=== PATIENT | male | born 1930 | race Caucasian/White ===

== ENCOUNTER → 2016-04-12 | Outpatient (CLI) | payer OTHER ==
[~2016-04-12] MED LIST: ACET-1175 PO; ACLI1AER3 INH; ALBUAER2 INH; ASPI81TA28 PO; DIGO0.122 PO; DOCU-94 PO; FLM4 PO; FRS/40 PO; LPT40 PO; MAGNSUS5 PO; POLY335019 PO; PRLSR20 PO; RIVA1TAB4 PO; SENN-61 PO; SODIENE PR
[2016-04-12 09:37] LABS: HEMATOCRIT 36.5 % (42-52); MEAN CELL VOLUME 93.1 fL (80-100); MEAN CORPUSCULAR HEMOGLOBIN 30.6 pg (25-34); MEAN CORPUSCULAR HGB CONC 32.9 g/dl (32-36); PLATELET COUNT 196 K/uL (130-400); RED BLOOD COUNT 3.92 M/uL (4.7-6.1); WHITE BLOOD COUNT 6.06 K/uL (4.8-10.8)
[2016-04-12 09:49] LABS: BLOOD UREA NITROGEN 25 mg/dl (7-18); BUN/CREATININE RATIO 22.9 (10-20); CALCIUM 8.7 mg/dl (8.5-10.1); CARBON DIOXIDE 32 mmol/L (21-32); CHLORIDE 104 mmol/L (98-107); GLUCOSE 81 mg/dl (70-99); SODIUM 141 mmol/L (136-145)
[2016-04-12 10:03] LABS: ALB/GLOB RATIO 0.8 (0.9-2); ALKALINE PHOSPHATASE 58 U/L (45-117); ALT/SGPT 36 U/L (12-78); AST/SGOT 24 U/L (15-37)
== END | disposition home or self-care (01) ==
LOC: C.LABUPBEA 09:02
PROVIDERS: ATTEND Family Medicine
DX: I48.2 Chronic atrial fibrillation (principal); R79.89 Other specified abnormal findings of blood chemistry; Z51.81 Encounter for therapeutic drug level monitoring; Z79.899 Other long term (current) drug therapy

== ENCOUNTER → 2016-04-16 | Outpatient (CLI) | payer OTHER | END | disposition home or self-care (01) | LOC: C.LABUPBEA 10:19 | PROVIDERS: ATTEND Family Medicine | DX: E03.9 Hypothyroidism, unspecified (principal) ==

== ENCOUNTER → 2016-05-06 | Outpatient (CLI) | payer OTHER ==
[2016-05-06 09:08] LABS: THYROXINE (T4) 7.5 mcg/dl (4.5-10.9)
[2016-05-06 09:09] LABS: T3 TOTAL 0.91 ng/ml (0.60-1.81)
== END ==
LOC: C.LABUPBEA 08:36
PROVIDERS: ATTEND Family Medicine
DX: E03.9 Hypothyroidism, unspecified (principal)

== ENCOUNTER → 2016-06-03 | Outpatient (CLI) | payer OTHER | LOC: C.LABUPBEA 08:08 | PROVIDERS: ATTEND Family Medicine | DX: E03.9 Hypothyroidism, unspecified (principal) ==

== ENCOUNTER → 2016-08-24 | Outpatient (CLI) | payer OTHER ==
[2016-08-24 09:09] LABS: BASO % 0.8 %; BASO ABS # 0.05 K/uL (0-0.2); COMPLETE YES; EOS % 2.8 %; HEMATOCRIT 37.9 % (42-52); IG% 0.2 %; LYMPH % 21.1 %; LYMPH ABS # 1.34 K/uL (1.2-3.4); MEAN CELL VOLUME 97.4 fL (80-100); MEAN CORPUSCULAR HEMOGLOBIN 31.1 pg (25-34); MEAN CORPUSCULAR HGB CONC 31.9 g/dl (32-36); MEAN PLATELET VOLUME 10.8 fL (7.4-10.4); MONO % 8.7 %; NEUT % 66.4 %; PLATELET COUNT 168 K/uL (130-400); RED BLOOD COUNT 3.89 M/uL (4.7-6.1); WHITE BLOOD COUNT 6.34 K/uL (4.8-10.8)
[2016-08-24 09:36] LABS: CALCIUM 8.5 mg/dl (8.5-10.1)
[2016-08-24 09:40] LABS: ALT/SGPT 28 U/L (12-78); BLOOD UREA NITROGEN 26 mg/dl (7-18); BUN/CREATININE RATIO 20.3 (10-20); CARBON DIOXIDE 32 mmol/L (21-32); CHLORIDE 103 mmol/L (98-107); CHOLESTEROL 91 mg/dl (0-200); GLUCOSE 85 mg/dl (70-99); MAGNESIUM 2.4 mg/dl (1.8-2.4); POTASSIUM 3.5 mmol/L (3.5-5.1); SODIUM 141 mmol/L (136-145); TRIGLYCERIDES 39 mg/dl (0-150); VERY LOW DENSITY LIPOPROT CALC 8 mg/dl
[2016-08-24 09:51] LABS: ALB/GLOB RATIO 0.9 (0.9-2); ALKALINE PHOSPHATASE 53 U/L (45-117); AST/SGOT 21 U/L (15-37); CHOLESTEROL/HDL RATIO 1.8; HDL CHOLESTEROL 50 mg/dl; LDL CHOLESTEROL CALCULATED 33 mg/dl
--- NOTE | 2016-09-02 10:14 | CODING QUERY MEDICAL NECESSITY ---
SUPPORTING DIAGNOSIS NEEDED Dr. Montero, A supporting diagnosis is required for the test/procedure performed on this patient in order for us to be reimbursed by the patient's insurance. Please provide a supporting diagnosis for the following test/procedure listed below next to the test name along with your signature. *If there is no additional diagnosis for this patient that would support the following test/procedure please document that below next to the test/procedure. Test(s)/Procedure(s) that require a supporting diagnosis: * ([id number]) VITAMIN D ASSAY DIAGNOSIS: DATE OF SERVICE: 08/24/16 Provider Signature: Date: Thank you Alfonso Meeks [facility] Information Management Once completed, please kindly fax back to [phone] For questions please call [phone]
== END | disposition home or self-care (01) ==
LOC: C.LABUPBEA 08:40
PROVIDERS: ATTEND Family Medicine
DX: E87.6 Hypokalemia (principal); E03.9 Hypothyroidism, unspecified; I50.9 Heart failure, unspecified; E78.5 Hyperlipidemia, unspecified; E55.9 Vitamin D deficiency, unspecified

== ENCOUNTER → 2016-09-07 | Outpatient (CLI) | payer OTHER ==
--- NOTE | 2016-10-25 05:30 | CODING QUERY MEDICAL NECESSITY ---
CQSUPPORTING DIAGNOSIS NEEDED A supporting diagnosis is required for the test/procedure performed on this patient in order for us to be reimbursed by the patient's insurance. Please provide a supporting diagnosis for the following test/procedure listed below next to the test name along with your signature. *If there is no additional diagnosis for this patient that would support the following test/procedure please document that below next to the test/procedure. Test(s)/Procedure(s) that require a supporting diagnosis: DOS 09/07/16 DIGOXIN THERAPUTIC NEEDS SIGNATURE AND DIAGNOSIS Provider Signature: Date: Thank you [facility] Information Management Once completed, please kindly fax back to [phone] For questions please call [phone]
== END ==
LOC: C.LABUPBEA 08:46
PROVIDERS: ATTEND Family Medicine
DX: Z01.89 Encounter for other specified special examinations (principal)

== ENCOUNTER → 2016-10-20 | Outpatient (CLI) | payer OTHER ==
[2016-10-21 09:37] LABS: URINE APPEARANCE CLOUDY (CLEAR); URINE BILIRUBIN NEG (NEG); URINE COLOR ORANGE; URINE EPITHELIAL CELL AUTO >30 /lpf (0-5); URINE NITRITE NEG (NEG); URINE PH 7.5 (4.5-7.5); URINE SPECIFIC GRAVITY 1.013 (1.000-1.030); UROBILINOGEN NEG (NEG)
[2016-10-21 09:51] LABS: MANUAL MICROSCOPIC REQUIRED? NO; REVIEW REQ? YES; SULFASALICYLIC ACID POS (NEG)
== END ==
LOC: C.LABUPBEA 23:00
PROVIDERS: ATTEND Nurse Practitioner Family
DX: R31.9 Hematuria, unspecified (principal)

== ENCOUNTER → 2016-10-21 | Outpatient (CLI) | payer OTHER ==
[2016-10-21 09:21] LABS: BASO % 0.6 %; BASO ABS # 0.04 K/uL (0-0.2); COMPLETE YES; EOS % 2.6 %; HEMATOCRIT 37.4 % (42-52); IG% 0.2 %; LYMPH % 27.4 %; LYMPH ABS # 1.76 K/uL (1.2-3.4); MEAN CELL VOLUME 97.1 fL (80-100); MEAN CORPUSCULAR HEMOGLOBIN 31.2 pg (25-34); MEAN CORPUSCULAR HGB CONC 32.1 g/dl (32-36); MEAN PLATELET VOLUME 10.9 fL (7.4-10.4); MONO % 9.3 %; NEUT % 59.9 %; PLATELET COUNT 180 K/uL (130-400); RED BLOOD COUNT 3.85 M/uL (4.7-6.1); WHITE BLOOD COUNT 6.43 K/uL (4.8-10.8)
== END ==
LOC: C.LABUPBEA 08:57
PROVIDERS: ATTEND Nurse Practitioner Family
DX: R31.9 Hematuria, unspecified (principal)

== ENCOUNTER → 2016-10-24 | Outpatient (CLI) | payer OTHER | LOC: C.LABUPBEA 08:41 | PROVIDERS: ATTEND Nurse Practitioner Family | DX: R31.9 Hematuria, unspecified (principal) ==

== ENCOUNTER → 2016-12-08 | Outpatient (CLI) | payer OTHER | LOC: C.LABUPBEA 08:23 | PROVIDERS: ATTEND Nurse Practitioner Family | DX: I48.2 Chronic atrial fibrillation (principal) ==

== ENCOUNTER → 2017-03-01 | Outpatient (CLI) | payer OTHER | END | disposition home or self-care (01) | LOC: C.LABUPBEA 08:21 | PROVIDERS: ATTEND Nurse Practitioner Family | DX: E03.9 Hypothyroidism, unspecified (principal) ==

== ENCOUNTER → 2017-03-07 | Outpatient (CLI) | payer OTHER | END | disposition home or self-care (01) | LOC: C.LABUPBEA 08:45 | PROVIDERS: ATTEND Nurse Practitioner Family | DX: I48.2 Chronic atrial fibrillation (principal); E03.9 Hypothyroidism, unspecified; Z51.81 Encounter for therapeutic drug level monitoring; Z79.899 Other long term (current) drug therapy ==

== ENCOUNTER → 2017-05-30 | Outpatient (CLI) | payer OTHER | LOC: C.LABUPBEA 08:31 | PROVIDERS: ATTEND Nurse Practitioner Family | DX: E03.9 Hypothyroidism, unspecified (principal); I48.2 Chronic atrial fibrillation ==

== ENCOUNTER → 2017-07-12 | Outpatient (CLI) | payer OTHER | LOC: C.LABUPBEA 14:13 | PROVIDERS: ATTEND Nurse Practitioner Family | DX: R31.9 Hematuria, unspecified (principal) ==

== ENCOUNTER → 2017-07-14 | Outpatient (CLI) | payer OTHER ==
[2017-07-14 10:06] LABS: BASO % 0.5 %; BASO ABS # 0.04 K/uL (0-0.2); EOS % 1.4 %; EOS ABS # 0.11 K/uL (0-0.5); HEMATOCRIT 33.9 % (42-52); IG# 0.01 K/uL (0.00-0.02); LYMPH % 21.3 %; LYMPH ABS # 1.66 K/uL (1.2-3.4); MEAN CELL VOLUME 96.6 fL (80-100); MEAN CORPUSCULAR HEMOGLOBIN 31.3 pg (25-34); MEAN CORPUSCULAR HGB CONC 32.4 g/dl (32-36); MEAN PLATELET VOLUME 10.1 fL (7.4-10.4); MONO % 8.1 %; MONO ABS # 0.63 K/uL (0.11-0.59); NEUT % 68.6 %; NEUT ABS # 5.33 K/uL (1.4-6.5); PLATELET COUNT 182 K/uL (130-400); RED CELL DISTRIBUTION WIDTH CV 15.9 % (11.5-14.5); RED CELL DISTRIBUTION WIDTH SD 55.5 fL (36.4-46.3); WHITE BLOOD COUNT 7.78 K/uL (4.8-10.8)
[2017-07-14 10:18] LABS: BLOOD UREA NITROGEN 34 mg/dl (7-18); CALCIUM 8.4 mg/dl (8.5-10.1); CARBON DIOXIDE 29 mmol/L (21-32); CREATININE 1.56 mg/dl (0.60-1.40); GLUCOSE 82 mg/dl (70-99); POTASSIUM 3.5 mmol/L (3.5-5.1); SODIUM 140 mmol/L (136-145)
== END ==
LOC: C.LABUPBEA 08:18
PROVIDERS: ATTEND Nurse Practitioner Family
DX: R31.9 Hematuria, unspecified (principal)

== ENCOUNTER → 2017-07-24 | Outpatient (CLI) | payer OTHER ==
[2017-07-24 10:39] LABS: BLOOD UREA NITROGEN 31 mg/dl (7-18); CALCIUM 8.4 mg/dl (8.5-10.1); CARBON DIOXIDE 26 mmol/L (21-32); CREATININE 1.86 mg/dl (0.60-1.40); GLUCOSE 82 mg/dl (70-99); SODIUM 138 mmol/L (136-145)
== END ==
LOC: C.LABUPBEA 09:43
PROVIDERS: ATTEND Nurse Practitioner Family
DX: I50.9 Heart failure, unspecified (principal)

== ENCOUNTER → 2017-07-27 | Outpatient (CLI) | payer OTHER ==
[2017-07-27 09:10] LABS: BLOOD UREA NITROGEN 28 mg/dl (7-18); CALCIUM 8.5 mg/dl (8.5-10.1); CARBON DIOXIDE 28 mmol/L (21-32); CREATININE 1.52 mg/dl (0.60-1.40); GLUCOSE 80 mg/dl (70-99); POTASSIUM 4.3 mmol/L (3.5-5.1); SODIUM 141 mmol/L (136-145)
== END ==
LOC: C.LABUPUNI 08:36
PROVIDERS: ATTEND Nurse Practitioner Family
DX: I50.9 Heart failure, unspecified (principal); E87.6 Hypokalemia

== ENCOUNTER 2019-01-23 10:24 | Inpatient (IN) ==
[2019-01-23] MEDS ORDERED: SODIUM CHLORIDE 0.9% 500 ML IV ONE ×2 (10:53→11:28)
[2019-01-23] MEDS ORDERED: SODIUM CHLORIDE 0.9% 250 ML IV PRN ×4 (10:53→19:55)
[2019-01-23 11:24] LABS: Hematocrit (blood only) 19.5 % (42-52); Hemoglobin 5.7 g/dL (14.0-18.0); Mean Corpuscular Hemoglobin 30.5 pg (25-34); Mean Corpuscular Hgb Conc 29.2 g/dL (32-36); Mean Corpuscular Volume 104.3 fL (80-100); Mean Platelet Volume 10.5 fL (7.4-10.4); Platelet Count 208 K/uL (130-400); RDW Coefficient of Variation 21.8 % (11.5-14.5); RDW Standard Deviation 80.7 fL (36.4-46.3); Red Blood Count 1.87 M/uL (4.7-6.1); White Blood Count 9.06 K/uL (4.8-10.8)
[2019-01-23 11:25] LABS: INR 1.1 (0.9-1.1); Prothrombin Time 11.3 Seconds (9.0-12.0)
[2019-01-23 11:28] LABS: Aspartate Aminotransferase 34 U/L (15-37); BUN Creatinine Ratio 37.3 (10-20); Blood Urea Nitrogen 57 mg/dl (7-18); Calcium 8.8 mg/dl (8.5-10.1); Carbon Dioxide 25 mmol/L (21-32); Chloride 115 mmol/L (98-107); Creatinine Clr Calc Pharmacy 33.8 ml/min; Est GFR (African American) 47.4; Est GFR (Non-African American) 40.9; Glucose 91 mg/dl (70-99); Lipase 119 U/L (73-393); Magnesium 2.9 mg/dl (1.8-2.4); Potassium 4.7 mmol/L (3.5-5.1); Sodium 145 mmol/L (136-145)
[2019-01-23 11:33] LABS: Alanine Aminotransferase 37 U/L (12-78); Albumin Globulin Ratio 0.4 (0.9-2); Alkaline Phosphatase 111 U/L (45-117); Bilirubin,Total 0.3 mg/dl (0.2-1); Globulin 4.9 gm/dl (2.5-4.0); NT Pro B Type Natriuretic Pept 1218 pg/ml (0-1800); Total Protein 6.9 gm/dl (6.4-8.2); Troponin I < 0.015 ng/ml (0-0.045)
[2019-01-23 11:40] LABS: Anisocytosis Present; Basophils # (auto) 0.01 K/uL (0-0.2); Basophils % (auto) 0.1 %; Echinocytes 1+; Eosinophils # (auto) 0.08 K/uL (0-0.5); Eosinophils % (auto) 0.9 %; Immature Granulocytes # (auto) 0.03 K/uL (0.00-0.02); Immature Granulocytes % (auto) 0.3 %; Lymphocytes # (auto) 0.89 K/uL (1.2-3.4); Lymphocytes % (auto) 9.8 %; Monocytes # (auto) 0.72 K/uL (0.11-0.59); Monocytes % (auto) 7.9 %; Neutrophils # (auto) 7.33 K/uL (1.4-6.5)
[2019-01-23] MEDS ORDERED: OPTIRAY 320 125ml IV PRN (11:46)
[2019-01-23] MEDS ORDERED: PANTOprazole 40 MG in SYRINGE 0 ML IV ONE ×2 (12:00→13:15)
--- NOTE | 2019-01-23 12:29 | CT Scan Report ---
ABDOMEN AND PELVIS CT WITH IV CONTRAST CT DOSE: 281.04 mGy.cm HISTORY: GI bleed. TECHNIQUE: Multiaxial CT images of the abdomen and pelvis were performed following the use of intrave nous contrast. A dose lowering technique was utilized adhering to the principles of ALARA. COMPARISON STUDY: Abdomen and pelvis CT 04/02/2015. FINDINGS: Small bilateral pleural effusions. Consolidation within the bilateral lower lobes. Intersti tial thickening at the lung bases is noted. Dense pericardial calcifications. No pneumoperitoneum. No pneumatosis. There is a right total hip arthroplasty. The heart is enlarged. No hepatic or splenic m asses. The adrenal glands and pancreas are unremarkable. An IVC filter is noted. No retroperitoneal l ymphadenopathy. There is a cluster of stones within the lower pole of the left kidney. There are 2 ri ght renal calculi with the largest in the lower pole measuring 1 cm. Mild bilateral perinephric fat s tranding. There is moderate bilateral hydroureteronephrosis to the level of the ureterovesical juncti ons. No definite obstructing ureteral calculi identified. Of note, the distal ureters and bladder are partially obscured by metallic artifact. There is a Persaud catheter within the bladder lumen. The mary jane dder is markedly thickening and contains a few small bladder diverticula. There are few stones within the bladder. There is inflammatory change surrounding the bladder. There is diffuse urothelial thick ening within the bilateral renal collecting systems and bilateral ureters. There is inflammatory rivers ge within the right upper quadrant surrounding the duodenal bulb. Possible focal ulceration within th e anterior wall of the proximal duodenum best seen on image 153. This measures 1 cm. There is also mi ld thickening within the proximal duodenum. Therefore, these findings are concerning for peptic ulcer disease/impending perforation. No extraluminal gas identified this time. The inflammatory change als o surrounds the gallbladder. However, there is no definite gallbladder wall thickening. This may be r eactive to the suspected duodenal abnormality rather than an acute cholecystitis. 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 Moderate well-formed stool within the colon. M ild presacral and body wall edema. No evidence for bowel obstruction. Normal appendix. IMPRESSION: 1. Inflammatory change within the right upper quadrant surrounding the thickened proximal duodenum. P ossible 1 cm ulceration along the anterior wall of the proximal duodenum. Therefore, findings are con cerning for peptic ulcer disease with possible impending perforation. No evidence for extraluminal ga s at this time. Endoscopy is recommended for further evaluation. 2. The inflammatory change also a extends to the gallbladder. However, there is no gallbladder wall t hickening. Acute cholecystitis would be considered less likely. Clinical correlation recommended. 3. Moderate bilateral hydroureteronephrosis with diffuse urothelial thickening within the renal colle cting systems and ureters. The bilateral hydronephrosis favors chronic outlet obstruction. Associated urothelial thickening may represent a superimposed pyelitis/pyelonephritis. Recommend correlation wi urinalysis. 4. There is also marked bladder wall thickening and inflammatory change which is decompressed by Fole y catheter. Findings are consistent with a cystitis. 5. Small bilateral pleural effusions with consolidation of the bilateral lower lobes. This may repres ent atelectasis or pneumonia. 6. Cardiomegaly with pericardial calcifications, unchanged. 7. Diffuse interstitial thickening within the lung bases. This may represent mild pulmonary edema. A. Bilateral nephrolithiasis. 9. Additional findings as described above. Electronically signed by: Zan Rivera M.D. 01/23/2019 12:27 PM
[2019-01-23] MEDS: PANTOprazole 40 MG in DEXTROSE 5% 100 ML IV SCH ×2 (12:57→17:03)
[2019-01-23] MEDS ORDERED: ICU PROTOCOL FOR HYPERGLYCEMIA PRN (13:14)
[2019-01-23] MEDS ORDERED: SODIUM CHLORIDE 0.9% 1000ML 1,000 ML IV SCH (13:15)
[2019-01-23] MEDS ORDERED: FAMOTIDINE 20MG/5ML IV PUSH IV STA (13:38)
--- NOTE | 2019-01-23 13:39 | Billing Data ---
Coding Level of Care Code Critical Care 1st 30-74 mins
--- NOTE | 2019-01-23 13:39 | History & Physical Report ---
Date of Service January 23, 2019 Assessment & Plan (1) Hypovolemic shock: (2) GI bleed: Acute blood loss anemia secondary to above Admit to ICU 2 units of packed RBCs ordered Received 1 L normal saline Placed on 70 cc/h normal saline Received Pepcid 20 mg IV x1 Received Protonix 80 mg IV then placed on Protonix drip GI consulted to/and was informed ICU consulted Patient remains full code, power of patent prosecution attorney is his brother who was informed with the updates SCD boots for DVT prophylaxis (3) Atrial fibrillation: Was in digoxin at home, heart rate is inappropriately low in the 50s, will order digoxin level (4) Duodenal ulcer: (5) Encephalopathy acute: Likely multifactorial secondary to hypotension, worsening dementia, GI bleed, severe anemia History of Present Illness 88 years old man with past medical history of dyslipidemia, hypothyroidism, BPH, A. fib on Xarelto was sent to the hospital from [facility] as he had a large bloody bowel movement overnight. I spoke with his nurse Hilda who told me that he had fresh blood overnight, there was another report that said he had also melena/black stool likely from the nurse before her. As far as his nurse Hilda said she was only one large bloody bowel movement, patient had a CBC done this morning that showed a hemoglobin of 5.7, he was sent to the ED, his low hemoglobin was confirmed, he was hypotensive 86/47, CT scan abdomen showed inflammatory change in right upper quadrant and possible 1 cm ulceration along the anterior wall of the proximal duodenum that is concerning for peptic ulcer with impending perforation. As per residential patient is full code, currently he is too weak to have a conversation, his brother has not visited him in a long time and was not aware of his current condition. Nursing staff at residential reported that his baseline was slightly dementia but was able to walk with cleaner assistant, able to have a conversation. Primary Care Provider: [facility] Allergies Allergy/AdvReac Type Severity Reaction Status Date / Time No Known Allergies Allergy Unknown Verified 01/23/19 12:29 Home Medications Home Medications Medication Instructions Recorded Confirmed Type digoxin 125 mcg PO DAILY #0 tab 01/27/15 01/23/19 History acetaminophen 650 mg PO Q6H PRN #0 tab 05/17/15 01/23/19 History docusate sodium 100 mg PO BID 30 Days #30 cap 05/17/15 01/23/19 History magnesium hydroxide [Milk of 30 ml PO DAILY #0 ml 05/17/15 01/23/19 History Magnesia] sodium phosphates [Fleet Enema] 118 ml IN DAILY PRN #0 btl 05/17/15 01/23/19 History B complex-minerals [Stress B Plus 1 tab PO DAILY 01/23/19 01/23/19 History Zinc] atorvastatin 40 mg PO HS 01/23/19 01/23/19 History bisacodyl 10 mg IN DAILY PRN 01/23/19 01/23/19 History cholecalciferol (vitamin D3) 2,000 unit PO DAILY 01/23/19 01/23/19 History levothyroxine 50 mcg PO DAILY 01/23/19 01/23/19 History multivitamin 1 tab PO DAILY 01/23/19 01/23/19 History potassium chloride 20 meq PO DAILY 01/23/19 01/23/19 History rivaroxaban [Xarelto] 15 mg PO DAILY 01/23/19 01/23/19 History sennosides-docusate sodium 1 tab-cap PO DAILY 01/23/19 01/23/19 History [Senokot-S] tamsulosin 0.4 mg PO HS 01/23/19 01/23/19 History Past Med/Surg History Medical History (Updated 01/23/19 @ 13:34 by Torsten Freitas MD) Left acute arterial ischemic stroke, MCA (middle cerebral artery) Pneumonia of both lower lobes Sepsis Family History (Updated 01/23/19 @ 13:27 by Jona Augustin) Other Family history non-contributory Social History Smoking Status: Unknown if ever smoked Review of Systems Review of Systems: Review of systems unobtainable due to patient medical condition Physical Exam Physical Exam: Physical examination General frail elderly man appears to be in severe distress HEENT: Atraumatic , normocephalic /appears to be pale with dry mucous membrane /normal external ear inspection Neck: Supple /no swelling /central trach Heart: S1/S2 tachycardia/no gallop /no rub /no murmur Lungs: Clear to auscultation bilaterally/poor inspiratory effort, no wheezing/no use of accessory muscles of respiration Abdomen: Soft/nontender/no guarding/no rebound/no organomegaly/no pulsatile mass Musculoskeletal: No swelling/no edema/no tenderness/normal range of motion Neuro exam: Lethargic but able to follow commands Psychiatric evaluation: Unable to evaluate Skin: No rash on exposed skin area/no erythema Extremity: No edema E Results & Data Vital Signs (Past 12 Hours) Vital Signs Temp Pulse Pulse Resp BP BP Pulse Ox 01/23/19 13:15 50 L 16 86/47 L 01/23/19 12:55 62 18 95/43 L 96 01/23/19 12:40 35.0 C L 52 L 16 81/45 L 96 01/23/19 12:30 35.0 C L 65 68 16 82/47 L 82/47 L 97 01/23/19 12:20 34.8 C L 60 18 92/58 L 99 01/23/19 11:00 60 22 101/49 L 98 01/23/19 10:58 64 21 97 01/23/19 10:41 95 01/23/19 10:38 33.8 C L 60 18 94/54 L 95 01/23/19 10:31 60 20 96/69 L 98 Code Status & VTE Plan Code Status Full code Critical Care Time Total Critical Care Time: 40 PG Care Time/CCT Total # of Minutes Spent Total Time Spent with Patient: 35 minutes total time spent is greater than 50% in coordination of care (as documented) at patient's floor/unit and/or counseling patient/family discussion of care with nursing staff Total Critical Care Time: 40
[2019-01-23] MEDS ORDERED: PROTHROMBIN COMP CONC- KCENTRA 2,000 UNITS in SYRINGE 0 ML IV SCH (14:00)
--- NOTE | 2019-01-23 14:46 | Critical Care Consultation ---
Date of Consultation January 23, 2019 Assessment & Plan (1) Acute blood loss anemia: Reason Critically Ill: Patient is an 88 y/o male with hx of Afib on Xarelto who presented from SNF with acute blood loss anemia (outpatient lab of 5.2) with reports of melena this AM. Neuro: Oriented to person confused to place and time Cardiac/Vascular: Hx of atrial Fibrillation on Xarelto - unfortunately reported to receive Xarelto this AM per staff BPs in ED were 80s/40s; now 100s/60s following fluid resuscitation. Pulse in 60s and is on Digoxin; Digoxin level was ordered by hospitalist on admission and is pending Calcified pericardium viewed on CT Abd/Pelvis, along with Cardiomegaly Monitor Hemodynamics with pressure support with IVFs. Trop x1 was negative in ED BNP drawn in ED was WNL Hold Digoxin and hold atorvastatin Pulm: No requiring supplemental O2 On CT Abd/Pelvis; Small bilateral pleural effusions with consolidation of the bilateral lower lobes. This may represent atelectasis or pneumonia. Continuous Pulse Ox GI: Presumed upper GI bleed with Melena; on Xarelto; denies prior hx of GI bleed. CT Abd/Pelvis with IV contrast performed in ED; noted to have 1cm ulceration of duodenum - most likely source of GI bleed. - Inflammatory change within the right upper quadrant surrounding the thickened proximal duodenum. Possible 1 cm ulceration along the anterior wall of the proxi mal duodenum. Therefore, findings are concerning for peptic ulcer disease with possible impending perforation. No evidence for extraluminal gas at this time. Endoscopy is recommended for further evaluation. - The inflammatory change also a extends to the gallbladder. However, there is no gallbladder wall thickening. Acute cholecystitis would be considered less likely. Clinical correlation recommended. GI consulted and made aware; will consider General Surgery consult based on EGD findings. Diet: NPO PPI Pantoprazole drip started in ED, will continue; also received Pepcid 20mg IV push ordered by hospitalist. Lipase was 119 WNL Renal/Lytes: Sodium and potassium were WNL Creatinine was 1.52 which appears to be at baseline from prior reported values in EMR Calcium was 8.8 Mag elevated at 2.9 Did receive 1.5L Bolus in ED BUN elevated consistent with GI bleed IVF NSS @ 70mL : Chronic indwelling morocho cath Urine cultures drawn in ED CT Abd/Pelvis reports the following: - Moderate bilateral hydroureteronephrosis with diffuse urothelial thickening within the renal collecting systems and ureters. The bilateral hydronephrosis favors chronic outlet obstruction. Associated urothelial thickening may represent a superimposed pyelitis/pyelonephritis. Recommend correlation with urinalysis. - There is also marked bladder wall thickening and inflammatory change which is decompressed by Morocho catheter. Findings are consistent with a cystitis. Endo: Hx of Hypothyroid; med list reports Synthroid 50mcg daily; Had TSH drawn this AM at [facility] - which was elevated 7.280; Free T4 was WNL 1.07 No reported or documented hx of DM ICU hyperglycemia protocol ordered Heme: Acute blood loss anemia from GI Bleed - melena; most likely Upper GI from Hgb level this AM 5.2 at [facility]; then was 5.7 in ED- review of EMR shows prior values of 12/15/18 of 9.4; 12/26/18 of 8.1; could be slow GI bleed; prior values were 10.7-11 in 2018 Will trend H+H Platelets WNL 208; will order Fibrinogen level, no current signs of DIC; no other external sources of bleeding outside of melena PT was 11.3; INR 1.1 WNL from ED workup 2 units of pRBCs were ordered in ED; KCentra was ordered and given in ED FFP was ordered in ED, but will give pRBCs as priority then okay for FFP ID: Blood cultures drawn Urine cultures drawn Chronic Indwelling morocho catheter Lines: 14G peripheral IVs DVT ppx: SCDs; chemical contraindicated in GI bleed Resuscitation Status: Full Code; did discuss with patient; POA brother is estranged and has not talked about code status wishes. (2) GI bleed: (3) Hypovolemic shock: (4) Atrial fibrillation: (5) Duodenal ulcer: (6) Encephalopathy acute: Supervising Physician Co-Signing Physician Notes Patient seen and examined. EMR reviewed. Discussed with practice resident. Agree with assessment and plan as noted. Impression: 88-year-old male with likely upper GI bleed. Recommendations: 1. Upper GI bleed: Suspect peptic ulcer disease given CT findings. Continue Protonix. Plan on EGD today after resuscitation. Continue blood products and serial hemoglobin and hematocrits. May need general surgery consultation based on but will hold off for now. Continue n.p.o. pending EGD results. 2. Mild acute kidney injury: Suspect prerenal. Continue IV fluids and resuscitation with blood products. Reassess in the morning. CT scan did demonstrate mild bilateral hydronephrosis but the patient does have a chronic indwelling Morocho. 3. Coagulopathy: The patient was maintained on Xarelto for atrial fibrillation. He received Kcentra in the emergency room hold all anticoagulation for now. DVT prophylaxis will be applied with SCDs only. 4. Protein calorie malnutrition with cachexia: Suspect secondary to poor p.o. intake. Continue to follow for now. Dietary consultation may be considered once the patient can take oral intake. 5. History of atrial fibrillation: Appears rate controlled currently. To need to follow for now. Additional recommendations will be based once we have EGD data. Appreciate GI assistance History of Present Illness Reason for Consultation: Acute blood loss anemia; GI Bleed Requesting Physician: Dr. Freitas Attending Physician: Torsten Freitas MD History of Present Illness History limited by: Confusion. Mr. Katy Castanon is an 88 y/o male who presented from SNF for abnormal Hgb of 5.2 after nursing staff noticed melena this AM. He is on Xarelto for afib. Nursing staff still gave patient Xarelto this AM per ER report. He not a reliable historian. He does deny complaints. He denies abdominal pain, shortness of breath, chest pain, dizziness, weakness. He did have two units of pRBCs ordered and was getting one unit transfused when evaluated in ED. He did get IVF 1L Bolus with soft systolic pressures that were improved s/p fluid resuscitation. He denies prior GI Bleed when asked. He is not able to endorse wishes of code status. His brother was contacted who was his reported POA but was unable to signify if patient had wishes other than being full code status. Allergies Allergy/AdvReac Type Severity Reaction Status Date / Time No Known Allergies Allergy Unknown Verified 01/23/19 12:29 Home Medications Home Medications Medication Instructions Recorded Confirmed Type digoxin 125 mcg PO DAILY #0 tab 01/27/15 01/23/19 History acetaminophen 650 mg PO Q6H PRN #0 tab 05/17/15 01/23/19 History docusate sodium 100 mg PO BID 30 Days #30 cap 05/17/15 01/23/19 History magnesium hydroxide [Milk of 30 ml PO DAILY #0 ml 05/17/15 01/23/19 History Magnesia] sodium phosphates [Fleet Enema] [address] DAILY PRN #0 btl 05/17/15 01/23/19 History B complex-minerals [Stress B Plus 1 tab PO DAILY 01/23/19 01/23/19 History Zinc] atorvastatin 40 mg PO HS 01/23/19 01/23/19 History bisacod[address] DAILY PRN 01/23/19 01/23/19 History cholecalciferol (vitamin D3) 2,000 unit PO DAILY 01/23/19 01/23/19 History levothyroxine 50 mcg PO DAILY 01/23/19 01/23/19 History multivitamin 1 tab PO DAILY 01/23/19 01/23/19 History potassium chloride 20 meq PO DAILY 01/23/19 01/23/19 History rivaroxaban [Xarelto] 15 mg PO DAILY 01/23/19 01/23/19 History sennosides-docusate sodium 1 tab-cap PO DAILY 01/23/19 01/23/19 History [Senokot-S] tamsulosin 0.4 mg PO HS 01/23/19 01/23/19 History Patient History Medical History Left acute arterial ischemic stroke, MCA (middle cerebral artery) Pneumonia of both lower lobes Sepsis Family History Other Family history non-contributory Social History Smoking Status: Unknown if ever smoked Review of Systems Review of Systems: Unobtainable due to cognitive status Physical Exam Constitutional: + thin, + frail appearing, cooperative and comfortable Eyes: PERRL and EOM intact bilaterally ENMT: Nose: no external nose abnormality and no epistaxis Mouth: + dry oral mucous membranes Neck: normal visual inspection and trachea midline Respiratory: no respiratory distress and does not use accessory muscles Auscultation: lungs clear to auscultation bilaterally Cardiovascular: Rate/Rhythm: regular rate and + irregularly irregular Gastrointestinal (Abdomen): Inspection/Auscultation: abdomen normal to i nspection; caput medusae absent Percussion/Palpation: abdomen nontender, no guarding and abdomen not rigid Musculoskeletal: Head/Neck/Chest: normocephalic and head atraumatic Skin: no rashes, warm and dry Neurologic: moves all extremities and awake Psychiatric: Orientation: alert and oriented to person; + not oriented to place and + not oriented to time Affect: + irritable affect Results & Data Vital Signs (Past 12 Hours) Vital Signs Temp Pulse Pulse Resp BP BP Pulse Ox 01/23/19 13:45 34.5 C L 60 18 114/54 L 98 01/23/19 13:15 50 L 16 86/47 L 01/23/19 12:55 62 18 95/43 L 96 01/23/19 12:40 35.0 C L 52 L 16 81/45 L 96 01/23/19 12:30 35.0 C L 65 68 16 82/47 L 82/47 L 97 01/23/19 12:20 34.8 C L 60 18 92/58 L 99 01/23/19 11:00 60 22 101/49 L 98 01/23/19 10:58 64 21 97 01/23/19 10:41 95 01/23/19 10:38 33.8 C L 60 18 94/54 L 95 01/23/19 10:31 60 20 96/69 L 98 PG Care Time/CCT Total # of Minutes Spent Total Time Spent with Patient: Total time spent is greater than 50% in coordination of care (as documented) at patient's floor/unit and/or counseling patient: Resident Activity Tracking Resident Involvement: Resident Care Provided Care Provided: Adult Hospital Medicine
[2019-01-23] MEDS ORDERED: METOCLOPRAMIDE HCL 20 MG in SODIUM CHLORIDE 0.9% 50 ML IV ONE (15:00)
--- NOTE | 2019-01-23 15:02 | Gastrointestinal Consultation ---
Date of Consultation January 23, 2019 Assessment & Plan (1) Acute blood loss anemia: (2) GI bleed: (3) Hypovolemic shock: 1. NPO for now. 2. Reglan 10 mg IV x 1 now. 3. Continue PPI ggt at 8 mg/hr. 4. EGD with Dr. Schneider in the OR. 5. Recommend surgical consultation. 6. Additional recommendations results of testing. 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 History of Present Illness Reason for Consultation: GIB Requesting Physician: Dr. Gallardo Attending Physician: Torsten Freitas MD History of Present Illness Patient is a 88 year-old male with a history of atrial fibrillation and altered mental status residing at a [facility] admitted with profound anemia noted to have melena witnessed by staff at [facility]. On arrival, he was noted to have a H&H of 5.7/19.5. Patient is hypotensive. Receiving his second unit of packed red blood cells. He is NPO and remains on a PPI ggt. CT imaging was obtained and demonstrated "Inflammatory change within the right upper quadrant surrounding the thickened proximal duodenum. Possible 1 cm ulceration along the anterior wall of the proximal duodenum. Therefore, findings are concerning for peptic ulcer disease with possible impending perforation". He is unable to provide any reliable medical history. His brother is the POA and is not present at the time of evaluation. Allergies Allergy/AdvReac Type Severity Reaction Status Date / Time No Known Allergies Allergy Unknown Verified 01/23/19 12:29 Home Medications Home Medications Medication Instructions Recorded Confirmed Type digoxin 125 mcg PO DAILY #0 tab 01/27/15 01/23/19 History acetaminophen 650 mg PO Q6H PRN #0 tab 05/17/15 01/23/19 History docusate sodium 100 mg PO BID 30 Days #30 cap 05/17/15 01/23/19 History magnesium hydroxide [Milk of 30 ml PO DAILY #0 ml 05/17/15 01/23/19 History Magnesia] sodium phosphates [Fleet Enema] 118 ml DC DAILY PRN #0 btl 05/17/15 01/23/19 History B complex-minerals [Stress B Plus 1 tab PO DAILY 01/23/19 01/23/19 History Zinc] atorvastatin 40 mg PO HS 01/23/19 01/23/19 History bisacodyl 10 mg DC DAILY PRN 01/23/19 01/23/19 History cholecalciferol (vitamin D3) 2,000 unit PO DAILY 01/23/19 01/23/19 History levothyroxine 50 mcg PO DAILY 01/23/19 01/23/19 History multivitamin 1 tab PO DAILY 01/23/19 01/23/19 History potassium chloride 20 meq PO DAILY 01/23/19 01/23/19 History rivaroxaban [Xarelto] 15 mg PO DAILY 01/23/19 01/23/19 History sennosides-docusate sodium 1 tab-cap PO DAILY 01/23/19 01/23/19 History [Senokot-S] tamsulosin 0.4 mg PO HS 01/23/19 01/23/19 History Patient History Medical History Left acute arterial ischemic stroke, MCA (middle cerebral artery) Pneumonia of both lower lobes Sepsis Family History Other Family history non-contributory Social History Smoking Status: Unknown if ever smoked Immunizations: Unable to obtain from patient due to altered mental status Review of Systems Review of Systems: Unobtainable due to cognitive status Physical Exam Constitutional: + thin Eyes: EOM intact bilaterally Neck: normal visual inspection Respiratory: + labored breathing Auscultation: + rhonchi Cardiovascular: Rate/Rhythm: regular rate, regular rhythm and + tachycardic Gastrointestinal (Abdomen): Inspection/Auscultation: normal bowel sounds Percussion/Palpation: abdomen soft Musculoskeletal: Ankle: + effusion Skin: no rashes, warm and dry + pallor Psychiatric: Orientation: alert; + not oriented to place and + not oriented to time Results & Data Vital Signs (Past 12 Hours) Vital Signs Temp Pulse Pulse Resp BP BP Pulse Ox 01/23/19 13:45 34.5 C L 60 18 114/54 L 98 01/23/19 13:15 50 L 16 86/47 L 01/23/19 12:55 62 18 95/43 L 96 01/23/19 12:40 35.0 C L 52 L 16 81/45 L 96 01/23/19 12:30 35.0 C L 65 68 16 82/47 L 82/47 L 97 01/23/19 12:20 34.8 C L 60 18 92/58 L 99 01/23/19 11:00 60 22 101/49 L 98 01/23/19 10:58 64 21 97 01/23/19 10:41 95 01/23/19 10:38 33.8 C L 60 18 94/54 L 95 01/23/19 10:31 60 20 96/69 L 98 Laboratory Results Abnormal lab results 01/23/19 01/23/19 01/23/19 Range/Units 10:52 10:52 10:52 RBC 1.87 L (4.7-6.1) M/uL Hgb 5.7 L* (14.0-18.0) g/dL Hct 19.5 L* (42-52) % MCV 104.3 H (80-100) fL MCHC 29.2 L (32-36) g/dL RDW Std Deviation 80.7 H (36.4-46.3) fL RDW Coeff of Elaine 21.8 H (11.5-14.5) % MPV 10.5 H (7.4-10.4) fL Immature Gran # (Auto) 0.03 H (0.00-0.02) K/uL Neut # (Auto) 7.33 H (1.4-6.5) K/uL Lymph # (Auto) 0.89 L (1.2-3.4) K/uL [place] # (Auto) 0.72 H (0.11-0.59) K/uL Chloride 115 H (98-107) mmol/L BUN 57 H (7-18) mg/dl Creatinine 1.52 H (0.6-1.4) mg/dl BUN/Creatinine Ratio 37.3 H (10-20) Magnesium 2.9 H (1.8-2.4) mg/dl Albumin 2.0 L (3.4-5.0) gm/dl Globulin 4.9 H (2.5-4.0) gm/dl Albumin/Globulin Ratio 0.4 L (0.9-2) Crossmatch See Detail PG Care Time/CCT Total # of Minutes Spent Total Time Spent with Patient: Total time spent is greater than 50% in coordination of care (as documented) at patient's floor/unit and/or counseling patient: (1) GI bleed GI bleed type/associated pathology: unspecified gastrointestinal hemorrhage type Qualified Code(s): K92.2 - Gastrointestinal hemorrhage, unspecified
[2019-01-23] MEDS ORDERED: fentaNYL citrate 100 MCG/2 ML VIAL ONE (15:33)
[2019-01-23 15:40] LABS: Fibrinogen 456 mg/dl (184-400)
--- NOTE | 2019-01-23 16:47 | Anesthesiology Consultation ---
Date of Service January 23, 2019 Assessment & Plan (1) Encounter for pre-operative examination: (2) Upper GI bleed: (3) Anemia: (4) Altered mental status: (5) CKD (chronic kidney disease): (6) Encephalopathy acute: (7) Duodenal ulcer: (8) Atrial fibrillation: (9) GI bleed: Chart Review Chart Review: Acceptable Risk for Surgery (surgery is an emergency for upper GI bleed) Consults Requested none patient is being followed in the ICU ASA [id number] History Surgery Operation Date: 01/23/19 07:00 Proposed Procedures p Esophagogastroduodenoscopy for GI Bleed - Arden Whatley Case, DO Height/Weight Height: 6 ft Weight: 68.4 kg Allergies Allergy/AdvReac Type Severity Reaction Status Date / Time No Known Allergies Allergy Unknown Verified 01/23/19 12:29 Medications Home Medications Medication Instructions Recorded Confirmed Last Taken digoxin 125 mcg PO DAILY #0 tab 01/27/15 01/23/19 01/23/19 acetaminophen 650 mg PO Q6H PRN #0 tab 05/17/15 01/23/19 Unknown docusate sodium 100 mg PO BID 30 Days #30 cap 05/17/15 01/23/19 01/23/19 magnesium hydroxide [Milk of 30 ml PO DAILY #0 ml 05/17/15 01/23/19 01/20/19 Magnesia] sodium phosphates [Fleet Enema] 118 ml IA DAILY PRN #0 btl 05/17/15 01/23/19 Unknown B complex-minerals [Stress B Plus 1 tab PO DAILY 01/23/19 01/23/19 01/23/19 Zinc] atorvastatin 40 mg PO HS 01/23/19 01/23/19 01/22/19 bisacodyl 10 mg IA DAILY PRN 01/23/19 01/23/19 01/12/19 cholecalciferol (vitamin D3) 2,000 unit PO DAILY 01/23/19 01/23/19 01/23/19 levothyroxine 50 mcg PO DAILY 01/23/19 01/23/19 01/23/19 multivitamin 1 tab PO DAILY 01/23/19 01/23/19 01/23/19 potassium chloride 20 meq PO DAILY 01/23/19 01/23/19 01/23/19 rivaroxaban [Xarelto] 15 mg PO DAILY 01/23/19 01/23/19 01/23/19 sennosides-docusate sodium 1 tab-cap PO DAILY 01/23/19 01/23/19 01/23/19 [Senokot-S] tamsulosin 0.4 mg PO HS 01/23/19 01/23/19 01/22/19 Active Medications Generic Name Dose Route Start Last Admin Trade Name Freq PRN Reason Stop Dose Admin Sodium Chloride 250 mls @ 15 mls/hr 01/23/19 10:53 01/23/19 12:20 Nss IV 02/22/19 10:52 15 mls/hr .[id number] PRN Administration For Transfusion Pantoprazole Sodium 40 mg/ 100 mls @ 20 mls/hr 01/23/19 13:00 01/23/19 12:57 Dextrose IV 02/22/19 12:59 20 mls/hr Q5H DENIS Administration Sodium Chloride 1,000 mls @ 70 mls/hr 01/23/19 13:15 01/23/19 15:10 Nss 1000ml IV 02/22/19 13:14 70 mls/hr .[id number] DENIS Administration Prothrombin Complex Concent ( 80 mls @ 10 mls/min 01/23/19 14:00 01/23/19 13:57 Human) 2,000 units/ Syringe IV 01/23/19 18:00 10 mls/min TODAY@1400 DENIS Administration Protocol Ioversol 94 ml 01/23/19 11:46 01/23/19 11:47 Optiray 320 125ml IV 01/27/19 11:45 94 ml ONCE PRN Administration Interaction Checking NPO Last Intake of Fluids Comment: Unknown according to [facility] Date Last Intake of Solids: 01/23/19 Time Last Intake of Solids: 08:30 Past Medical History Medical History (Updated 01/23/19 @ 16:53 by Zan Hernandez MD) Altered mental status (Acute) Anemia (Acute) Cardiomegaly CKD (chronic kidney disease) (Acute) GI bleed (Acute) Left acute arterial ischemic stroke, MCA (middle cerebral artery) Pneumonia of both lower lobes Sepsis Past Family History Family History Other Family history non-contributory Social History Smoking Status: Unknown if ever smoked Physical Exam Vital Signs Last Vital Signs Temp 35.8 C L 01/23/19 16:44 Pulse 74 01/23/19 16:44 Resp 14 01/23/19 16:44 BP 110/68 01/23/19 16:44 Pulse Ox 96 01/23/19 16:44 Testing Laboratory Results 01/23/19 10:52 01/23/19 10:52 PT 11.3 Seconds (9.0-12.0) 01/23/19 10:52 INR 1.1 (0.9-1.1) 01/23/19 10:52 Blood Type A Positive 01/23/19 10:52 Antibody Screen NEGATIVE 01/23/19 10:52 Electrocardiogram Date: 01/23/19 Findings: + NSST changes (infererior, anterolateral), + AFIB @ (65) and + T wave inversion (anterior) Chest X-Ray ABDOMEN AND PELVIS CT WITH IV CONTRAST CT DOSE: 281.04 mGy.cm HISTORY: GI bleed. TECHNIQUE: Multiaxial CT images of the abdomen and pelvis were performed following the use of intravenous contrast. A dose lowering technique was utilized adhering to the principles of ALARA. COMPARISON STUDY: Abdomen and pelvis CT 04/02/2015. FINDINGS: Small bilateral pleural effusions. Consolidation within the bilateral lower lobes. Interstitial thickening at the lung bases is noted. Dense per icardial calcifications. No pneumoperitoneum. No pneumatosis. There is a right total hip arthroplasty. The heart is enlarged. No hepatic or splenic masses. The adrenal glands and pancreas are unremarkable. An IVC filter is noted. No retroperitoneal lymphadenopathy. There is a cluster of stones within the lower pole of the left kidney. There are 2 right renal calculi with the largest in the lower pole measuring 1 cm. Mild bilateral perinephric fat stranding. There is moderate bilateral hydroureteronephrosis to the level of the ureterovesical junctions. No definite obstructing ureteral calculi identified. Of note, the distal ureters and bladder are partially obscured by metallic artifact. There is a Persaud catheter within the bladder lumen. The bladder is markedly thickening and contains a few small bladder diverticula. There are few stones within the bladder. There is inflammatory change surrounding the bladder. There is diffuse urothelial thickening within the bilateral renal collecting systems and bilateral ureters. There is inflammatory change within the right upper quadrant surrounding the duodenal bulb. Possible focal ulceration within the anterior wall of the proximal duodenum best seen on image 153. This measures 1 cm. There is also mild thickening within the proximal duodenum. Therefore, these findings are concerning for peptic ulcer disease/impending perforation. No extraluminal gas identified this time. The inflammatory change also surrounds the gallbladder. However, there is no definite gallbladder wall thickening. This may be reactive to the suspected duodenal abnormality rather than an acute cholecystitis. 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 Moderate well-formed stool within the colon. Mild presacral and body wall edema. No evidence for bowel obstruction. Normal appendix. IMPRESSION: 1. Inflammatory change within the right upper quadrant surrounding the thickened proximal duodenum. Possible 1 cm ulceration along the anterior wall of the proximal duodenum. Therefore, findings are concerning for peptic ulcer disease with possible impending perforation. No evidence for extraluminal gas at this time. Endoscopy is recommended for further evaluation. 2. The inflammatory change also a extends to the gallbladder. However, there is no gallbladder wall thickening. Acute cholecystitis would be considered less likely. Clinical correlation recommended. 3. Moderate bilateral hydroureteronephrosis with diffuse urothelial thickening within the renal collecting systems and ureters. The bilateral hydronephrosis favors chronic outlet obstruction. Associated urothelial thickening may represent a superimposed pyelitis/pyelonephritis. Recommend correlation with urinalysis. 4. There is also marked bladder wall thickening and inflammatory change which is decompressed by Persaud catheter. Findings are consistent with a cystitis. 5. Small bilateral pleural effusions with consolidation of the bilateral lower lobes. This may represent atelectasis or pneumonia. 6. Cardiomegaly with pericardial calcifications, unchanged. 7. Diffuse interstitial thickening within the lung bases. This may represent mild pulmonary edema. A. Bilateral nephrolithiasis. 9. Additional findings as described above. Electronically signed by: Zan Rivera M.D. 01/23/2019 12:27 PM Dictated: 01/23/19 1213 Transcribed: 01/23/19 1213 (1) GI bleed GI bleed type/associated pathology: unspecified gastrointestinal hemorrhage type Qualified Code(s): K92.2 - Gastrointestinal hemorrhage, unspecified (2) Anemia Anemia type: unspecified type Qualified Code(s): D64.9 - Anemia, unspecified (3) CKD (chronic kidney disease) Chronic kidney disease stage: unspecified stage Qualified Code(s): N18.9 - Chronic kidney disease, unspecified (4) Altered mental status Altered mental status type: unspecified Qualified Code(s): R41.82 - Altered m ental status, unspecified
[2019-01-23] MEDS ORDERED: PROPOFOL IV EMULSION 10 MG/ML 20 ML VIAL IV ONE (16:51)
[2019-01-23] MEDS ORDERED: LIDOCAINE HCL 2% 2 ML VIAL/AMP(20MG/ML) INFIL ONE (16:51)
[2019-01-23] MEDS ORDERED: SUGAMMADEX SODIUM 200 MG/2 ML VIAL IV ONE (16:54)
--- NOTE | 2019-01-23 17:26 | GI REPORT ---
Patient Name: Katy Castanon Procedure Date: 01/23/2019 4:46 PM Date of : 1930 Admit Type: Inpatient Age: 88 Gender: Male Attending MD: Arden Schneider DO Procedure: Upper GI endoscopy Providers: Arden Schneider DO Referring MD: Torsten Freitas Indications: Melena, Abnormal CT of the GI tract Medicines: Monitored Anesthesia Care, General Anesthesia Complications: No immediate complications. Estimated Blood Loss: Estimated blood loss: none. Procedure: Pre-Anesthesia Assessment: - Prior to the procedure, a History and Physical was performed, and patient medications and allergies were reviewed. The patient's tolerance of previous anesthesia was also reviewed. The risks and benefits of the procedure and the sedation options and risks were discussed with the patient. All questions were answered, and informed consent was obtained. Prior Anticoagulants: The patient has taken Eliquis (apixaban), last dose was day of procedure. ASA Grade Assessment: E - Emergency. After reviewing the risks and benefits, the patient was deemed in satisfactory condition to undergo the procedure. After obtaining informed consent, the endoscope was passed under direct vision. Throughout the procedure, the patient's blood pressure, pulse, and oxygen saturations were monitored continuously. The Endoscope was introduced through the mouth, and advanced to the second part of duodenum. The upper GI endoscopy was accomplished without difficulty. The patient tolerated the procedure well. Findings: The esophagus was normal. The stomach was normal. Four non-bleeding cratered duodenal ulcers with no stigmata of bleeding were found in the duodenal bulb. The largest lesion was 12 mm in largest dimension. Impression: - Normal esophagus. - Normal stomach. - Multiple non-bleeding duodenal ulcers with no stigmata of bleeding. - No specimens collected. Recommendation: - Return patient to ICU for ongoing care. - Clear liquid diet. - Use Protonix (pantoprazole) 40 mg PO BID. Arden Schneider DO 01/23/2019 5:26:22 PM This report has been signed electronically. Note Initiated On: 01/23/2019 4:46 PM Number of Addenda: 0 I attest to the content of the Intraoperative Record and orders documented therein, exceptions below {[id number]}
[2019-01-23] MEDS ORDERED: ePHEDrine sulfate 50 MG/ML SYR ONE (17:51)
--- NOTE | 2019-01-23 17:55 | Anesthesiology Progress Note ---
Date of Service January 23, 2019 Anesthesia Post Procedure Vital Signs Vital Signs: Temp Pulse Pulse Resp BP BP Pulse Ox 01/23/19 17:09 35.7 C L 74 17 104 H 01/23/19 16:44 35.8 C L 74 14 110/68 96 01/23/19 16:29 36.5 C 72 15 91/58 L 96 01/23/19 16:13 36.5 C 77 19 80/56 L 96 01/23/19 15:41 36.5 C 63 18 95/58 L 96 01/23/19 15:30 36.5 C 61 15 95/58 L 96 01/23/19 15:26 36.6 C 57 L 17 103/64 96 01/23/19 15:15 67 17 103/64 97 01/23/19 15:04 72 21 111/49 L 98 01/23/19 15:00 64 17 78/61 L 98 01/23/19 14:45 73 20 109/64 95 01/23/19 14:34 35.3 C L 74 21 121/58 L 95 01/23/19 14:00 71 19 107/61 01/23/19 13:45 34.5 C L 60 18 114/54 L 98 01/23/19 13:15 50 L 16 86/47 L 01/23/19 12:55 62 18 95/43 L 96 01/23/19 12:40 35.0 C L 52 L 16 81/45 L 96 01/23/19 12:30 35.0 C L 65 68 16 82/47 L 82/47 L 97 01/23/19 12:20 34.8 C L 60 18 92/58 L 99 01/23/19 11:00 60 22 101/49 L 98 01/23/19 10:58 64 21 97 01/23/19 10:41 95 01/23/19 10:38 33.8 C L 60 18 94/54 L 95 01/23/19 10:31 60 20 96/69 L 98 Transfer of Care Handoff Completed per policy Notes Mental Status: alert / awake / arousable Patient Amnestic to Procedure: Yes Nausea / Vomiting: adequately controlled Pain: adequately controlled Airway Patency, RR, SpO2: stable & adequate BP & HR: stable & adequate Hydration State: stable & adequate Anesthetic Complications: no major complications apparent and Pt Satisfied with anesthetic care Notes: The patient was intubated without paralytic. The procedure was very brief as Dr. Schneider did not see any active GI bleed. Upon extubation the patient was noted to have a lot of phlegm on the ETT. The patient finished his second unit of PRBC in the OR and was given a unit of FFP. He is now back in the ICU and his vitals are stable. Sign out was given to Dr. Alfaro and Dr. Cordova.
[2019-01-23] MEDS ORDERED: SOD PHOSPHATE/SOD BIPHOSPHATE ENEMA 132 ML BTL PR PRN (17:56)
[2019-01-23] MEDS ORDERED: ACETAMINOPHEN 325 MG TAB PO PRN (17:56)
[2019-01-23] MEDS ORDERED: BISACODYL 10 MG SUPP PR PRN (17:56)
[2019-01-23] MEDS ORDERED: cefTRIAXone SODIUM 1,000 MG in DEXTROSE 5% 50 ML IV SCH (18:00)
[2019-01-23 18:34] LABS: Hematocrit (blood only) 24.6 % (42-52); Hemoglobin 7.5 g/dL (14.0-18.0)
[2019-01-23] MEDS: TAMSULOSIN HCL 0.4 MG CAP PO SCH (20:09)
[2019-01-23] MEDS: DOCUSATE SODIUM 100 MG CAP PO SCH (20:10)
[2019-01-23] MEDS: ATORVASTATIN 40 MG TAB PO SCH (20:10)
[2019-01-23] MEDS ORDERED: PANTOprazole 40 MG in SYRINGE 0 ML IV SCH (21:00)
--- NOTE | 2019-01-23 21:11 | Emergency Department Note ---
Entered by Jona Augustin acting as a scribe for History of Present Illness General Chief complaint: Abnormal Labs/Diagnostic Testing Time Seen by Provider: 01/23/19 10:28 Source: patient History of Present Illness Provider complaint: Abnormal labs Onset (ago): hour(s) (This morning) Location: abdomen Pain Consistency: + constant Associated symptoms: + denies other symptoms (Abdominal pain) and + other (Melena); no chest pain and no shortness of breath The patient is an 88 year old male who presents to the Emergency Room from [facility] due to having abnormal lab work that was done earlier this morning. Per staff at the facility, the patient had a large melanotic stool early this morning so they performed a rectal exam which was heme positive. After the exam they sent him for blood work which showed a hemoglobin of 5.2 so they sent him to the ED. The patient is not currently complaining of any symptoms at this time, including any abdominal pain, chest pain or shortness of breath. The patient is on Xarelto for a history of DVT. He also has baseline dementia per NH reports. Pt can answer simple questions here, is aware of place and person, confused to date/time. No family here. Pt with chronic indwelling morocho. Home Medications Home Medications Medication Instructions Recorded Confirmed Type digoxin 125 mcg PO DAILY #0 tab 01/27/15 01/23/19 History acetaminophen 650 mg PO Q6H PRN #0 tab 05/17/15 01/23/19 History docusate sodium 100 mg PO BID 30 Days #30 cap 05/17/15 01/23/19 History magnesium hydroxide [Milk of 30 ml PO DAILY #0 ml 05/17/15 01/23/19 History Magnesia] sodium phosphates [Fleet Enema] 118 ml LA DAILY PRN #0 btl 05/17/15 01/23/19 History B complex-minerals [Stress B Plus 1 tab PO DAILY 01/23/19 01/23/19 History Zinc] atorvastatin 40 mg PO HS 01/23/19 01/23/19 History bisacodyl 10 mg LA DAILY PRN 01/23/19 01/23/19 History cholecalciferol (vitamin D3) 2,000 unit PO DAILY 01/23/19 01/23/19 History levothyroxine 50 mcg PO DAILY 01/23/19 01/23/19 History multivitamin 1 tab PO DAILY 01/23/19 01/23/19 History potassium chloride 20 meq PO DAILY 01/23/19 01/23/19 History rivaroxaban [Xarelto] 15 mg PO DAILY 01/23/19 01/23/19 History sennosides-docusate sodium 1 tab-cap PO DAILY 01/23/19 01/23/19 History [Senokot-S] tamsulosin 0.4 mg PO HS 01/23/19 01/23/19 History Allergies Allergy/AdvReac Type Severity Reaction Status Date / Time No Known Allergies Allergy Unknown Verified 01/23/19 12:29 Past Med/Surg History Medical History (Updated 01/23/19 @ 21:17 by Krysta Gallardo DO) Altered mental status (Acute) Anemia (Acute) Cardiomegaly CKD (chronic kidney disease) (Acute) GI bleed (Acute) Left acute arterial ischemic stroke, MCA (middle cerebral artery) Pneumonia of both lower lobes Sepsis Family History Other Family history non-contributory Social History Preferred Language: Ivorian Communication Ability: Disoriente Vocal Teacher Required: No Beliefs That Will Affect Care: None Current Living Situation: Long-Term Feels Safe at Home: Declines to Answer Smoking Status: Unknown if ever smoked Hx Substance Use: No Review of Systems See HPI for pertinent positives & negatives. and A total of 10 systems reviewed and were otherwise negative Physical Exam Vital Signs Vital Signs - 24 hr 01/23/19 10:31 01/23/19 10:38 01/23/19 10:41 Temperature 33.8 C L Temperature Source Rectal Pulse Rate 60 60 Pulse Rate [Apical] Respiratory Rate 20 18 Blood Pressure 96/69 L 94/54 L Blood Pressure [Left Arm] Blood Pressure Mean 82 67 Blood Pressure Mean [Left Arm] Blood Pressure Position Pulse Oximetry 98 95 95 Oxygen Delivery Method Room Air Room Air Sepsis Recent Fever Within 48 Hours No Sepsis New/Unexplained Change in Mental Status No Sepsis Action Taken by Nursing No Action Required 01/23/19 10:58 01/23/19 11:00 01/23/19 12:20 Temperature 34.8 C L Temperature Source Oral Pulse Rate 64 60 60 Pulse Rate [Apical] Respiratory Rate 21 22 18 Blood Pressure 101/49 L 92/58 L Blood Pressure [Left Arm] Blood Pressure Mean 67 69 Blood Pressure Mean [Left Arm] Blood Pressure Position Sitting Pulse Oximetry 97 98 99 Oxygen Delivery Method Sepsis Recent Fever Within 48 Hours Sepsis New/Unexplained Change in Mental Status Sepsis Action Taken by Nursing 01/23/19 12:30 01/23/19 12:40 01/23/19 12:55 Temperature 35.0 C L 35.0 C L Temperature Source Rectal Oral Pulse Rate 65 52 L 62 Pulse Rate [Apical] 68 Respiratory Rate 16 16 18 Blood Pressure 82/47 L 81/45 L 95/43 L Blood Pressure [Left Arm] 82/47 L Blood Pressure Mean 58 57 60 Blood Pressure Mean [Left Arm] 58 Blood Pressure Position Pulse Oximetry 97 96 96 Oxygen Delivery Method Sepsis Recent Fever Within 48 Hours Sepsis New/Unexplained Change in Mental Status Sepsis Action Taken by Nursing 01/23/19 13:15 Temperature Temperature Source Pulse Rate 50 L Pulse Rate [Apical] Respiratory Rate 16 Blood Pressure 86/47 L Blood Pressure [Left Arm] Blood Pressure Mean 60 Blood Pressure Mean [Left Arm] Blood Pressure Position Pulse Oximetry Oxygen Delivery Method Sepsis Recent Fever Within 48 Hours Sepsis New/Unexplained Change in Mental Status Sepsis Action Taken by Nursing GENERAL: alert, ill appearing, well nourished, no distress, non-toxic, pleasantly confused. EYE EXAM: normal conjunctiva, PERRL and EOM's grossly intact OROPHARYNX: no exudate, no erythema, lips, buccal mucosa, and tongue normal and mucous membranes are moist NECK: supple, no nuchal rigidity, no adenopathy, non-tender LUNGS: Clear to auscultation. Normal chest wall mechanics. Decreased BS b/l. No w/r/r. HEART: no murmurs, S1 normal and S2 normal ABDOMEN: abdomen soft, non-tender, normo-active bowel sounds, no masses, no rebound or guarding. BACK: Back is symmetrical on inspection and there is no deformity, no midline tenderness, no CVA tenderness. SKIN: no rashes and no bruising UPPER EXTREMITIES: upper extremities are grossly normal. Nml pulses b/l. LOWER EXTREMITIES: No pitting edema. Nml pulses b/l. No petechiae. NEURO EXAM: Normal sensorium, cranial nerves II-XII grossly intact, normal speech, no gross weakness of arms, no gross weakness of legs. Course Course 1029: Past medical records reviewed. The patient was evaluated in room A12B by the resident Dr. Perez, and a complete history and physical examination were performed. I then performed my own assessment of the patient. 1108: I called the patient's brother who is his POA and left a message on his phone. 1117: I reassessed the patient and he is denying any pain. He also denied any history of peptic ulcer disease or GI bleeding. He also has never had a blood transfusion. 1210: The patient's POA has yet to return my call. The patient is in agreement with the blood transfusion. He was unable to sign the consent but gave verbal consent. 1301: I spoke to Dr. Rhiannon Freitas - [facility] Hospitalist about the patient's c ase. He is going to accept the patient for further evaluation. 1303: I spoke to the patient's brother who is also his POA to inform him on the situation and the plan of treatment. The POA is agreeable with the plan. He informed me that as far as he is aware the patient does not have dementia. The brother notes he is not aware of any patient history of GI bleeds or objections to blood transfusion. He also said that he does not have any advanced directive nor have they ever spoken about a end of life wishes. 1309: I spoke to Dr. Wyatt MCNEIL about the patient's case. He agreed to be on consult with the patient. 1312: I spoke to Dr. Eckert - Hematology about the patient's case. She stated t hat whether or not the patient is able to receive K centra depends on his last dose of Xarelto. 1320: I updated Dr. Rhiannon Freitas on the conversations I had with Dr. Schneider and Dr. Eckert. We are also contacting the residential to confirm she had his morning dose of Xarelto. 1337: I spoke to Dr. Rhiannon Freitas and he has confirmed that the patient did receive his morning dose of Xarelto. 1359: I spoke to Dr. Cordova, ICU resident working with Dr. Alfaro at bedside to update him on the patient's case and the work up done thus far. Screen Printing Machine Loader Unloader is coming to see the patient also. 1400: I called back Dr. Eckert to inform her that the patient did receive his Xarelto. She is going to order to the K centra. 1412: I reevaluated the patient and his appearance seems to have improved since the starting the blood transfusion. Consultations Consultation #1: I spoke to Dr. Rhiannon Freitas - [facility] Hospitalist about the patient's case. He is going to accept the patient for further evaluation. Time: 13:01 Consultation #2: I spoke to Dr. Wyatt MCNEIL about the patient's case. He agreed to be on consult with the patient. Time: 13:09 Consultation #3: I spoke to Dr. Eckert - Hematology about the patient's case. She stated that whether or not the patient is able to receive K centra depends on his last dose of Xarelto. Time: 13:12 Additional Consultation(s): 1609: I spoke to Dr. Cordova, ICU resident at bedside to update him on the patient's case and the work up done thus far. 1400: I called back Dr. Eckert to inform her that the patient did receive his Xarelto. She is going to order to the K centra. Administered Medications Atorvastatin Calcium (Lipitor) 40 mg PO HS DENIS Stop: 02/22/19 20:59 Last Admin: 01/23/19 20:10 Dose: 40 mg Documented by: [id number] Docusate Sodium (Colace) 100 mg PO BID DENIS Stop: 02/22/19 20:59 Last Admin: 01/23/19 20:10 Dose: Not Given Documented by: [id number] Sodium Chloride (Nss 1000ml) 1,000 mls @ 70 mls/hr IV .[id number] [facility] Stop: 02/22/19 13:14 Last Admin: 01/23/19 15:10 Dose: 70 mls/hr Documented by: [id number] Ceftriaxone Sodium 1,000 mg/ (Dextrose) 50 mls @ 100 mls/hr IV Q24H DENIS; Protocol Stop: 01/28/19 17:59 Last Infusion: 01/23/19 19:13 Dose: 0 mls/hr Documented by: [id number] Admin: 01/23/19 18:27 Dose: 100 mls/hr Documented by: [id number] Pantoprazole Sodium 40 mg/ (Syringe) 10 mls @ 5 mls/min IV BID@0900,2100 DENIS Stop: 02/22/19 20:59 Last Admin: 01/23/19 20:10 Dose: 5 mls/min Documented by: [id number] Ioversol (Optiray 320 125ml) 94 ml IV ONCE PRN PRN Reason: Interaction Checking Stop: 01/27/19 11:45 Last Admin: 01/23/19 11:47 Dose: 94 ml Documented by: [id number] Tamsulosin HCl (Flomax) 0.4 mg PO HS DENIS Stop: 02/22/19 20:59 Last Admin: 01/23/19 20:09 Dose: 0.4 mg Documented by: [id number] Discontinued Medications Famotidine (Pepcid 20mg Iv Push) 20 mg IV NOW STA Stop: 01/23/19 13:39 Last Admin: 01/23/19 13:57 Dose: 20 mg Documented by: [id number] Sodium Chloride (Nss) 250 mls @ 15 mls/hr IV .[id number] PRN PRN Reason: For Transfusion Stop: 02/22/19 10:52 Last Infusion: 01/23/19 17:58 Dose: 0 mls/hr Documented by: [id number] Admin: 01/23/19 12:20 Dose: 15 mls/hr Documented by: [id number] Sodium Chloride (Nss) 500 mls @ 999 mls/hr IV .Q31M ONE Stop: 01/23/19 11:23 Last Infusion: 01/23/19 13:04 Dose: 0 mls/hr Documented by: [id number] Admin: 01/23/19 11:12 Dose: 999 mls/hr Documented by: [id number] Sodium Chloride (Nss) 500 mls @ 999 mls/hr IV .Q31M ONE Stop: 01/23/19 11:58 Last Infusion: 01/23/19 13:04 Dose: 0 mls/hr Documented by: [id number] Admin: 01/23/19 12:19 Dose: 999 mls/hr Documented by: [id number] Pantoprazole Sodium 40 mg/ (Syringe) 10 mls @ 5 mls/min IV TODAY@1200 ONE Stop: 01/23/19 12:01 Last Admin: 01/23/19 11:58 Dose: 5 mls/min Documented by: [id number] Pantoprazole Sodium 40 mg/ (Dextrose) 100 mls @ 20 mls/hr IV Q5H DENIS Stop: 02/22/19 12:59 Last Infusion: 01/23/19 17:03 Dose: 20 mls/hr Documented by: [id number] Admin: 01/23/19 12:57 Dose: 20 mls/hr Documented by: [id number] Pantoprazole Sodium 40 mg/ (Syringe) 10 mls @ 5 mls/min IV TODAY@1315 ONE Stop: 01/23/19 13:16 Last Admin: 01/23/19 13:14 Dose: 5 mls/min Documented by: [id number] Prothrombin Complex Concent ( (Human) 2,000 units/ Syringe) 80 mls @ 10 mls/min IV TODAY@1400 DENIS; Protocol Stop: 01/23/19 18:00 Last Admin: 01/23/19 13:57 Dose: 10 mls/min Documented by: [id number] Metoclopramide HCl 20 mg/ (Sodium Chloride) 54 mls @ 150 mls/hr IV NOW ONE Stop: 01/23/19 15:21 Last Infusion: 01/23/19 15:34 Dose: 0 mls/hr Documented by: [id number] Admin: 01/23/19 15:10 Dose: 150 mls/hr Documented by: [id number] Critical Care Time Critical Care Time: Yes Total Critical Care Time: 120 I have personally spent greater than 120 minutes of critical care time in the direct management of this patient. This includes bedside care, interpretation of diagnostic studies, and testing, discussion with consultants, patient, and family members, and other required patient management activities. This 120 minutes is in excess of all separately billable procedures. Medical Decision Making Differential Diagnosis Differential Diagnosis includes but is not limited to dehydration, stroke, anemia, hypoglycemia, hyponatremia, hypernatremia, urinary tract infection, pneumonia, bronchitis, sepsis, gastroenteritis, additional abdominal pathology, metabolic abnormalities and infections. Medical Records Attestation: I reviewed the patient's medical records. Home Medications Current Medication List: was personally reviewed by me Laboratory Data Attestation: I reviewed the patient's lab results. Result diagrams: 01/23/19 18:15 01/23/19 10:52 Lab Results 01/23/19 01/23/19 01/23/19 Range/Units 10:52 10:52 10:52 WBC 9.06 (4.8-10.8) K/uL RBC 1.87 L (4.7-6.1) M/uL Hgb 5.7 L* (14.0-18.0) g/dL Hct 19.5 L* (42-52) % MCV 104.3 H (80-100) fL MCH 30.5 (25-34) pg MCHC 29.2 L (32-36) g/dL RDW Std Deviation 80.7 H (36.4-46.3) fL RDW Coeff of Elaine 21.8 H (11.5-14.5) % Plt Count 208 (130-400) K/uL MPV 10.5 H (7.4-10.4) fL Immature Gran % (Auto) 0.3 % Neut % (Auto) 81.0 % Lymph % (Auto) 9.8 % Hernando % (Auto) 7.9 % Eos % (Auto) 0.9 % Baso % (Auto) 0.1 % Immature Gran # (Auto) 0.03 H (0.00-0.02) K/uL Neut # (Auto) 7.33 H (1.4-6.5) K/uL Lymph # (Auto) 0.89 L (1.2-3.4) K/uL Hernando # (Auto) 0.72 H (0.11-0.59) K/uL Eos # (Auto) 0.08 (0-0.5) K/uL Baso # (Auto) 0.01 (0-0.2) K/uL Anisocytosis Present Echinocytes 1+ PT 11.3 (9.0-12.0) Seconds INR 1.1 (0.9-1.1) Sodium 145 (136-145) mmol/L Potassium 4.7 (3.5-5.1) mmol/L Chloride 115 H (98-107) mmol/L Carbon Dioxide 25 (21-32) mmol/L Anion Gap 6.0 (3-11) BUN 57 H (7-18) mg/dl Creatinine 1.52 H (0.6-1.4) mg/dl Est Cr Clr Drug Dosing 33.8 ml/min Est GFR ( Amer) 47.4 Est GFR (Non-Af Amer) 40.9 BUN/Creatinine Ratio 37.3 H (10-20) Glucose 91 (70-99) mg/dl Lactate (0.4-2.0) mmol/L Calcium 8.8 (8.5-10.1) mg/dl Magnesium 2.9 H (1.8-2.4) mg/dl Total Bilirubin 0.3 (0.2-1) mg/dl AST 34 (15-37) U/L ALT 37 (12-78) U/L Alkaline Phosphatase 111 (45-117) U/L Troponin I < 0.015 (0-0.045) ng/ml NT-Pro-B Natriuret Pep 1218 (0-1800) pg/ml Total Protein 6.9 (6.4-8.2) gm/dl Albumin 2.0 L (3.4-5.0) gm/dl Globulin 4.9 H (2.5-4.0) gm/dl Albumin/Globulin Ratio 0.4 L (0.9-2) Lipase 119 (73-393) U/L Blood Type Antibody Screen Crossmatch 01/23/19 01/23/19 Range/Units 10:52 11:35 WBC (4.8-10.8) K/uL RBC (4.7-6.1) M/uL Hgb (14.0-18.0) g/dL Hct (42-52) % MCV (80-100) fL MCH (25-34) pg MCHC (32-36) g/dL RDW Std Deviation (36.4-46.3) fL RDW Coeff of Elaine (11.5-14.5) % Plt Count (130-400) K/uL MPV (7.4-10.4) fL Immature Gran % (Auto) % Neut % (Auto) % Lymph % (Auto) % Hernando % (Auto) % Eos % (Auto) % Baso % (Auto) % Immature Gran # (Auto) (0.00-0.02) K/uL Neut # (Auto) (1.4-6.5) K/uL Lymph # (Auto) (1.2-3.4) K/uL Hernando # (Auto) (0.11-0.59) K/uL Eos # (Auto) (0-0.5) K/uL Baso # (Auto) (0-0.2) K/uL Anisocytosis Echinocytes PT (9.0-12.0) Seconds INR (0.9-1.1) Sodium (136-145) mmol/L Potassium (3.5-5.1) mmol/L Chloride (98-107) mmol/L Carbon Dioxide (21-32) mmol/L Anion Gap (3-11) BUN (7-18) mg/dl Creatinine (0.6-1.4) mg/dl Est Cr Clr Drug Dosing ml/min Est GFR ( Amer) Est GFR (Non-Af Amer) BUN/Creatinine Ratio (10-20) Glucose (70-99) mg/dl Lactate 1.8 (0.4-2.0) mmol/L Calcium (8.5-10.1) mg/dl Magnesium (1.8-2.4) mg/dl Total Bilirubin (0.2-1) mg/dl AST (15-37) U/L ALT (12-78) U/L Alkaline Phosphatase (45-117) U/L Troponin I (0-0.045) ng/ml NT-Pro-B Natriuret Pep (0-1800) pg/ml Total Protein (6.4-8.2) gm/dl Albumin (3.4-5.0) gm/dl Globulin (2.5-4.0) gm/dl Albumin/Globulin Ratio (0.9-2) Lipase (73-393) U/L Blood Type A Positive Antibody Screen NEGATIVE Crossmatch See Detail Imaging Data Radiologist's Impression: Radiology results as stated below per my review and the radiologist's interpretation: ABDOMEN AND PELVIS CT WITH IV CONTRAST CT DOSE: 281.04 mGy.cm HISTORY: GI bleed. TECHNIQUE: Multiaxial CT images of the abdomen and pelvis were performed following the use of intravenous contrast. A dose lowering technique was utilized adhering to the principles of ALARA. COMPARISON STUDY: Abdomen and pelvis CT 04/02/2015. FINDINGS: Small bilateral pleural effusions. Consolidation within the bilateral lower lobes. Interstitial thickening at the lung bases is noted. Dense pericardial calcifications. No pneumoperitoneum. No pneumatosis. There is a right total hip arthroplasty. The heart is enlarged. No hepatic or splenic masses. The adrenal glands and pancreas are unremarkable. An IVC filter is noted. No retroperitoneal lymphadenopathy. There is a cluster of stones within the lower pole of the left kidney. There are 2 right renal calculi with the largest in the lower pole measuring 1 cm. Mild bilateral perinephric fat stranding. There is moderate bilateral hydroureteronephrosis to the level of the ureterovesical junctions. No definite obstructing ureteral calculi identified. Of note, the distal ureters and bladder are partially obscured by metallic artif act. There is a Morocho catheter within the bladder lumen. The bladder is markedly thickening and contains a few small bladder diverticula. There are few stones within the bladder. There is inflammatory change surrounding the bladder. There is diffuse urothelial thickening within the bilateral renal collecting systems and bilateral ureters. There is inflammatory change within the right upper quadrant surrounding the duodenal bulb. Possible focal ulceration within the anterior wall of the proximal duodenum best seen on image 153. This measures 1 cm. There is also mild thickening within the proximal duodenum. Therefore, these findings are concerning for peptic ulcer disease/impending perforation. No extraluminal gas identified this time. The inflammatory change also surrounds the gallbladder. However, there is no definite gallbladder wall thickening. This may be reactive to the suspected duodenal abnormality rather than an acute cholecystitis. 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 Moderate well-formed stool within the colon. Mild presacral and body wall edema. No evidence for bowel obstruction. Normal appendix. IMPRESSION: 1. Inflammatory change within the right upper quadrant surrounding the thickened proximal duodenum. Possible 1 cm ulceration along the anterior wall of the proximal duodenum. Therefore, findings are concerning for peptic ulcer disease with possible impending perforation. No evidence for extraluminal gas at this time. Endoscopy is recommended for further evaluation. 2. The inflammatory change also a extends to the gallbladder. However, there is no gallbladder wall thickening. Acute cholecystitis would be considered less likely. Clinical correlation recommended. 3. Moderate bilateral hydroureteronephrosis with diffuse urothelial thickening within the renal collecting systems and ureters. The bilateral hydronephrosis f avors chronic outlet obstruction. Associated urothelial thickening may represent a superimposed pyelitis/pyelonephritis. Recommend correlation with urinalysis. 4. There is also marked bladder wall thickening and inflammatory change which is decompressed by Morocho catheter. Findings are consistent with a cystitis. 5. Small bilateral pleural effusions with consolidation of the bilateral lower lobes. This may represent atelectasis or pneumonia. 6. Cardiomegaly with pericardial calcifications, unchanged. 7. Diffuse interstitial thickening within the lung bases. This may represent mild pulmonary edema. A. Bilateral nephrolithiasis. 9. Additional findings as described above. Electronically signed by: Zan Rivera M.D. 01/23/2019 12:27 PM ECG Data Attestation: I personally reviewed and interpreted this ECG as follows: Indication: + other (Abnormal labs) Rate (beats per minute): 65 Rhythm: + atrial fibrillation ECG Intervals/blocks: + Normal QRS and + Normal QT ECG ST segments: + T-wave inversions (V3, V4, V5) Comparison ECG Date: from (05/19/15) Change: the following changes noted (TWIs are new) Blood Pressure Blood Pressure Findings: Low blood pressure Blood Pressure Disposition: further management by hospitalist YUMIKO Narrative Pt presenting after melontic stool at CT and outpt labs with profound anemia. No reported or previously documented hx of GI bleed or PUD. Pt with BP's mostly 90's/50's while in the ER. Was carefully given small fluid boluses and response monitored while awaiting blood products. On review of CT information and EMR, no prior echo to know pt's cardiac status. No tachycardia likely due to digoxin. I attempted to contact pt's brother, [email or web address], due to concern for pt's level of mentation. Pt did give verbal consent for blood. CT records state pt is full code. After discussion with brother, he was in agreement with transfusion and doesn't know of any prior advanced directive. Pt full code at this time. Pt initially hypothermic, blood and urine cultures sent as a precaution, however I feel sepsis is less likely. Lactate reassuring likely not ischemia or sepsis. CKD previously documented. Cr here 1.5. Elevated BUN likely from CKD and superimposed GI bleed. Blood started and while awaiting GI call back I discussed the case with hospitalist. After CT papers revealed pt had possibly been given his morning dose of Xarelto, I contacted Dr. Eckert and hospitalist called CT to confirm. Eventually due to this KCentra was added. Once additional blood products added BP began to slowly improve. Protonix drip was added to initial bolus. Pt continued to have no complaints. Pt transported to ICU. Family made of critical and unstable nature of patient during initial phone call. Impression & Plan Hypotension, GI bleed, Anemia, AMS (altered mental status), CKD (chronic kidney disease), Hypovolemic shock, Duodenal ulcer, Hydroureteronephrosis, Morocho catheter in place Discharge Plan Visit Data *Final* Discharge Date/Time: 01/23/19 13:41 Chief Complaint: Abnormal Labs/Diagnostic Testing ED Provider: Krysta Gallardo ED Midlevel Provider: Ana Perez Discharge Problem: Hypotension, GI bleed, Anemia, AMS (altered mental status), CKD (chronic kidney disease), Hypovolemic shock, Duodenal ulcer, Hydroureteronephrosis, Morocho catheter in place Patient Disposition: Admitted As Inpatient Discharge Instructions Interventions: ED Discharge Assessment Last Done: 01/23/19 13:41 Discharge Problem: Hypotension Qualifiers: Hypotension type: unspecified hypotension type Qualified Code(s): I95.9 - H ypotension, unspecified GI bleed Qualifiers: GI bleed type/associated pathology: unspecified gastrointestinal hemorrhage type Qualified Code(s): K92.2 - Gastrointestinal hemorrhage, unspecified Anemia Qualifiers: Anemia type: unspecified type Qualified Code(s): D64.9 - Anemia, unspecified AMS (altered mental status) Qualifiers: Altered mental status type: unspecified Qualified Code(s): R41.82 - Altered mental status, unspecified CKD (chronic kidney disease) Qualifiers: Chronic kidney disease stage: unspecified stage Qualified Code(s): N18.9 - Chronic kidney disease, unspecified The scribe's documentation has been prepared under my direction and personally reviewed by me in its entirety. I confirm that the note above accurately reflects all work, treatment, procedures, and medical decision making performed by me.
[2019-01-24 00:43] LABS: Hematocrit (blood only) 28.1 % (42-52); Hemoglobin 8.9 g/dL (14.0-18.0)
[2019-01-24 00:59] LABS: BUN Creatinine Ratio 35.3 (10-20); Calcium 7.9 mg/dl (8.5-10.1); Creatinine Clr Calc Pharmacy 37.2 ml/min; Est GFR (African American) 53.3; Potassium 4.3 mmol/L (3.5-5.1)
[2019-01-24] MEDS ORDERED: LACTATED RINGER'S 1,000 ML IV SCH (01:15)
[2019-01-24 04:23] LABS: Basophils # (auto) 0.02 K/uL (0-0.2); Basophils % (auto) 0.4 %; Eosinophils # (auto) 0.05 K/uL (0-0.5); Hematocrit (blood only) 26.6 % (42-52); Hemoglobin 8.4 g/dL (14.0-18.0); Immature Granulocytes # (auto) 0.01 K/uL (0.00-0.02); Immature Granulocytes % (auto) 0.2 %; Lymphocytes # (auto) 0.75 K/uL (1.2-3.4); Lymphocytes % (auto) 15.5 %; Mean Corpuscular Hgb Conc 31.6 g/dL (32-36); Mean Platelet Volume 10.2 fL (7.4-10.4); Monocytes % (auto) 8.3 %; Neutrophils # (auto) 3.61 K/uL (1.4-6.5); Neutrophils % (auto) 74.6 %; Nucleated RBC # (auto) 0.04 K/uL (0-0); Nucleated RBC % (auto) 0.7 %; Platelet Count 153 K/uL (130-400); RDW Coefficient of Variation 22.2 % (11.5-14.5); RDW Standard Deviation 72.7 fL (36.4-46.3); White Blood Count 4.84 K/uL (4.8-10.8)
[2019-01-24 04:34] LABS: INR 1.1 (0.9-1.1); Partial Thromboplastin Ratio 1.1; Partial Thromboplastin Time 30.5 Seconds (21.0-31.0); Prothrombin Time 11.4 Seconds (9.0-12.0)
[2019-01-24 04:44] LABS: BUN Creatinine Ratio 34.3 (10-20); Calcium 7.9 mg/dl (8.5-10.1); Creatinine Clr Calc Pharmacy 35.6 ml/min; Est GFR (African American) 50.6; Est GFR (Non-African American) 43.7; Magnesium 2.6 mg/dl (1.8-2.4); Potassium 4.4 mmol/L (3.5-5.1)
[2019-01-24 04:57] LABS: Acanthocytes 1+; Anisocytosis Present
[2019-01-24] MEDS: LEVOTHYROXINE SODIUM 50 MCG TABLET PO SCH (05:56)
--- NOTE | 2019-01-24 06:55 | Critical Care Progress Note ---
Date of Service January 24, 2019 Assessment & Plan (1) Acute blood loss anemia: Reason Critically Ill: Patient is an 88 y/o male with hx of Afib on Xarelto who presented from SNF with acute blood loss anemia (outpatient lab of 5.2) with reports of melena this AM. Neuro: Oriented to person confused to place and time Cardiac/Vascular: Hx of atrial Fibrillation on Xarelto - unfortunately reported to receive Xarelto in SNF prior to ED transfer per staff currently hemodynamically stable; no active bleeding; Pulse low 60s 110s/44-50s Pulse in 49-5 0s and is on Digoxin at home; Digoxin level was ordered by hospitalist on admission and was 1.9 WNL Calcified pericardium viewed on CT Abd/Pelvis, along with Cardiomegaly Monitor Hemodynamics with pressure support with IVFs. Trop x1 was negative in ED BNP drawn in ED was WNL Hold Digoxin and hold atorvastatin Pulm: Not requiring supplemental O2 On CT Abd/Pelvis; Small bilateral pleural effusions with consolidation of the bilateral lower lobes. This may represent atelectasis or pneumonia. was found to have productive sputum on extubation with concern for lower respiratory tract infection; was started on Rocephin for lung and also providing urinary coverage for presumed UTI. Providing Chest percussion therapy BID GI: Presumed chronic upper GI bleed with reported Melena; on Xarelto; denies prior hx of GI bleed. CT Abd/Pelvis with IV contrast performed in ED; noted to have 1cm ulceration of duodenum - most likely source of GI bleed. - Inflammatory change within the right upper quadrant surrounding the thickened proximal duodenum. Possible 1 cm ulceration along the anterior wall of the proximal duodenum. Therefore, findings are concerning for peptic ulcer disease with possible impending perforation. No evidence for extraluminal gas at this time. Endoscopy is recommended for further evaluation. - The inflammatory change also a extends to the gallbladder. However, there is no gallbladder wall thickening. Acute cholecystitis would be considered less likely. Clinical correlation recommended. GI consulted and made aware; will consider General Surgery consult based on EGD findings. Diet: Clear liquid diet PPI Pantoprazole drip started in ED, will continue; also received Pepcid 20mg IV push ordered by hospitalist on admission. Lipase was 119 WNL on 01/23. EGD showed: 4 non-bleeding cratered duodenal ulcers without stigmata for bleeding in the duodenal bulb; with largest 12mm. GI recommends Protonix 40mg PO BID; order placed to stop IV and start PO this AM. Renal/Lytes: Sodium elevated 149; potassium was WNL Creatinine was 1.44 which appears to be at baseline from prior reported values in EMR Calcium was 7.9, but with correction is 9.5 Mag elevated at 2.6 Did receive 1.5L NSS Bolus in ED; along with NSS maintenance fluids yesterday; most likely cause of hypercholeremia IVF LR @ 80mL switch by overnight etam BUN elevated consistent with GI bleed, stable from yesterday : Chronic indwelling morocho cath Urine cultures drawn in ED - pending Here in ICU urine drawn for culture grossly abornmal in appearance and suspect UTI Review of old EMR showed positive UTI culture from 12/26/18 for Proteus mirabili >100,000 CFU; which was resistent to Amp; unasyn; intermediate to Cefazolin; without any other Rx resistance. Started on Rocephin last night as was sensitive and also want to provide URI coverage. CT Abd/Pelvis w/IV contrast during ED workup reported the following: - Moderate bilateral hydroureteronephrosis with diffuse urothelial thickening within the renal collecting systems and ureters. The bilateral hydronephrosis favors chronic outlet obstruction. Associated urothelial thickening may repres ent a superimposed pyelitis/pyelonephritis. Recommend correlation with urinalysis. - There is also marked bladder wall thickening and inflammatory change which is decompressed by Morocho catheter. Findings are consistent with a cystitis. Endo: Hx of Hypothyroid; med list reports Synthroid 50mcg daily; Had TSH drawn this AM at [facility] - which was elevated 7.280; Free T4 was WNL 1.07 No reported or documented hx of DM ICU hyperglycemia protocol ordered Heme: Acute blood loss anemia from GI Bleed - melena; most likely Upper GI from Hgb level this AM 5.2 at [facility]; then was 5.7 in ED- review of EMR shows prior values of 12/15/18 of 9.4; 12/26/18 of 8.1; suspect slow chronic GI bleed; prior values were 10.7-11 in 2018 Platelets WNL 208; Fibrinogen level was elevated 456, no current signs of DIC; no other external sources of bleeding outside of reproted melena; no melena here in ICU PT was 11.3; INR 1.1 WNL from ED workup 2 units of pRBCs were ordered in ED and given; KCentra was ordered and given in ED FFP was ordered in ED and given x1. Gave another unit last night s/p EGD after Hgb resulted @ 7.5; was 8.9 s/p transfusion; this AM 8.4. ID: Blood cultures drawn - pending Urine cultures drawn - pending Chronic Indwelling morocho catheter Concerns noted by anesthesia team for URI from significant productive sputum on extuabation. Will cover both suspected UTI and URI with Rocephin 1gm q24h. Lines: 14G peripheral IVs DVT ppx: SCDs; chemical contraindicated in GI bleed Resuscitation Status: Full Code; did discuss with patient; POA brother is estranged and has not talked about code status wishes. (2) GI bleed: (3) Hypovolemic shock: (4) Atrial fibrillation: (5) Duodenal ulcer: (6) Encephalopathy acute: Supervising Physician Co-Signing Physician Notes Seen and examined. No acute events overnight ED with multiple duodenal ulcers noted. No active bleeding. Holding anticoagulation. Apparently there were copious oral secretions noted after extubation from his EGD Impression: 88-year-old male with likely upper GI bleed. Recommendations: 1. Upper GI bleed: Due to duodenal ulcer with anticoagulation for atrial fibrillation. Holding anticoagulation for now. Hemoglobin and hematocrit of been stable. Continue to trend. Protonix per GI. Follow-up endoscopy per GI. Unclear diet. Additional diet per GI. 2. Mild acute kidney injury: Suspect prerenal. Slightly better this morning. Continue to trend. 3. Coagulopathy: The patient was maintained on Xarelto for atrial fibrillation. He received Kcentra in the emergency room hold all anticoagulation for now. DV T prophylaxis will be applied with SCDs only. Will need to reevaluate long-term appropriateness for anticoagulation in this patient prior to discharge 4. Protein calorie malnutrition with cachexia: Suspect secondary to poor p.o. intake. Continue to follow for now. Dietary consultation may be considered once the patient can take oral intake. 5. History of atrial fibrillation: Appears rate controlled currently. To need to follow for now. 6. Questionable urinary tract infection: The patient has a pending urine culture. Currently on Rocephin. There was concern about potential pneumonia however the patient has a normal white blood cell count and is afebrile. We will check a chest x-ray Okay to transfer to the floor under the care of the hospitalist. Will sign off when he leaves the ICU. Subjective No acute events or signs of bleed reported overnight. As mentioned in addendum, was found to have productive sputum on extubation with concern for lower respiratory tract infection; also his urine was grossly abnormal with concern for UTI and review of EMR showing positive UTI culture from 12/26 for Proteus mirabili >100,000 CFU; which was resistent to Amp; unasyn; intermediate to Cefazolin; without any other Rx resistance and was started on Rocephin. EGD was sigificant for 4 non-bleeding cratered duodenal ulcers without stigmata for bleeding in the duodenal bulb; with largest 12mm. History limited by dementia; no complaints this morning of abdominal pain, shortness of breath, chest pain, nausea, vomiting, diarrhea. Physical Exam Constitutional: + thin, + frail appearing, cooperative and comfortable Eyes: PERRL and EOM intact bilaterally ENMT: Nose: no external nose abnormality and no epistaxis Neck: normal visual inspection and trachea midline Respiratory: no respiratory distress and does not use accessory muscles Auscultation: lungs clear to auscultation bilaterally Cardiovascular: Rate/Rhythm: regular rate and + irregularly irregular Gastrointestinal (Abdomen): Inspection/Auscultation: abdomen normal to inspection Percussion/Palpation: abdomen nontender, no guarding and abdomen not rigid Musculoskeletal: Head/Neck/Chest: normocephalic and head atraumatic Skin: no rashes, warm and dry Neurologic: moves all extremities and awake Psychiatric: Orientation: alert and oriented to person; + not oriented to place and + not oriented to time Results & Data Vital Signs (Past 12 Hours) Vital Signs Temp Pulse Pulse Resp BP BP Pulse Ox 01/24/19 06:00 58 L 17 122/59 L 97 01/24/19 05:00 60 15 99/55 L 96 01/24/19 04:00 36.5 C 55 L 14 95/50 L 97 01/24/19 03:00 55 L 13 100/61 97 01/24/19 02:00 52 L 14 118/51 L 96 01/24/19 01:00 60 14 93/56 L 98 01/24/19 00:00 36.4 C L 64 13 105/63 98 01/23/19 23:38 36.4 C L 65 17 98 01/23/19 23:19 73 12 124/64 01/23/19 23:00 52 L 12 114/87 98 01/23/19 22:19 50 L 12 118/66 98 01/23/19 22:00 56 L 14 98/61 L 99 01/23/19 21:21 59 L 14 122/67 98 01/23/19 21:19 63 13 99/55 L 98 01/23/19 20:49 52 L 13 114/67 99 01/23/19 20:34 36.4 C L 65 16 95/56 L 98 01/23/19 20:18 36.5 C 67 17 115/67 98 01/23/19 19:00 70 16 118/57 L 96 Laboratory Results Laboratory Results - last 24 hr 01/23/19 01/23/19 01/23/19 10:52 10:52 10:52 WBC 9.06 RBC 1.87 L Hgb 5.7 L* Hct 19.5 L* MCV 104.3 H MCH 30.5 MCHC 29.2 L RDW Std Deviation 80.7 H RDW Coeff of Elaine 21.8 H Plt Count 208 MPV 10.5 H Immature Gran % (Auto) 0.3 Neut % (Auto) 81.0 Lymph % (Auto) 9.8 [place] % (Auto) 7.9 Eos % (Auto) 0.9 Baso % (Auto) 0.1 Immature Gran # (Auto) 0.03 H Neut # (Auto) 7.33 H Lymph # (Auto) 0.89 L [place] # (Auto) 0.72 H Eos # (Auto) 0.08 Baso # (Auto) 0.01 Absolute Nucleated RBC Nucleated RBC % (auto) Anisocytosis Present Echinocytes 1+ Acanthocytes (Spur) PT 11.3 INR 1.1 APTT PTT Ratio Fibrinogen Sodium 145 Potassium 4.7 Chloride 115 H Carbon Dioxide 25 Anion Gap 6.0 BUN 57 H Creatinine 1.52 H Est Cr Clr Drug Dosing 33.8 Est GFR ( Amer) 47.4 Est GFR (Non-Af Amer) 40.9 BUN/Creatinine Ratio 37.3 H Glucose 91 POC Glucose Lactate Calcium 8.8 Ionized Calcium Magnesium 2.9 H Total Bilirubin 0.3 AST 34 ALT 37 Alkaline Phosphatase 111 Troponin I < 0.015 NT-Pro-B Natriuret Pep 1218 Total Protein 6.9 Albumin 2.0 L Globulin 4.9 H Albumin/Globulin Ratio 0.4 L Lipase 119 Nasal Screen MRSA (PCR) Digoxin Blood Type Antibody Screen Crossmatch 01/23/19 01/23/19 01/23/19 10:52 11:35 13:45 WBC RBC Hgb Hct MCV MCH MCHC RDW Std Deviation RDW Coeff of Elaine Plt Count MPV Immature Gran % (Auto) Neut % (Auto) Lymph % (Auto) [place] % (Auto) Eos % (Auto) Baso % (Auto) Immature Gran # (Auto) Neut # (Auto) Lymph # (Auto) [place] # (Auto) Eos # (Auto) Baso # (Auto) Absolute Nucleated RBC Nucleated RBC % (auto) Anisocytosis Echinocytes Acanthocytes (Spur) PT INR APTT PTT Ratio Fibrinogen Sodium Potassium Chloride Carbon Dioxide Anion Gap BUN Creatinine Est Cr Clr Drug Dosing Est GFR ( Amer) Est GFR (Non-Af Amer) BUN/Creatinine Ratio Glucose POC Glucose Lactate 1.8 Calcium Ionized Calcium Magnesium Total Bilirubin AST ALT Alkaline Phosphatase Troponin I NT-Pro-B Natriuret Pep Total Protein Albumin Globulin Albumin/Globulin Ratio Lipase Nasal Screen MRSA (PCR) Digoxin 1.9 Blood Type A Positive Antibody Screen NEGATIVE Crossmatch See Detail 01/23/19 01/23/19 01/23/19 14:30 14:53 18:15 WBC RBC Hgb 7.5 L Hct 24.6 L MCV MCH MCHC RDW Std Deviation RDW Coeff of Elaine Plt Count MPV Immature Gran % (Auto) Neut % (Auto) Lymph % (Auto) [place] % (Auto) Eos % (Auto) Baso % (Auto) Immature Gran # (Auto) Neut # (Auto) Lymph # (Auto) [place] # (Auto) Eos # (Auto) Baso # (Auto) Absolute Nucleated RBC Nucleated RBC % (auto) Anisocytosis Echinocytes Acanthocytes (Spur) PT INR APTT PTT Ratio Fibrinogen 456 H Sodium Potassium Chloride Carbon Dioxide Anion Gap BUN Creatinine Est Cr Clr Drug Dosing Est GFR ( Amer) Est GFR (Non-Af Amer) BUN/Creatinine Ratio Glucose POC Glucose Lactate Calcium Ionized Calcium Magnesium Total Bilirubin AST ALT Alkaline Phosphatase Troponin I NT-Pro-B Natriuret Pep Total Protein Albumin Globulin Albumin/Globulin Ratio Lipase Nasal Screen MRSA (PCR) Negative Digoxin Blood Type Antibody Screen Crossmatch 01/23/19 01/24/19 01/24/19 20:27 00:32 00:32 WBC RBC Hgb 8.9 L Hct 28.1 L MCV MCH MCHC RDW Std Deviation RDW Coeff of Elaine Plt Count MPV Immature Gran % (Auto) Neut % (Auto) Lymph % (Auto) [place] % (Auto) Eos % (Auto) Baso % (Auto) Immature Gran # (Auto) Neut # (Auto) Lymph # (Auto) [place] # (Auto) Eos # (Auto) Baso # (Auto) Absolute Nucleated RBC Nucleated RBC % (auto) Anisocytosis Echinocytes Acanthocytes (Spur) PT INR APTT PTT Ratio Fibrinogen Sodium 148 H Potassium 4.3 Chloride 118 H Carbon Dioxide 23 Anion Gap 7.0 BUN 49 H Creatinine 1.38 Est Cr Clr Drug Dosing 37.2 Est GFR ( Amer) 53.3 Est GFR (Non-Af Amer) 46.0 BUN/Creatinine Ratio 35.3 H Glucose 94 POC Glucose 123 H Lactate Calcium 7.9 L Ionized Calcium Magnesium Total Bilirubin AST ALT Alkaline Phosphatase Troponin I NT-Pro-B Natriuret Pep Total Protein Albumin Globulin Albumin/Globulin Ratio Lipase Nasal Screen MRSA (PCR) Digoxin Blood Type Antibody Screen Crossmatch 01/24/19 01/24/19 01/24/19 00:32 04:01 04:01 WBC 4.84 RBC 2.80 L Hgb 8.4 L Hct 26.6 L MCV 95.0 D MCH 30.0 MCHC 31.6 L RDW Std Deviation 72.7 H RDW Coeff of Elaine 22.2 H Plt Count 153 MPV 10.2 Immature Gran % (Auto) 0.2 Neut % (Auto) 74.6 Lymph % (Auto) 15.5 [place] % (Auto) 8.3 Eos % (Auto) 1.0 Baso % (Auto) 0.4 Immature Gran # (Auto) 0.01 Neut # (Auto) 3.61 Lymph # (Auto) 0.75 L [place] # (Auto) 0.40 Eos # (Auto) 0.05 Baso # (Auto) 0.02 Absolute Nucleated RBC 0.04 H Nucleated RBC % (auto) 0.7 Anisocytosis Present Echinocytes Acanthocytes (Spur) 1+ PT INR APTT PTT Ratio Fibrinogen Sodium 149 H Potassium 4.4 Chloride 119 H Carbon Dioxide 26 Anion Gap 4.0 BUN 49 H Creatinine 1.44 H Est Cr Clr Drug Dosing 35.6 Est GFR ( Amer) 50.6 Est GFR (Non-Af Amer) 43.7 BUN/Creatinine Ratio 34.3 H Glucose 80 POC Glucose Lactate Calcium 7.9 L Ionized Calcium 1.09 L Magnesium 2.6 H Total Bilirubin AST ALT Alkaline Phosphatase Troponin I NT-Pro-B Natriuret Pep Total Protein Albumin Globulin Albumin/Globulin Ratio Lipase Nasal Screen MRSA (PCR) Digoxin Blood Type Antibody Screen Crossmatch 01/24/19 04:01 WBC RBC Hgb Hct MCV MCH MCHC RDW Std Deviation RDW Coeff of Elaine Plt Count MPV Immature Gran % (Auto) Neut % (Auto) Lymph % (Auto) [place] % (Auto) Eos % (Auto) Baso % (Auto) Immature Gran # (Auto) Neut # (Auto) Lymph # (Auto) [place] # (Auto) Eos # (Auto) Baso # (Auto) Absolute Nucleated RBC Nucleated RBC % (auto) Anisocytosis Echinocytes Acanthocytes (Spur) PT 11.4 INR 1.1 APTT 30.5 PTT Ratio 1.1 Fibrinogen Sodium Potassium Chloride Carbon Dioxide Anion Gap BUN Creatinine Est Cr Clr Drug Dosing Est GFR ( Amer) Est GFR (Non-Af Amer) BUN/Creatinine Ratio Glucose POC Glucose Lactate Calcium Ionized Calcium Magnesium Total Bilirubin AST ALT Alkaline Phosphatase Troponin I NT-Pro-B Natriuret Pep Total Protein Albumin Globulin Albumin/Globulin Ratio Lipase Nasal Screen MRSA (PCR) Digoxin Blood Type Antibody Screen Crossmatch Diagnostic Findings 01/23/[address] Abd/Pelvis w/IV contrast 1. Inflammatory change within the right upper quadrant surrounding the thickened proximal duodenum. Possible 1 cm ulceration along the anterior wall of the proximal duodenum. Therefore, findings are concerning for peptic ulcer disease with possible impending perforation. No evidence for extraluminal gas at this time. Endoscopy is recommended for further evaluation. 2. The inflammatory change also a extends to the gallbladder. However, there is no gallbladder wall thickening. Acute cholecystitis would be considered less likely. Clinical correlation recommended. 3. Moderate bilateral hydroureteronephrosis with diffuse urothelial thickening within the renal collecting systems and ureters. The bilateral hydronephrosis favors chronic outlet obstruction. Associated urothelial thickening may represent a superimposed pyelitis/pyelonephritis. Recommend correlation with urinalysis. 4. There is also marked bladder wall thickening and inflammatory change which is decompressed by Morocho catheter. Findings are consistent with a cystitis. 5. Small bilateral pleural effusions with consolidation of the bilateral lower lobes. This may represent atelectasis or pneumonia. 6. Cardiomegaly with pericardial calcifications, unchanged. 7. Diffuse interstitial thickening within the lung bases. This may represent mild pulmonary edema. A. Bilateral nephrolithiasis. Medications Administered Atorvastatin Calcium (Lipitor) 40 mg PO HS [facility] Stop: 02/22/19 20:59 Last Admin: 01/23/19 20:10 Dose: 40 mg Documented by: [id number] Docusate Sodium (Colace) 100 mg PO BID DENIS Stop: 02/22/19 20:59 Last Admin: 01/23/19 20:10 Dose: Not Given Documented by: [id number] Ceftriaxone Sodium 1,000 mg/ (Dextrose) 50 mls @ 100 mls/hr IV Q24H [facility]; Protocol Stop: 01/28/19 17:59 Last Infusion: 01/23/19 19:13 Dose: 0 mls/hr Documented by: [id number] Admin: 01/23/19 18:27 Dose: 100 mls/hr Documented by: [id number] Pantoprazole Sodium 40 mg/ (Syringe) 10 mls @ 5 mls/min IV BID@0900,2100 [facility] Stop: 02/22/19 20:59 Last Admin: 01/23/19 20:10 Dose: 5 mls/min Documented by: [id number] Lactated Ringer's (Lr) 1,000 mls @ 80 mls/hr IV .[id number] [facility] Stop: 02/23/19 01:14 Last Admin: 01/24/19 01:18 Dose: 80 mls/hr Documented by: [id number] Ioversol (Optiray 320 125ml) 94 ml IV ONCE PRN PRN Reason: Interaction Checking Stop: 01/27/19 11:45 Last Admin: 01/23/19 11:47 Dose: 94 ml Documented by: [id number] Levothyroxine Sodium (Synthroid) 50 mcg PO DAILYBB [facility] Stop: 02/23/19 06:29 Last Admin: 01/24/19 05:56 Dose: 50 mcg Documented by: [id number] Tamsulosin HCl (Flomax) 0.4 mg PO HS [facility] Stop: 02/22/19 20:59 Last Admin: 01/23/19 20:09 Dose: 0.4 mg Documented by: [id number] PG Care Time/CCT Total # of Minutes Spent Total Time Spent with Patient: Total time spent is greater than 50% in coordination of care (as documented) at patient's floor/unit and/or counseling patient: Resident Activity Tracking Resident Involvement: Resident Care Provided Care Provided: Adult Hospital Medicine (ICU)
--- NOTE | 2019-01-24 07:47 | Hospitalist Progress Note ---
Date of Service January 24, 2019 Assessment & Plan (1) GI bleed: EGD done on 01/[address] Schneider found 4 non-bleeding duodenal ulcers. Hgb on admission was 5.2 on admission. - PPI PO BID recommended - Will switch to IV until seen by BUILDING RENTAL SUPERINTENDENT for possible aspiration - Hold anticoagulation - Hgb now 8.4 on 01/24 after 3 units of PRBCs on 01/23. (2) Hypovolemic shock: Now resolved with fluid and RBC resuscitation. - Monitor (3) Atrial fibrillation: Was on Xarelto for anticoagulation. - Holding anticoagulation in light of bleeding - Rate-controlled on digoxin - Level was 1.9 on 01/23 (4) Duodenal ulcer: See on EGD. - PPI PO BID x 1 month, then daily (5) Encephalopathy acute: Likely multifactorial secondary to hypotension, worsening dementia, GI bleed, severe anemia. Unclear baseline. - Will monitor as hemodynamics and hgb improve. (6) CKD (chronic kidney disease): Baseline Cr ~1.4, eGFR ~45. - Presently at baseline. - Monitor (7) Hypothyroidism: TSH was 7.3 this admission. No signs/symptoms of hypo-/hyperthyroidism. - Continue home Synthroid 50 mcg (8) DVT prophylaxis: SCDs - Given GI bleed Subjective No complaints at present for me. Is only AAOx1, but denies shortness of breath, chest pain, abdominal pain. Does not recall events that led to his admission. Reports no fevers/chills, chest pain, shortness of breath, abdominal pain, nausea, or vomiting. Physical Exam Constitutional: + frail appearing and cooperative; no acute distress Eyes: EOM intact bilaterally; no conjunctival abnormality ENMT: external ear and nose normal, oropharynx normal Neck: trachea midline, no thyromegaly normal visual inspection Respiratory: normal respiratory effort, lungs clear to auscultation no respiratory distress Cardiovascular: RRR, no murmur, no edema Gastrointestinal (Abdomen): Inspection/Auscultation: abdomen normal to inspection and normal bowel sounds; abdomen not distended Percussion/Palpation: abdomen soft; abdomen nontender, no guarding and abdomen not rigid Musculoskeletal: no cyanosis or clubbing, extremities motor strength 5/5 Skin: no rashes, warm and dry Neurologic: moves all extremities and awake Psychiatric: Orientation: alert, oriented to person and cooperative Results & Data Vital Signs (Past 12 Hours) Vital Signs Temp Pulse Pulse Resp BP BP Pulse Ox 01/24/19 07:00 56 L 17 112/42 L 97 01/24/19 06:00 58 L 17 122/59 L 97 01/24/19 05:00 60 15 99/55 L 96 01/24/19 04:00 36.5 C 55 L 14 95/50 L 97 01/24/19 03:00 55 L 13 100/61 97 01/24/19 02:00 52 L 14 118/51 L 96 01/24/19 01:00 60 14 93/56 L 98 01/24/19 00:00 36.4 C L 64 13 105/63 98 01/23/19 23:38 36.4 C L 65 17 98 01/23/19 23:19 73 12 124/64 01/23/19 23:00 52 L 12 114/87 98 01/23/19 22:19 50 L 12 118/66 98 01/23/19 22:00 56 L 14 98/61 L 99 01/23/19 21:21 59 L 14 122/67 98 01/23/19 21:19 63 13 99/55 L 98 01/23/19 20:49 52 L 13 114/67 99 01/23/19 20:34 36.4 C L 65 16 95/56 L 98 01/23/19 20:18 36.5 C 67 17 115/67 98 PG Care Time/CCT Total # of Minutes Spent Total Time Spent with Patient: Total time spent is greater than 50% in coordination of care (as documented) at patient's floor/unit and/or counseling patient: (1) CKD (chronic kidney disease) Chronic kidney disease stage: unspecified stage Qualified Code(s): N18.9 - Chronic kidney disease, unspecified
[2019-01-24] MEDS ORDERED: PNEUMOCOCCAL POLYSACCHARIDES 25 MCG/0.5 ML VIAL/SYR IM ONE (08:00)
[2019-01-24] MEDS ORDERED: INFLUENZA VACCINE HIGH DOSE 65+ 0.5 ML SYR IM ONE (08:00)
[2019-01-24] MEDS ORDERED: PNEUMOCOCCAL ADMINISTRATION CHARGE ONE (08:00)
[2019-01-24] MEDS ORDERED: INFLUENZA ADMINISTRATION CHARGE ONE (08:00)
--- NOTE | 2019-01-24 08:11 | Anesthesiology Progress Note ---
Date of Service January 24, 2019 Anesthesia Post Procedure Vital Signs Vital Signs: Temp Pulse Pulse Resp BP BP Pulse Ox 01/24/19 07:00 56 L 17 112/42 L 97 01/24/19 06:00 58 L 17 122/59 L 97 01/24/19 05:00 60 15 99/55 L 96 01/24/19 04:00 36.5 C 55 L 14 95/50 L 97 01/24/19 03:00 55 L 13 100/61 97 01/24/19 02:00 52 L 14 118/51 L 96 01/24/19 01:00 60 14 93/56 L 98 01/24/19 00:00 36.4 C L 64 13 105/63 98 01/23/19 23:38 36.4 C L 65 17 98 01/23/19 23:19 73 12 124/64 01/23/19 23:00 52 L 12 114/87 98 01/23/19 22:19 50 L 12 118/66 98 01/23/19 22:00 56 L 14 98/61 L 99 01/23/19 21:21 59 L 14 122/67 98 01/23/19 21:19 63 13 99/55 L 98 01/23/19 20:49 52 L 13 114/67 99 01/23/19 20:34 36.4 C L 65 16 95/56 L 98 01/23/19 20:18 36.5 C 67 17 115/67 98 01/23/19 19:00 70 16 118/57 L 96 01/23/19 18:45 88 19 145/120 H 95 01/23/19 18:31 82 20 119/56 L 96 01/23/19 18:15 68 16 110/66 96 01/23/19 18:05 35.8 C L 61 18 115/51 L 100 01/23/19 18:04 71 21 115/51 L 100 01/23/19 17:55 79 25 H 81/61 L 100 01/23/19 17:50 67 22 100/54 L 100 01/23/19 17:45 62 23 102/55 L 99 01/23/19 17:40 58 L 23 97/55 L 100 01/23/19 17:39 69 25 H 105/60 100 01/23/19 17:09 35.7 C L 74 17 104 H 01/23/19 17:00 74 19 104/63 96 01/23/19 16:46 76 15 110/68 96 01/23/19 16:44 35.8 C L 74 14 110/68 96 01/23/19 16:31 79 20 91/58 L 97 01/23/19 16:29 36.5 C 72 15 91/58 L 96 01/23/19 16:16 68 17 109/59 L 96 01/23/19 16:13 36.5 C 77 19 80/56 L 96 01/23/19 16:01 76 15 80/56 L 01/23/19 15:45 76 17 98/53 L 96 01/23/19 15:41 36.5 C 63 18 95/58 L 96 01/23/19 15:30 36.5 C 61 15 95/58 L 96 01/23/19 15:26 36.6 C 57 L 17 103/64 96 01/23/19 15:15 67 17 103/64 97 01/23/19 15:04 72 21 111/49 L 98 01/23/19 15:00 64 17 78/61 L 98 01/23/19 14:45 73 20 109/64 95 01/23/19 14:34 35.3 C L 74 21 121/58 L 95 01/23/19 14:00 71 19 107/61 01/23/19 13:45 34.5 C L 60 18 114/54 L 98 01/23/19 13:15 50 L 16 86/47 L 01/23/19 12:55 62 18 95/43 L 96 01/23/19 12:40 35.0 C L 52 L 16 81/45 L 96 01/23/19 12:30 35.0 C L 65 68 16 82/47 L 82/47 L 97 01/23/19 12:20 34.8 C L 60 18 92/58 L 99 01/23/19 11:00 60 22 101/49 L 98 01/23/19 10:58 64 21 97 01/23/19 10:41 95 01/23/19 10:38 33.8 C L 60 18 94/54 L 95 01/23/19 10:31 60 20 96/69 L 98 Notes Mental Status: alert / awake / arousable and participated in evaluation Patient Amnestic to Procedure: Yes Nausea / Vomiting: adequately controlled Pain: adequately controlled Airway Patency, RR, SpO2: stable & adequate BP & HR: stable & adequate Hydration State: stable & adequate Anesthetic Complications: no major complications apparent and Pt Satisfied with anesthetic care
[2019-01-24] MEDS ORDERED: MAGNESIUM HYDROXIDE SUSP 30 ML UDC PO SCH (09:00)
[2019-01-24] MEDS: PANTOprazole 40 MG TAB PO SCH ×2 (09:13→09:44)
[2019-01-24] MEDS: VITAMIN B COMPLEX TAB PO SCH ×2 (09:14→09:44)
[2019-01-24] MEDS: DOCUSATE SODIUM 100 MG CAP PO SCH ×3 (09:14→20:37)
[2019-01-24] MEDS: POTASSIUM CHLORIDE 20 MEQ TABCR PO SCH ×2 (09:14→09:44)
[2019-01-24] MEDS: DOCUSATE SODIUM/SENNA 50/8.6MG TAB PO SCH ×2 (09:14→09:44)
[2019-01-24] MEDS: MULTIVITAMIN TAB PO SCH ×2 (09:14→09:44)
[2019-01-24] MEDS: CHOLECALCIFEROL 1,000 UNITS TAB PO SCH ×2 (09:14→09:44)
--- NOTE | 2019-01-24 09:42 | XRay Report ---
XR chest 1V portable CLINICAL HISTORY: 88 years-old Male presenting with possible pna. TECHNIQUE: Portable upright AP view of the chest was obtained. COMPARISON: 05/17/[address] from 01/23/2019. FINDINGS: Atherosclerosis of the aortic arch. Cardiac silhouette enlarged. Pulmonary vascular prominence and pr ominence of the interstitium increased from prior. Increased bibasilar opacities. Underlying small bi lateral pleural effusions also suspected, new or increased from prior. No large pneumothorax. Osteope nate. Pericardial calcification noted. IMPRESSION: 1. Worsening volume overload and congestive change with suspected mild pulmonary edema and new or in creased bilateral pleural effusions. 2. Cardiomegaly. 3. Pericardial calcification could suggest a history of trauma, infection, or uremia. Electronically signed by: Joseluis Holly M.D. 01/24/2019 9:41 AM
[2019-01-24] MEDS: PANTOprazole 40 MG in SYRINGE 0 ML IV SCH ×2 (09:50→20:37)
--- NOTE | 2019-01-24 10:30 | Gastroenterology Progress Note ---
Date of Service January 24, 2019 Assessment & Plan (1) Acute blood loss anemia: (2) GI bleed: (3) Hypovolemic shock: 1. Clear liquid diet with advancement per [employer] recommendations. 2. Continue Protonix 40 mg BID. 3. Continue supportive care. Supervising Physician Co-Signing Physician Notes I personally evaluated the patient and agree with the findings as documented by ZANDER Lam Exam: abd: soft, nt, nd Subjective Patient is resting comfortably today. Per nursing, he is requesting liquids but is awaiting [employer] evaluation at this time. No overt GIB. Status post EGD with findings of duodenal ulcer without stigmata of bleeding. Continues BID PPI. H&H 8.4 and 26.6 today. Patient to be transferred out of the ICU today. Review of Systems Review of Systems: Unobtainable due to cognitive status Physical Exam Constitutional: WD/WN, vitals as above Respiratory: Auscultation: + diminished lung sounds Cardiovascular: Rate/Rhythm: regular rate and regular rhythm Gastrointestinal (Abdomen): Inspection/Auscultation: normal bowel sounds Percussion/Palpation: abdomen soft Psychiatric: Orientation: alert Results & Data Vital Signs (Past 12 Hours) Vital Signs Temp Pulse Pulse Resp BP BP Pulse Ox 01/24/19 08:00 36.7 C 60 50 L 15 117/44 L 93 01/24/19 07:44 65 01/24/19 07:00 56 L 17 112/42 L 97 01/24/19 06:00 58 L 17 122/59 L 97 01/24/19 05:00 60 15 99/55 L 96 01/24/19 04:00 36.5 C 55 L 14 95/50 L 97 01/24/19 03:00 55 L 13 100/61 97 01/24/19 02:00 52 L 14 118/51 L 96 01/24/19 01:00 60 14 93/56 L 98 01/24/19 00:00 36.4 C L 64 13 105/63 98 01/23/19 23:38 36.4 C L 65 17 98 01/23/19 23:19 73 12 124/64 01/23/19 23:00 52 L 12 114/87 98 Laboratory Results Abnormal lab results 01/23/19 01/23/19 01/23/19 Range/Units 10:52 10:52 10:52 RBC 1.87 L (4.7-6.1) M/uL Hgb 5.7 L* (14.0-18.0) g/dL Hct 19.5 L* (42-52) % MCV 104.3 H (80-100) fL MCHC 29.2 L (32-36) g/dL RDW Std Deviation 80.7 H (36.4-46.3) fL RDW Coeff of Elaine 21.8 H (11.5-14.5) % MPV 10.5 H (7.4-10.4) fL Immature Gran # (Auto) 0.03 H (0.00-0.02) K/uL Neut # (Auto) 7.33 H (1.4-6.5) K/uL Lymph # (Auto) 0.89 L (1.2-3.4) K/uL [place] # (Auto) 0.72 H (0.11-0.59) K/uL Absolute Nucleated RBC (0-0) K/uL Fibrinogen (184-400) mg/dl Sodium (136-145) mmol/L Chloride 115 H (98-107) mmol/L BUN 57 H (7-18) mg/dl Creatinine 1.52 H (0.6-1.4) mg/dl BUN/Creatinine Ratio 37.3 H (10-20) POC Glucose (70-99) Calcium (8.5-10.1) mg/dl Ionized Calcium (1.12-1.32) mmol/L Magnesium 2.9 H (1.8-2.4) mg/dl Albumin 2.0 L (3.4-5.0) gm/dl Globulin 4.9 H (2.5-4.0) gm/dl Albumin/Globulin Ratio 0.4 L (0.9-2) Crossmatch See Detail 01/23/19 01/23/19 01/23/19 Range/Units 14:53 18:15 20:27 RBC (4.7-6.1) M/uL Hgb 7.5 L (14.0-18.0) g/dL Hct 24.6 L (42-52) % MCV (80-100) fL MCHC (32-36) g/dL RDW Std Deviation (36.4-46.3) fL RDW Coeff of Elaine (11.5-14.5) % MPV (7.4-10.4) fL Immature Gran # (Auto) (0.00-0.02) K/uL Neut # (Auto) (1.4-6.5) K/uL Lymph # (Auto) (1.2-3.4) K/uL [place] # (Auto) (0.11-0.59) K/uL Absolute Nucleated RBC (0-0) K/uL Fibrinogen 456 H (184-400) mg/dl Sodium (136-145) mmol/L Chloride (98-107) mmol/L BUN (7-18) mg/dl Creatinine (0.6-1.4) mg/dl BUN/Creatinine Ratio (10-20) POC Glucose 123 H (70-99) Calcium (8.5-10.1) mg/dl Ionized Calcium (1.12-1.32) mmol/L Magnesium (1.8-2.4) mg/dl Albumin (3.4-5.0) gm/dl Globulin (2.5-4.0) gm/dl Albumin/Globulin Ratio (0.9-2) Crossmatch 01/24/19 01/24/19 01/24/19 Range/Units 00:32 00:32 00:32 RBC (4.7-6.1) M/uL Hgb 8.9 L (14.0-18.0) g/dL Hct 28.1 L (42-52) % MCV (80-100) fL MCHC (32-36) g/dL RDW Std Deviation (36.4-46.3) fL RDW Coeff of Elaine (11.5-14.5) % MPV (7.4-10.4) fL Immature Gran # (Auto) (0.00-0.02) K/uL Neut # (Auto) (1.4-6.5) K/uL Lymph # (Auto) (1.2-3.4) K/uL [place] # (Auto) (0.11-0.59) K/uL Absolute Nucleated RBC (0-0) K/uL Fibrinogen (184-400) mg/dl Sodium 148 H (136-145) mmol/L Chloride 118 H (98-107) mmol/L BUN 49 H (7-18) mg/dl Creatinine (0.6-1.4) mg/dl BUN/Creatinine Ratio 35.3 H (10-20) POC Glucose (70-99) Calcium 7.9 L (8.5-10.1) mg/dl Ionized Calcium 1.09 L (1.12-1.32) mmol/L Magnesium (1.8-2.4) mg/dl Albumin (3.4-5.0) gm/dl Globulin (2.5-4.0) gm/dl Albumin/Globulin Ratio (0.9-2) Crossmatch 01/24/19 01/24/19 Range/Units 04:01 04:01 RBC 2.80 L (4.7-6.1) M/uL Hgb 8.4 L (14.0-18.0) g/dL Hct 26.6 L (42-52) % MCV (80-100) fL MCHC 31.6 L (32-36) g/dL RDW Std Deviation 72.7 H (36.4-46.3) fL RDW Coeff of Elaine 22.2 H (11.5-14.5) % MPV (7.4-10.4) fL Immature Gran # (Auto) (0.00-0.02) K/uL Neut # (Auto) (1.4-6.5) K/uL Lymph # (Auto) 0.75 L (1.2-3.4) K/uL [place] # (Auto) (0.11-0.59) K/uL Absolute Nucleated RBC 0.04 H (0-0) K/uL Fibrinogen (184-400) mg/dl Sodium 149 H (136-145) mmol/L Chloride 119 H (98-107) mmol/L BUN 49 H (7-18) mg/dl Creatinine 1.44 H (0.6-1.4) mg/dl BUN/Creatinine Ratio 34.3 H (10-20) POC Glucose (70-99) Calcium 7.9 L (8.5-10.1) mg/dl Ionized Calcium (1.12-1.32) mmol/L Magnesium 2.6 H (1.8-2.4) mg/dl Albumin (3.4-5.0) gm/dl Globulin (2.5-4.0) gm/dl Albumin/Globulin Ratio (0.9-2) Crossmatch PG Care Time/CCT Total # of Minutes Spent Total Time Spent with Patient: Total time spent is greater than 50% in coordination of care (as documented) at patient's floor/unit and/or counseling patient: (1) GI bleed GI bleed type/associated pathology: unspecified gastrointestinal hemorrhage type Qualified Code(s): K92.2 - Gastrointestinal hemorrhage, unspecified
[2019-01-24] MEDS ORDERED: PANTOprazole 40 MG in SYRINGE 0 ML IV ONE (13:00)
[2019-01-24] MEDS ORDERED: DIGOXIN 0.125 MG TAB PO SCH (16:00)
[2019-01-24] MEDS: TAMSULOSIN HCL 0.4 MG CAP PO SCH (20:37)
[2019-01-24] MEDS: ATORVASTATIN 40 MG TAB PO SCH (20:38)
[2019-01-25] MEDS: LEVOTHYROXINE SODIUM 50 MCG TABLET PO SCH (06:05)
[2019-01-25 07:16] LABS: Basophils # (auto) 0.04 K/uL (0-0.2); Basophils % (auto) 0.8 %; Eosinophils # (auto) 0.12 K/uL (0-0.5); Eosinophils % (auto) 2.3 %; Hematocrit (blood only) 26.7 % (42-52); Hemoglobin 8.4 g/dL (14.0-18.0); Immature Granulocytes # (auto) 0.01 K/uL (0.00-0.02); Immature Granulocytes % (auto) 0.2 %; Lymphocytes # (auto) 0.86 K/uL (1.2-3.4); Lymphocytes % (auto) 16.4 %; Mean Corpuscular Hemoglobin 30.2 pg (25-34); Mean Corpuscular Hgb Conc 31.5 g/dL (32-36); Monocytes # (auto) 0.42 K/uL (0.11-0.59); Neutrophils # (auto) 3.79 K/uL (1.4-6.5); Neutrophils % (auto) 72.3 %; Platelet Count 159 K/uL (130-400); RDW Coefficient of Variation 22.8 % (11.5-14.5); RDW Standard Deviation 75.1 fL (36.4-46.3); Red Blood Count 2.78 M/uL (4.7-6.1); White Blood Count 5.24 K/uL (4.8-10.8)
[2019-01-25 07:39] LABS: Anisocytosis Present; Echinocytes 1+
[2019-01-25 07:58] LABS: BUN Creatinine Ratio 38.6 (10-20); Calcium 8.2 mg/dl (8.5-10.1); Creatinine Clr Calc Pharmacy 38.8 ml/min; Est GFR (African American) 56.7; Magnesium 2.6 mg/dl (1.8-2.4); Potassium 3.9 mmol/L (3.5-5.1)
[2019-01-25] MEDS: MULTIVITAMIN TAB PO SCH (09:40)
[2019-01-25] MEDS: POTASSIUM CHLORIDE 20 MEQ TABCR PO SCH (09:40)
[2019-01-25] MEDS: PANTOprazole 40 MG in SYRINGE 0 ML IV SCH (09:40)
[2019-01-25] MEDS: DOCUSATE SODIUM 100 MG CAP PO SCH (09:40)
[2019-01-25] MEDS: CHOLECALCIFEROL 1,000 UNITS TAB PO SCH (09:41)
[2019-01-25] MEDS: DOCUSATE SODIUM/SENNA 50/8.6MG TAB PO SCH (09:41)
[2019-01-25] MEDS: VITAMIN B COMPLEX TAB PO SCH (09:41)
--- NOTE | 2019-01-25 14:27 | Gastroenterology Progress Note ---
Date of Service January 25, 2019 Assessment & Plan (1) Duodenal ulcer: Continue Protonix 40 mg by mouth twice daily 1/2 hour prior to breakfast and dinner. Check H. pylori stool Ag. Continue supportive care. Subjective Nursing reports no overt GI bleeding. Patient denies abdominal pain. States he is eating "ok." History limited secondary to dementia. Review of Systems Review of Systems: Unobtainable due to cognitive status Physical Exam Constitutional: WD/WN, vitals as above Respiratory: normal respiratory effort, lungs clear to auscultation Cardiovascular: RRR, no murmur, no edema Gastrointestinal (Abdomen): normal bowel sounds, soft, nontender, no hepatosplenomegaly Results & Data Vital Signs (Past 12 Hours) Vital Signs Pulse Pulse Resp BP Pulse Ox 01/25/19 10:58 66 18 109/68 96 01/25/19 08:00 79 01/25/19 07:16 69 20 125/72 94 01/25/19 03:20 63 20 104/65 93 01/25/19 03:16 63 20 104/65 93 PG Care Time/CCT Total # of Minutes Spent Total Time Spent with Patient: Total time spent is greater than 50% in coordination of care (as documented) at patient's floor/unit and/or counseling patient:
--- NOTE | 2019-01-25 15:04 | Discharge Summary ---
Date of Service January 25, 2019 Principal Diagnosis Duodenal ulcers Discharge Exam Constitutional WD/WN, vitals as above + frail appearing and cooperative; no acute distress Eyes EOM intact bilaterally; no conjunctival abnormality ENMT external ear and nose normal, oropharynx normal Neck trachea midline, no thyromegaly normal visual inspection Respiratory normal respiratory effort, lungs clear to auscultation no respiratory distress Cardiovascular RRR, no murmur, no edema Gastrointestinal (Abdomen) Inspection/Auscultation: abdomen normal to inspection and normal bowel sounds; abdomen not distended Percussion/Palpation: abdomen soft; abdomen nontender, no guarding and abdomen not rigid Musculoskeletal no cyanosis or clubbing, extremities motor strength 5/5 Skin no rashes, warm and dry Neurologic moves all extremities and awake Psychiatric Orientation: alert, oriented to person and cooperative Discharge Data Allergies Allergy/AdvReac Type Severity Reaction Status Date / Time No Known Allergies Allergy Unknown Verified 01/23/19 12:29 Consultations 01/23/19 13:10 Consult Gastroenterology Stat 01/23/19 13:14 Consult Case Management - Discharge Planning Routine 01/23/19 13:16 Consult Instructional Technology Teacher Routine Procedures Performed Operation Date: 01/23/19 07:00 Actual Procedures p Esophagogastroduodenoscopy for GI Bleed - Arden Schneider, DO Ordered Studies 01/23/19 11:28 CT abd pelvis IV con only Stat Hospital Course (1) GI bleed: EGD done on 01/[address] Schneider found 4 non-bleeding duodenal ulcers. Hgb on admission was 5.2 on admission. - Hgb now 8.4 on 01/24 & 01/25 after 3 units of PRBCs on 01/23. - PPI PO BID recommended x 1 month - Hold anticoagulation for 1 week. If possible switch to Eliquis 2.5mg BID for lower GI bleed risk in CKD and elderly. - GI would like H. pylori stool testing done when able. He did not have it collected in the hospital. (2) Hypovolemic shock: Now resolved with fluid and RBC resuscitation. - Monitor (3) Atrial fibrillation: Was on Xarelto for anticoagulation. - Holding anticoagulation in light of bleeding - Rate-controlled on digoxin - Level was 1.9 on 01/23 - Wait 1 week and restart anticoagulation. As above, recommend Eliquis 2.5mg PO BID for age and CKD. (He is barely on the cutoff as his Cr trends around 1.5.) (4) Duodenal ulcer: See on EGD. - PPI PO BID x 1 month, then daily (5) Encephalopathy acute: Likely multifactorial secondary to hypotension, worsening dementia, GI bleed, severe anemia. Unclear baseline. - Will monitor as hemodynamics and hgb improve. (6) CKD (chronic kidney disease): Baseline Cr ~1.4-1.5, eGFR ~45. - Presently at baseline. - Monitor (7) Hypothyroidism: TSH was 7.3 this admission. No signs/symptoms of hypo-/hyperthyroidism. - Continue home Synthroid 50 mcg (8) DVT prophylaxis: SCDs - Given GI bleed Total Time Total Time Spent Total Time Spent (In Minutes): 35 Total Time Includes: Examination of the Patient and Communication With Other Providers Discharge Plan Discharge Items Patient Disposition: Transfer [facility] Reason For Visit: HYPOVOLEMIC SHOCK Discharge Diagnosis: GI bleed causing low blood pressure Activity: Resume your previous activity Non-emergency contact: Primary Care Provider and Code Number Stamper Call non-emergency contact if: your symptoms worsen Follow-up/Referrals: Arden Schneider, [Physician] - (Please see Dr. Schneider in 4 weeks.) [facility] [Primary Care Provider] - Diet: Regular Addtl Attending Provider Instructions: You were admitted for a GI bleed. Dr. Schneider did a scope on you and did not see any active bleeding. We would like you to stop your Xarelto for 1 week, then please switch to Eliquis if possible as this has a lower risk of GI bleeding. Please collect an H. pylori stool sample if able. He did not have a BM in the day prior to discharge, so we could not collect it inpatient. Please take the pantoprazole 2 times per day for at least [address] Schneider tells you to switch to daily. Please come back to the hospital with any further bloody stools or dark, tarry stools. Pending Studies at Discharge: No Stand-Alone Forms: My [facility] UpDown Skilled Items Patient informed of condition?: Yes DNR: No Discharge Level of Care: Skilled Communicable Disease: No Discharge Prognosis: Stable Lines: None Urinary Catheter: No Medications and DC Order Prescriptions: New pantoprazole 40 mg tablet,delayed release (DR/EC) 40 mg PO BID Qty: 1 RF: 0 Continued digoxin 125 mcg (0.125 mg) Tablet 125 mcg PO DAILY Qty: 0 RF: 0 docusate sodium 100 mg Capsule 100 mg PO BID 30 Days Qty: 30 RF: 0 acetaminophen 325 mg Tablet 650 mg PO Q6H PRN (Reason: PAIN/FEVER) Qty: 0 RF: 0 magnesium hydroxide [Milk of Magnesia] 400 mg/5 mL Suspension 30 ml PO DAILY Qty: 0 RF: 0 Fleet Enema 19-7 gram/118 mL Enema 118 ml ME DAILY PRN (Reason: Constipation) Qty: 0 RF: 0 multivitamin Tablet 1 tab PO DAILY RF: 0 atorvastatin 40 mg tablet 40 mg PO HS RF: 0 sennosides-docusate sodium [Senokot-S] 8.6-50 mg Tablet 1 tab-cap PO DAILY RF: 0 potassium chloride 20 mEq tablet,ER particles/crystals 20 meq PO DAILY RF: 0 tamsulosin 0.4 mg capsule 0.4 mg PO HS RF: 0 levothyroxine 50 mcg tablet 50 mcg PO DAILY RF: 0 bisacodyl 10 mg Suppository 10 mg ME DAILY PRN (Reason: Constipation) RF: 0 Stress B Plus Zinc Tablet 1 tab PO DAILY RF: 0 cholecalciferol (vitamin D3) 2,000 unit Tablet 2,000 unit PO DAILY RF: 0 Discontinued Xarelto 15 mg tablet 15 mg PO DAILY RF: 0 Discharge Orders: Discharge Order (Routine); Ordered 01/25/19 Ordered By: Christian Herrera Admission Data Admit Date/Time: 01/23/19 13:16 Attending Provider: Christian Herrera Admit Provider: Torsten Scott Primary Care Provider: [facility] ; Arden [facility] ; Bryan Alfaro Other Interventions: Discharge Summary Assessment (RN) Last Done: 01/25/19 14:28
== END 2019-01-25 16:23 | DRG 377 ==
LOC: ED 10:24 → SUATTDRO 13:16 → 1E 13:16 → 2W 01-24 09:31

== ENCOUNTER 2019-02-03 22:11 | Inpatient (IN) ==
[2019-02-03] MEDS ORDERED: ALBUT/IPRATROP 3MG/0.5MG NEB 3 ML VIAL NEB STA (22:29)
[2019-02-03 22:58] LABS: INR 1.1 (0.9-1.1); Partial Thromboplastin Ratio 1.1; Partial Thromboplastin Time 30.8 Seconds (21.0-31.0); Prothrombin Time 10.9 Seconds (9.0-12.0)
--- NOTE | 2019-02-03 23:01 | XRay Report ---
XR chest 1V portable CLINICAL HISTORY: Sepsis dyspnea COMPARISON STUDY: 01/27/2019 FINDINGS: Findings of pulmonary edema. This is increased in prominence from the prior study. Mild inc rease in bilateral pleural effusions. IMPRESSION: Findings of progressive pulmonary edema/congestive heart failure. Mildly progressive griselda ateral pleural effusions. The above report was generated using voice recognition software. It may contain grammatical, syntax or spelling errors. Electronically signed by: Jadon Morales M.D. 02/03/2019 11:00 PM
[2019-02-03 23:03] LABS: Alanine Aminotransferase 23 U/L (12-78); Albumin Level 1.9 gm/dl (3.4-5.0); Aspartate Aminotransferase 25 U/L (15-37); BUN Creatinine Ratio 15.6 (10-20); Blood Urea Nitrogen 17 mg/dl (7-18); Calcium 8.4 mg/dl (8.5-10.1); Carbon Dioxide 25 mmol/L (21-32); Chloride 123 mmol/L (98-107); Est GFR (African American) 68.8; Est GFR (Non-African American) 59.4; Glucose 120 mg/dl (70-99); Sodium 152 mmol/L (136-145)
[2019-02-03 23:05] LABS: Hematocrit (blood only) 27.8 % (42-52); Hemoglobin 8.3 g/dL (14.0-18.0); Mean Corpuscular Hgb Conc 29.9 g/dL (32-36); Mean Corpuscular Volume 100.4 fL (80-100); Platelet Count 145 K/uL (130-400); RDW Coefficient of Variation 22.3 % (11.5-14.5); RDW Standard Deviation 80.4 fL (36.4-46.3); Red Blood Count 2.77 M/uL (4.7-6.1); White Blood Count 5.46 K/uL (4.8-10.8)
[2019-02-03 23:07] LABS: Acanthocytes 1+; Albumin Globulin Ratio 0.4 (0.9-2); Alkaline Phosphatase 115 U/L (45-117); Anisocytosis Present; Basophils # (auto) 0.01 K/uL (0-0.2); Basophils % (auto) 0.2 %; Bilirubin,Total 0.5 mg/dl (0.2-1); Eosinophils # (auto) 0.06 K/uL (0-0.5); Eosinophils % (auto) 1.1 %; Globulin 4.4 gm/dl (2.5-4.0); Immature Granulocytes # (auto) 0.03 K/uL (0.00-0.02); Immature Granulocytes % (auto) 0.5 %; Lymphocytes # (auto) 0.43 K/uL (1.2-3.4); Lymphocytes % (auto) 7.9 %; Monocytes # (auto) 0.16 K/uL (0.11-0.59); Monocytes % (auto) 2.9 %; Neutrophils # (auto) 4.77 K/uL (1.4-6.5); Neutrophils % (auto) 87.4 %; Total Protein 6.3 gm/dl (6.4-8.2); Troponin I < 0.015 ng/ml (0-0.045)
[2019-02-03 23:38] LABS: NT Pro B Type Natriuretic Pept 2471 pg/ml (0-1800)
--- NOTE | 2019-02-04 00:26 | History & Physical Report ---
Date of Service February 04, 2019 Assessment & Plan (1) Aspiration pneumonia: Patient with chronic aspiration. He was evaluated by speech therapy during his last hospital stay. Recommendations for thick nectar for comfort solids and liquids, crushed medications, supervised meals, patient to be fully alert and upright during mealtime, medications to be given in a carrier, single bites with small sips and slow rate and no straws. Patient continues to aspirate. He was evaluated by pulmonary during his last hospital stay as well. -Admission to PCU Strict aspiration precautions as above We will initiate Zosyn for now Duo nebs and albuterol as needed Supplemental oxygen as needed Patient overall has a poor prognosis. Multiple underlying medical comorbidities as well as dementia, chronic aspiration and dysphasia. POA situation should be clarified in a.m. to clearly establish goals of care. Patient would most likely benefit from comfort/palliative measures rather than aggressive care at this point in his life. Present on Admission?: Yes (2) Hypothermia: Patient with history of the same. Possibly secondary to sepsis in the setting of elevated lactate and borderline hypotension. Follow cultures Zosyn as above Jovon hang Present on Admission?: Yes (3) Anemia: Patient with recent upper GI bleed resulting in acute blood loss anemia. Found to have 4 nonbleeding duodenal ulcers on EGD during previous hospital stay. Presently with Hgb = 8.3 and HCT = 27.8. Some blood noted on wiping by the ER staff. Continue twice daily PPI Continue to monitor CBC Transfuse for active bleed or hemoglobin less than 7 Present on Admission?: Yes (4) Hypernatremia: Sodium = 152. Same as previous admission. Per report, patient with poor p.o. intake as well as chronic aspiration and dysphasia. Albumin 25% x 2 bottles Monitor sodium Present on Admission?: Yes (5) Failure to thrive: As above, patient with multiple underlying medical comorbidities and overall poor outcome. Not improving. We will search for easily treatable causes of patient's vital sign instability Provide comfort measures were applicable Present on Admission?: Yes (6) Encephalopathy acute: Patient with baseline dementia, suspect some degree of acute metabolic encephalopathy. He became agitated during his prior hospitalization. Was evaluated by palliative care as well as psychiatry. We will continue Zyprexa 2.5 mg twice daily Delirium prevention strategies with frequent orientation Avoid delirium provoking medications such as benzos/anticholinergics Treatment of underlying medical conditions as above Present on Admission?: Yes (7) Hypotension: Blood pressure presently 100/45. He appears volume contracted on physical exam, possible infectious process contributing as well. Follow cultures Zosyn Albumin as above Present on Admission?: Yes (8) CKD (chronic kidney disease): Patient with baseline creatinine of approximately 1.4. BUN currently 17, creatinine currently 1.17 Avoid nephrotoxic agents, provide renal dosing were necessary Continue to monitor BUN and creatinine with a.m. labs x1 Present on Admission?: Yes (9) Atrial fibrillation: History of atrial fibrillation. Slow ventricular response. Was previously on digoxin, now being held Telemetry monitoring Continue to hold digoxin secondary to bradycardia, hold anticoagulation secondary to recent GI bleed Present on Admission?: Yes (10) Hypothyroid: Chronic. TSH = 7.3 during previous admission. Continue Synthroid 50 mcg daily. If patient unable to tolerate p.o. we will transition to IV F/E/NAlbumin 25% x 2 bottles, monitor electrolytes and replete as needed, comfort food/nectar thick liquids with strict aspiration precautions, continue aggressive bowel regimen Prophylaxiscontinue twice daily PPI as above, no chemoprophylaxis secondary to recent GI bleed, no mechanical prophylaxis secondary to delirium risk CodeDNR/DNI Dispositionobservation to PCU Present on Admission?: Yes History of Present Illness Chief Complaint: Abnormal vital signs Primary Care Provider: [facility] Katy Castanon is an 89-year-old male with multiple medical problems. He was recently admitted to [facility] from 01/23/2019 through 01/25/2019 for treatment of GI bleed secondary to peptic ulcers. He returned to [facility] on 01/27/2019 and was admitted for altered mental status with cough. He was admitted for aspiration pneumonia and metabolic encephalopathy. He was treated with antibiotics and IV fluids and ultimately discharged home to [facility] on 02/01/2019. Patient returns today with abnormal vital signs, hypothermia and difficulty breathing. Patient with underlying dementia and is unable to provide any details. No caregivers or family at bedside. When asked, patient denies pain or shortness of breath. He does think he may have a bladder infection. He then told me to get out of his room. ER course: tesfaye Parisuterol neb x1 Allergies Allergy/AdvReac Type Severity Reaction Status Date / Time No Known Allergies Allergy Unknown Verified 01/23/19 12:29 Home Medications Home Medications Medication Instructions Recorded Confirmed Type acetaminophen 650 mg PO Q6H PRN 02/03/19 02/03/19 History amoxicillin-pot clavulanate 10 ml PO Q8 02/03/19 02/03/19 History [Augmentin] atorvastatin [Lipitor] 40 mg PO HS 02/03/19 02/03/19 History bisacodyl [Dulcolax (bisacodyl)] [address] DAILY PRN 02/03/19 02/03/19 History cholecalciferol (vitamin D3) 2,000 unit PO DAILY 02/03/19 02/03/19 History [Vitamin D3] ipratropium-albuterol 0 ml INHALATION Q4 PRN 02/03/19 02/03/19 History levothyroxine [Synthroid] 50 mcg PO DAILY 02/03/19 02/03/19 History magnesium hydroxide [Milk of 30 ml PO UD PRN 02/03/19 02/03/19 History Magnesia] multivitamin 1 tab PO DAILY 02/03/19 02/03/19 History pantoprazole [Protonix] 40 mg PO BID 02/03/19 02/03/19 History potassium chloride [Klor-Con M20] 20 meq PO DAILY 02/03/19 02/03/19 History sennosides-docusate sodium 1 tab-cap PO DAILY 02/03/19 02/03/19 History [Senokot-S] tamsulosin [Flomax] 0.4 mg PO DAILY 02/03/19 02/03/19 History vitamin B [id number]-A-[id number]-zinc cit 1 tab PO DAILY 02/03/19 02/03/19 History Past Med/Surg History Medical History Altered mental status Anemia (Acute) Cardiomegaly CKD (chronic kidney disease) GI bleed (Acute) Left acute arterial ischemic stroke, MCA (middle cerebral artery) Pneumonia of both lower lobes Sepsis Surgical History No pertinent past surgical history Family History Other Family history non-contributory Social History Preferred Language: Bahraini Communication Ability: Effective Marine Surveyor Required: No Beliefs That Will Affect Care: None Current Living Situation: Jail Feels Safe at Home: Yes Smoking Status: Former smoker Hx Alcohol Use: No Hx Substance Use: No Review of Systems Review of Systems: Unobtainable due to cognitive status Physical Exam Physical Exam: General: Frail, elderly male resting in bed, chronically ill in appearance, arousable to voice and oriented only to self. Attempts to answer some questions but responses are largely incomprehensible. Skin: warm, dry, intact, left hip bruising and edema HEENT: NC/AT, PERRL, anicteric sclera, conjunctiva without injection, external ear normal to inspection and nontender, nares patent, dry mucus membranes with small white plaques on tongue and roof of mouth, dentition intact, neck supple, trachea midline, no LAD, no thyromegaly, no JVD Heart: +S1/S2, regular, bradycardic, no m/r/g Lungs: equal air entry bilaterally, coarse breath sounds with faint end expiratory wheezing throughout, significant upper airway noise and secretions Abd: +BS, soft, NT/ND, no masses/organomegaly/ascites, + suprapubic tenderness Ext: warm, 2+ pulses in UE/LE bilaterally, no clubbing/cyanosis, + edema of left hip Neuro: Unable to perform proper exam secondary to patient's mental status. He is somnolent but arousable oriented only to self, does not follow commands or answer questions appropriately Results & Data Vital Signs (Past 12 Hours) Vital Signs Temp Pulse Pulse Resp BP BP Pulse Ox 02/04/19 00:01 90 21 100/45 L 98 02/03/19 23:45 87 21 85/56 L 97 02/03/19 23:34 34.6 C L 02/03/19 23:25 78 19 97/72 L 93 02/03/19 23:07 73 21 96 02/03/19 23:06 116/72 02/03/19 23:00 67 20 97 02/03/19 22:32 97 02/03/19 22:29 97 02/03/19 22:15 34.7 C L 88 20 112/84 97 Laboratory Results Lab Results 1102/03/19 02/03/19 Range/Units 22:20 22:20 22:20 WBC 5.46 (4.8-10.8) K/uL RBC 2.77 L (4.7-6.1) M/uL Hgb 8.3 L (14.0-18.0) g/dL Hct 27.8 L (42-52) % MCV 100.4 H (80-100) fL MCH 30.0 (25-34) pg MCHC 29.9 L (32-36) g/dL RDW Std Deviation 80.4 H (36.4-46.3) fL RDW Coeff of Elaine 22.3 H (11.5-14.5) % Plt Count 145 (130-400) K/uL MPV 10.0 (7.4-10.4) fL Immature Gran % (Auto) 0.5 % Neut % (Auto) 87.4 % Lymph % (Auto) 7.9 % [place] % (Auto) 2.9 % Eos % (Auto) 1.1 % Baso % (Auto) 0.2 % Immature Gran # (Auto) 0.03 H (0.00-0.02) K/uL Neut # (Auto) 4.77 (1.4-6.5) K/uL Lymph # (Auto) 0.43 L (1.2-3.4) K/uL [place] # (Auto) 0.16 (0.11-0.59) K/uL Eos # (Auto) 0.06 (0-0.5) K/uL Baso # (Auto) 0.01 (0-0.2) K/uL Anisocytosis Present Acanthocytes (Spur) 1+ PT 10.9 (9.0-12.0) Seconds INR 1.1 (0.9-1.1) APTT 30.8 (21.0-31.0) Seconds PTT Ratio 1.1 Sodium 152 H (136-145) mmol/L Potassium 4.0 (3.5-5.1) mmol/L Chloride 123 H (98-107) mmol/L Carbon Dioxide 25 (21-32) mmol/L Anion Gap 4.0 (3-11) BUN 17 (7-18) mg/dl Creatinine 1.11 (0.6-1.4) mg/dl Est Cr Clr Drug Dosing 47.0 ml/min Est GFR ( Amer) 68.8 Est GFR (Non-Af Amer) 59.4 BUN/Creatinine Ratio 15.6 (10-20) Glucose 120 H (70-99) mg/dl Lactate (0.4-2.0) mmol/L Calcium 8.4 L (8.5-10.1) mg/dl Total Bilirubin 0.5 (0.2-1) mg/dl AST 25 (15-37) U/L ALT 23 (12-78) U/L Alkaline Phosphatase 115 (45-117) U/L Troponin I < 0.015 (0-0.045) ng/ml NT-Pro-B Natriuret Pep 2471 H (0-1800) pg/ml Total Protein 6.3 L (6.4-8.2) gm/dl Albumin 1.9 L (3.4-5.0) gm/dl Globulin 4.4 H (2.5-4.0) gm/dl Albumin/Globulin Ratio 0.4 L (0.9-2) 02/03/19 Range/Units 22:48 WBC (4.8-10.8) K/uL RBC (4.7-6.1) M/uL Hgb (14.0-18.0) g/dL Hct (42-52) % MCV (80-100) fL MCH (25-34) pg MCHC (32-36) g/dL RDW Std Deviation (36.4-46.3) fL RDW Coeff of Elaine (11.5-14.5) % Plt Count (130-400) K/uL MPV (7.4-10.4) fL Immature Gran % (Auto) % Neut % (Auto) % Lymph % (Auto) % [place] % (Auto) % Eos % (Auto) % Baso % (Auto) % Immature Gran # (Auto) (0.00-0.02) K/uL Neut # (Auto) (1.4-6.5) K/uL Lymph # (Auto) (1.2-3.4) K/uL [place] # (Auto) (0.11-0.59) K/uL Eos # (Auto) (0-0.5) K/uL Baso # (Auto) (0-0.2) K/uL Anisocytosis Acanthocytes (Spur) PT (9.0-12.0) Seconds INR (0.9-1.1) APTT (21.0-31.0) Seconds PTT Ratio Sodium (136-145) mmol/L Potassium (3.5-5.1) mmol/L Chloride (98-107) mmol/L Carbon Dioxide (21-32) mmol/L Anion Gap (3-11) BUN (7-18) mg/dl Creatinine (0.6-1.4) mg/dl Est Cr Clr Drug Dosing ml/min Est GFR ( Amer) Est GFR (Non-Af Amer) BUN/Creatinine Ratio (10-20) Glucose (70-99) mg/dl Lactate 2.4 H* (0.4-2.0) mmol/L Calcium (8.5-10.1) mg/dl Total Bilirubin (0.2-1) mg/dl AST (15-37) U/L ALT (12-78) U/L Alkaline Phosphatase (45-117) U/L Troponin I (0-0.045) ng/ml NT-Pro-B Natriuret Pep (0-1800) pg/ml Total Protein (6.4-8.2) gm/dl Albumin (3.4-5.0) gm/dl Globulin (2.5-4.0) gm/dl Albumin/Globulin Ratio (0.9-2) Diagnostic Findings XR chest 1V portable CLINICAL HISTORY: Sepsis dyspnea COMPARISON STUDY: 01/27/2019 FINDINGS: Findings of pulmonary edema. This is increased in prominence from the prior study. Mild increase in bilateral pleural effusions. IMPRESSION: Findings of progressive pulmonary edema/congestive heart failure. Mildly progressive bilateral pleural effusions. The above report was generated using voice recognition software. It may contain grammatical, syntax or spelling errors. Electronically signed by: Jadon Morales M.D. 02/03/2019 11:00 PM Dictated: 02/03/192258 Transcribed: 02/03/192258 ECG Additional Comments: Study shows atrial fibrillation at 93 bpm, normal axis, QRS = 92, QTc = 494, T wave inversions present in 2, 3, aVF as well as across anterior leads Code Status & VTE Plan Code Status DNR/DNI. Per discharge summary 02/01/2019Since patient does not have POA and he is unable of making his own decisions and terminally sick with terminal dysphagia, he has been made a DNR by 2 physicians. Once when patient returns to the [facility] he will undergo the process of obtaining legal guardianship, it would be safe to say that comfort measures should be given consideration once he has a guardian to help him make those decisions. VTE Prophylaxis Plan VTE Prophylaxis will be ordered: No PG Care Time/CCT Total # of Minutes Spent Total Time Spent with Patient: Total time spent is greater than 50% in coordination of care (as documented) at patient's floor/unit and/or counseling patient: (1) Hypothermia Encounter type: initial encounter Qualified Code(s): T68.XXXA - Hypothermia, initial encounter (2) Anemia Anemia type: unspecified type Qualified Code(s): D64.9 - Anemia, unspecified (3) Aspiration pneumonia Aspiration pneumonia type: unspecified Laterality: bilateral Lung location: lower lobe of lung Qualified Code(s): J69.0 - Pneumonitis due to inhalation of food and vomit (4) Failure to thrive Failure to thrive age range: in adult Qualified Code(s): R62.7 - Adult failure to thrive (5) Hypotension Hypotension type: unspecified hypotension type Qualified Code(s): I95.9 - Hypotension, unspecified (6) CKD (chronic kidney disease) Chronic kidney disease stage: unspecified stage Qualified Code(s): N18.9 - Chronic kidney disease, unspecified (7) Atrial fibrillation Atrial fibrillation type: unspecified Qualified Code(s): I48.91 - Unspecified atrial fibrillation (8) Hypothyroid Hypothyroidism type: unspecified Qualified Code(s): E03.9 - Hypothyroidism, unspecified
--- NOTE | 2019-02-04 00:29 | Emergency Department Note ---
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 Nursing states the patient is from [facility]. Nursing states the patient's O2 sat dropped down to the mid 80s earlier today. Nursing states [facility] put him on 2L nasal cannula and his O2 sat immediately went up to the 90s, but the patient wanted to come to the ED to be evaluated. Nursing notes the patient is normally not on oxygen. I did asked the patient several questions and he ignored them. When asked if he can hear me he responded yes. He then stated "do not ask me how i feel again". When asked if he was SOB he replied no. When asked further questions he stated "you guys are stupid". He would not answer any further questions. HPI is limited secondary to patient cooperation. Home Medications Home Medications Medication Instructions Recorded Confirmed Type acetaminophen 650 mg PO Q6H PRN 02/03/19 02/03/19 History amoxicillin-pot clavulanate 10 ml PO Q8 02/03/19 02/03/19 History [Augmentin] atorvastatin [Lipitor] 40 mg PO HS 02/03/19 02/03/19 History bisacodyl [Dulcolax (bisacodyl)] 10 mg NJ DAILY PRN 02/03/19 02/03/19 History cholecalciferol (vitamin D3) 2,000 unit PO DAILY 02/03/19 02/03/19 History [Vitamin D3] ipratropium-albuterol 0 ml INHALATION Q4 PRN 02/03/19 02/03/19 History levothyroxine [Synthroid] 50 mcg PO DAILY 02/03/19 02/03/19 History magnesium hydroxide [Milk of 30 ml PO UD PRN 02/03/19 02/03/19 History Magnesia] multivitamin 1 tab PO DAILY 02/03/19 02/03/19 History pantoprazole [Protonix] 40 mg PO BID 02/03/19 02/03/19 History potassium chloride [Klor-Con M20] 20 meq PO DAILY 02/03/19 02/03/19 History sennosides-docusate sodium 1 tab-cap PO DAILY 02/03/19 02/03/19 History [Senokot-S] tamsulosin [Flomax] 0.4 mg PO DAILY 02/03/19 02/03/19 History vitamin B lykhbm-[id number]-GY-[id number] cit 1 tab PO DAILY 02/03/19 02/03/19 History Allergies Allergy/AdvReac Type Severity Reaction Status Date / Time No Known Allergies Allergy Unknown Verified 01/23/19 12:29 Past Med/Surg History Medical History Altered mental status Anemia (Acute) Cardiomegaly CKD (chronic kidney disease) GI bleed (Acute) Left acute arterial ischemic stroke, MCA (middle cerebral artery) Pneumonia of both lower lobes Sepsis Surgical History No pertinent past surgical history Family History Other Family history non-contributory Social History Preferred Language: [place] Communication Ability: Effective Solar Electric Installer Required: No Beliefs That Will Affect Care: None Current Living Situation: Long-Term Feels Safe at Home: Yes Smoking Status: Former smoker Hx Alcohol Use: No Hx Substance Use: No Review of Systems Other (Limited due to lack of cooperation) Physical Exam Vital Signs Vital Signs - 24 hr 02/03/19 22:15 02/03/19 22:29 02/03/19 22:32 Temperature 34.7 C L Temperature Source Rectal Pulse Rate 88 Pulse Rate [Finger] Pulse Rate from SpO2 Sensor Respiratory Rate 20 Respiratory Effort / Characteristics Blood Pressure 112/84 Blood Pressure [Left Arm] Blood Pressure Mean 93 Blood Pressure Mean [Left Arm] Pulse Oximetry 97 97 97 Oxygen Delivery Method Room Air Room Air Room Air Oxygen Flow Rate Sepsis Recent Fever Within 48 Hours No Sepsis Action Taken by Nursing No Action Required 02/03/19 23:00 02/03/19 23:06 02/03/19 23:07 Temperature Temperature Source Pulse Rate Pulse Rate [Finger] 67 73 Pulse Rate from SpO2 Sensor Respiratory Rate 20 21 Respiratory Effort / Characteristics Non-Labored Blood Pressure Blood Pressure [Left Arm] 116/72 Blood Pressure Mean Blood Pressure Mean [Left Arm] 86 Pulse Oximetry 97 96 Oxygen Delivery Method Room Air Room Air Oxygen Flow Rate Sepsis Recent Fever Within 48 Hours Sepsis Action Taken by Nursing 02/03/19 23:25 02/03/19 23:34 02/03/19 23:45 Temperature 34.6 C L Temperature Source Rectal Pulse Rate 78 87 Pulse Rate [Finger] Pulse Rate from SpO2 Sensor 80 89 Respiratory Rate 19 21 Respiratory Effort / Characteristics Blood Pressure 97/72 L 85/56 L Blood Pressure [Left Arm] Blood Pressure Mean 78 60 Blood Pressure Mean [Left Arm] Pulse Oximetry 93 97 Oxygen Delivery Method Room Air Nasal Cannula Oxygen Flow Rate 2 Sepsis Recent Fever Within 48 Hours Sepsis Action Taken by Nursing 02/04/19 00:01 Temperature Temperature Source Pulse Rate 90 Pulse Rate [Finger] Pulse Rate from SpO2 Sensor 76 Respiratory Rate 21 Respiratory Effort / Characteristics Blood Pressure 100/45 L Blood Pressure [Left Arm] Blood Pressure Mean 63 Blood Pressure Mean [Left Arm] Pulse Oximetry 98 Oxygen Delivery Method Nasal Cannula Oxygen Flow Rate 2 Sepsis Recent Fever Within 48 Hours Sepsis Action Taken by Nursing Constitutional: Vital signs reviewed. Hypothermic. Eyes: Pupils are equal round reactive to light. Conjunctiva are noninjected. ENT: Pharynx is clear without erythema or exudate. Mucous membranes are moist. Neck supple without meningeal signs. Respiratory: Breath sounds are equal bilaterally. Diffuse rhonchi bilaterally. Cardiovascular: Regular rate. Irregularly irregular rhythm. No rubs or gallops. GI: Soft, nondistended and nontender. Bowel sounds are present. Musculoskeletal: No peripheral edema. No lower extremity tenderness. Integumentary: No cyanosis. Neurological: The patient is somnolent but easily rousable. Psychiatric: Unable to assess. Course Course 2225: The patient was evaluated in room A2, and a complete history and physical examination were performed. 2051: I reevaluated the patient. He is sleeping. He is slightly tachypneic. His pulse ox is 94. 2316: I told the patient about his labs and imaging results. I recommended hospitalization and he starred at me and did not answer. 0: I discussed the patient's case with Dr. Parra - [facility] Hospitalist. She will evaluate the patient for further management Administered Medications Discontinued Medications Albuterol (Duoneb) 3 ml NEB NOW STA Stop: 02/03/19 22:30 Last Admin: 02/03/19 23:06 Dose: 3 ml Documented by: [id number] Medical Decision Making Differential Diagnosis Differential Diagnosis includes but is not limited to sepsis, pneumonia, pleural effusion, empyema, and emphysema. Medical Records Attestation: I reviewed the patient's medical records. Patient was discharged on February 01 for aspiration pneumonia. He was made DNR and was discharged on Augmentin. Home Medications Current Medication List: was personally reviewed by me Laboratory Data Attestation: I reviewed the patient's lab results. Result diagrams: 02/03/19 22:20 02/03/19 22:20 Lab Results 02/03/19 02/03/19 02/03/19 Range/Units 22:20 22:20 22:20 WBC 5.46 (4.8-10.8) K/uL RBC 2.77 L (4.7-6.1) M/uL Hgb 8.3 L (14.0-18.0) g/dL Hct 27.8 L (42-52) % MCV 100.4 H (80-100) fL MCH 30.0 (25-34) pg MCHC 29.9 L (32-36) g/dL RDW Std Deviation 80.4 H (36.4-46.3) fL RDW Coeff of Elaine 22.3 H (11.5-14.5) % Plt Count 145 (130-400) K/uL MPV 10.0 (7.4-10.4) fL Immature Gran % (Auto) 0.5 % Neut % (Auto) 87.4 % Lymph % (Auto) 7.9 % [place] % (Auto) 2.9 % Eos % (Auto) 1.1 % Baso % (Auto) 0.2 % Immature Gran # (Auto) 0.03 H (0.00-0.02) K/uL Neut # (Auto) 4.77 (1.4-6.5) K/uL Lymph # (Auto) 0.43 L (1.2-3.4) K/uL [place] # (Auto) 0.16 (0.11-0.59) K/uL Eos # (Auto) 0.06 (0-0.5) K/uL Baso # (Auto) 0.01 (0-0.2) K/uL Anisocytosis Present Acanthocytes (Spur) 1+ PT 10.9 (9.0-12.0) Seconds INR 1.1 (0.9-1.1) APTT 30.8 (21.0-31.0) Seconds PTT Ratio 1.1 Sodium 152 H (136-145) mmol/L Potassium 4.0 (3.5-5.1) mmol/L Chloride 123 H (98-107) mmol/L Carbon Dioxide 25 (21-32) mmol/L Anion Gap 4.0 (3-11) BUN 17 (7-18) mg/dl Creatinine 1.11 (0.6-1.4) mg/dl Est Cr Clr Drug Dosing 47.0 ml/min Est GFR ( Amer) 68.8 Est GFR (Non-Af Amer) 59.4 BUN/Creatinine Ratio 15.6 (10-20) Glucose 120 H (70-99) mg/dl Lactate (0.4-2.0) mmol/L Calcium 8.4 L (8.5-10.1) mg/dl Total Bilirubin 0.5 (0.2-1) mg/dl AST 25 (15-37) U/L ALT 23 (12-78) U/L Alkaline Phosphatase 115 (45-117) U/L Troponin I < 0.015 (0-0.045) ng/ml NT-Pro-B Natriuret Pep 2471 H (0-1800) pg/ml Total Protein 6.3 L (6.4-8.2) gm/dl Albumin 1.9 L (3.4-5.0) gm/dl Globulin 4.4 H (2.5-4.0) gm/dl Albumin/Globulin Ratio 0.4 L (0.9-2) 02/03/19 Range/Units 22:48 WBC (4.8-10.8) K/uL RBC (4.7-6.1) M/uL Hgb (14.0-18.0) g/dL Hct (42-52) % MCV (80-100) fL MCH (25-34) pg MCHC (32-36) g/dL RDW Std Deviation (36.4-46.3) fL RDW Coeff of Elaine (11.5-14.5) % Plt Count (130-400) K/uL MPV (7.4-10.4) fL Immature Gran % (Auto) % Neut % (Auto) % Lymph % (Auto) % [place] % (Auto) % Eos % (Auto) % Baso % (Auto) % Immature Gran # (Auto) (0.00-0.02) K/uL Neut # (Auto) (1.4-6.5) K/uL Lymph # (Auto) (1.2-3.4) K/uL [place] # (Auto) (0.11-0.59) K/uL Eos # (Auto) (0-0.5) K/uL Baso # (Auto) (0-0.2) K/uL Anisocytosis Acanthocytes (Spur) PT (9.0-12.0) Seconds INR (0.9-1.1) APTT (21.0-31.0) Seconds PTT Ratio Sodium (136-145) mmol/L Potassium (3.5-5.1) mmol/L Chloride (98-107) mmol/L Carbon Dioxide (21-32) mmol/L Anion Gap (3-11) BUN (7-18) mg/dl Creatinine (0.6-1.4) mg/dl Est Cr Clr Drug Dosing ml/min Est GFR ( Amer) Est GFR (Non-Af Amer) BUN/Creatinine Ratio (10-20) Glucose (70-99) mg/dl Lactate 2.4 H* (0.4-2.0) mmol/L Calcium (8.5-10.1) mg/dl Total Bilirubin (0.2-1) mg/dl AST (15-37) U/L ALT (12-78) U/L Alkaline Phosphatase (45-117) U/L Troponin I (0-0.045) ng/ml NT-Pro-B Natriuret Pep (0-1800) pg/ml Total Protein (6.4-8.2) gm/dl Albumin (3.4-5.0) gm/dl Globulin (2.5-4.0) gm/dl Albumin/Globulin Ratio (0.9-2) Imaging Data Radiologist's Impression: Radiology results as stated below per my review and the radiologist's interpretation: XR chest 1V portable CLINICAL HISTORY: Sepsis dyspnea COMPARISON STUDY: 01/27/2019 FINDINGS: Findings of pulmonary edema. This is increased in prominence from the prior study. Mild increase in bilateral pleural effusions. IMPRESSION: Findings of progressive pulmonary edema/congestive heart failure. Mildly progressive bilateral pleural effusions. The above report was generated using voice recognition software. It may contain grammatical, syntax or spelling errors. Electronically signed by: Jadon Morales M.D. 02/03/2019 11:00 PM ECG Data Attestation: I personally reviewed and interpreted this ECG as follows: Indication: + SOB/dyspnea Rate (beats per minute): 93 Rhythm: + atrial fibrillation ECG Intervals/blocks: + Prolonged QT ECG ST segments: + T-wave inversions (anteriorly, inferiorly, and laterally); no ST elevation ECG Findings: no PVCs Comparison ECG Date: from (01/27/19) Change: no significant change Blood Pressure Blood Pressure Findings: Elevated blood pressure Blood Pressure Disposition: further management by hospitalist YUMIKO Ruiz I did evaluate the patient as noted above. History is very limited as the patient is not cooperative and will not answer any questions. The nurse found him to be hypothermic. He was placed on a Mirian hugger. IV access was established. The patient was placed on a continuous inspector eyeglass frames. Cardiac monitoring: Indication: Hypoxemia and hypothermia Rate and rhythm: Normal sinus rhythm rate of 93. No dysrhythmia. I did order and personally review the patient's 12-lead EKG as described above. He has a prolonged QT interval. He has no acute ischemic changes. He does have chronic T wave inversions as described above. I did order and personally reviewed the images of the patient's chest x-ray as described above. Chest x- ray demonstrates worsening infiltrates as well as pleural effusions. The radiologist notes congestive changes but on his previous visit all his x-ray showed congestive changes and the hospitalist and viscosity inspector felt that this was aspiration pneumonia. I did order a urine analysis. I did order and review the patient's blood work as noted in the electronic medical record. CBC reveals a hemoglobin of 8.3 which is not significantly changed from a few days ago. His white count is not elevated. He has continued hypernatremia with sodium of 152. His lactate is elevated. I did treat the patient with a DuoNeb. I did reassess the patient. He has continued rhonchi. He is saturating in the high 90s on room air. He will be hospitalized for further evaluation and care. I did discuss case with the hospitalist and foster care case manager. Impression & Plan Hypothermia, Anemia, Aspiration pneumonia, Bilateral pleural effusion, Hypernatremia Discharge Plan Visit Data Chief Complaint: Respiratory Problems Stated Complaint: respiratory difficulty ED Provider: Stephon Malhotra Discharge Problem: Hypothermia, Anemia, Aspiration pneumonia, Bilateral pleural effusion, Hypernatremia Patient Disposition: Being Evaluated by Hospitalist Forms Stand Alone Forms: [facility] Prescriptions Prescriptions: No Action multivitamin Tablet 1 tab PO DAILY RF: 0 atorvastatin [Lipitor] 40 mg tablet 40 mg PO HS RF: 0 potassium chloride [Klor-Con M20] 20 mEq tablet,ER particles/crystals 20 meq PO DAILY RF: 0 levothyroxine [Synthroid] 50 mcg tablet 50 mcg PO DAILY RF: 0 cholecalciferol (vitamin D3) [Vitamin D3] 2,000 unit Tablet 2,000 unit PO DAILY RF: 0 acetaminophen 325 mg Tablet 650 mg PO Q6H PRN (Reason: Fever Or Pain) RF: 0 ipratropium-albuterol 0.5 mg-3 mg(2.5 mg base)/3 mL solution for nebulization 0 ml INHALATION Q4 PRN (Reason: Shortness Of Breath Or Wheezing) RF: 0 amoxicillin-pot clavulanate [Augmentin] 250-62.5 mg/5 mL suspension for reconstitution 10 ml PO Q8 RF: 0 sennosides-docusate sodium [Senokot-S] 8.6-50 mg Tablet 1 tab-cap PO DAILY RF: 0 magnesium hydroxide [Milk of Magnesia] 400 mg/5 mL Suspension 30 ml PO UD PRN (Reason: Constipation) RF: 0 tamsulosin [Flomax] 0.4 mg capsule 0.4 mg PO DAILY RF: 0 bisacodyl [Dulcolax (bisacodyl)] 10 mg Suppository 10 mg NJ DAILY PRN (Reason: Constipation) RF: 0 pantoprazole [Protonix] 40 mg Tablet,Delayed Release (Dr/Ec) 40 mg PO BID RF: 0 vitamin B tbfvhi-H-CO-zinc cit 0.8-15 mg Tablet 1 tab PO DAILY RF: 0 Referrals Referrals: [facility] [Primary Care Provider] - Discharge Problem: Hypothermia Qualifiers: Encounter type: initial encounter Qualified Code(s): T68.XXXA - Hypothermia, initial encounter Anemia Qualifiers: Anemia type: unspecified type Qualified Code(s): D64.9 - Anemia, unspecified Aspiration pneumonia Qualifiers: Aspiration pneumonia type: unspecified Laterality: bilateral Lung location: lower lobe of lung Qualified Code(s): J69.0 - Pneumonitis due to inhalation of food and vomit The scribe's documentation has been prepared under my direction and personally reviewed by me in its entirety. I confirm that the note above accurately reflects all work, treatment, procedures, and medical decision making performed by me.
[2019-02-04] MEDS ORDERED: bisacodyL 10 MG SUPP PR PRN (01:27)
[2019-02-04] MEDS ORDERED: ACETAMINOPHEN 325 MG TAB PO PRN (01:27)
[2019-02-04] MEDS ORDERED: PIPERACILL/TAZOBAC CONSULT ACTIVE PRN (01:27)
[2019-02-04] MEDS ORDERED: ALBUT/IPRATROP 3MG/0.5MG NEB 3 ML VIAL NEB PRN (01:27)
[2019-02-04] MEDS ORDERED: MAGNESIUM HYDROXIDE SUSP 30 ML UDC PO PRN (01:27)
[2019-02-04] MEDS ORDERED: ONDANSETRON INJ 2 MG/ML 2 ML VIAL IV PRN (01:27)
[2019-02-04] MEDS ORDERED: ALBUTEROL 0.083% NEBU SOLN 3 ML VIAL INH PRN (01:37)
[2019-02-04] MEDS ORDERED: PIPERACILLIN/TAZOBACTAM 4.5 GM in DEXTROSE 5% 100 ML IV ONE (01:45)
[2019-02-04 02:00] LABS: Phosphorus 2.5 mg/dl (2.5-4.9)
[2019-02-04] MEDS: ALBUMIN 25% 50 ML IV SCH ×2 (02:42→03:30)
[2019-02-04 06:17] LABS: Calcium 8.5 mg/dl (8.5-10.1); Creatinine Clr Calc Pharmacy 47.8 ml/min; Est GFR (African American) 73.6; Est GFR (Non-African American) 63.5
[2019-02-04] MEDS: LEVOTHYROXINE SODIUM 50 MCG TABLET PO SCH (06:23)
[2019-02-04] MEDS ORDERED: INFLUENZA VACCINE HIGH DOSE 65+ 0.5 ML SYR IM ONE (08:00)
[2019-02-04] MEDS ORDERED: PNEUMOCOCCAL ADMINISTRATION CHARGE ONE (08:00)
[2019-02-04] MEDS ORDERED: PNEUMOCOCCAL POLYSACCHARIDES 25 MCG/0.5 ML VIAL/SYR IM ONE (08:00)
[2019-02-04] MEDS ORDERED: INFLUENZA ADMINISTRATION CHARGE ONE (08:00)
[2019-02-04] MEDS: PANTOprazole 40 MG TAB PO SCH ×3 (08:01→20:58)
[2019-02-04] MEDS: DOCUSATE SODIUM/SENNA 50/8.6MG TAB PO SCH (08:01)
[2019-02-04] MEDS: TAMSULOSIN HCL 0.4 MG CAP PO SCH (08:01)
[2019-02-04] MEDS: PIPERACILLIN/TAZOBACTAM 3.375 GM in DEXTROSE 5% 100 ML IV SCH ×2 (09:59→18:23)
--- NOTE | 2019-02-04 13:11 | History & Physical Bridge Note ---
Date of Service February 04, 2019 History & Physical Bridge Note Fairly unresponsive today. Looks forward. Kind of grunts. Likely recurrent aspiration event. Now DNR/DNI. Continue current management.
[2019-02-05] MEDS: PIPERACILLIN/TAZOBACTAM 3.375 GM in DEXTROSE 5% 100 ML IV SCH ×3 (00:25→18:45)
[2019-02-05] MEDS: LEVOTHYROXINE SODIUM 50 MCG TABLET PO SCH (05:33)
[2019-02-05 06:51] LABS: Hematocrit (blood only) 27.3 % (42-52); Hemoglobin 8.2 g/dL (14.0-18.0); Mean Corpuscular Hemoglobin 30.8 pg (25-34); Mean Corpuscular Volume 102.6 fL (80-100); Mean Platelet Volume 9.9 fL (7.4-10.4); Platelet Count 146 K/uL (130-400); RDW Coefficient of Variation 22.2 % (11.5-14.5); RDW Standard Deviation 81.2 fL (36.4-46.3); Red Blood Count 2.66 M/uL (4.7-6.1); White Blood Count 5.13 K/uL (4.8-10.8)
[2019-02-05 06:59] LABS: Acanthocytes 1+; Anisocytosis Present; Basophils # (auto) 0.04 K/uL (0-0.2); Basophils % (auto) 0.8 %; Eosinophils # (auto) 0.09 K/uL (0-0.5); Eosinophils % (auto) 1.8 %; Giant Platelets 1+; Hypochromasia Present; Immature Granulocytes # (auto) 0.02 K/uL (0.00-0.02); Immature Granulocytes % (auto) 0.4 %; Lymphocytes # (auto) 0.55 K/uL (1.2-3.4); Lymphocytes % (auto) 10.7 %; Monocytes # (auto) 0.39 K/uL (0.11-0.59); Monocytes % (auto) 7.6 %; Neutrophils # (auto) 4.04 K/uL (1.4-6.5); Neutrophils % (auto) 78.7 %
[2019-02-05 07:11] LABS: BUN Creatinine Ratio 13.2 (10-20); Calcium 8.5 mg/dl (8.5-10.1); Creatinine Clr Calc Pharmacy 43.7 ml/min; Est GFR (African American) 65.9; Est GFR (Non-African American) 56.9; Magnesium 1.9 mg/dl (1.8-2.4); Phosphorus 2.5 mg/dl (2.5-4.9); Potassium 4.1 mmol/L (3.5-5.1)
[2019-02-05] MEDS: PANTOprazole 40 MG TAB PO SCH ×2 (10:33→21:34)
[2019-02-05] MEDS: DOCUSATE SODIUM/SENNA 50/8.6MG TAB PO SCH (10:33)
[2019-02-05] MEDS: TAMSULOSIN HCL 0.4 MG CAP PO SCH (10:33)
--- NOTE | 2019-02-05 11:48 | Hospitalist Progress Note ---
Date of Service February 05, 2019 Assessment & Plan (1) Aspiration pneumonia: Patient with chronic aspiration. He was evaluated by speech therapy during his last hospital stay. Recommendations for thick nectar for comfort solids and liquids, crushed medications, supervised meals, patient to be fully alert and upright during mealtime, medications to be given in a carrier, single bites with small sips and slow rate and no straws. Patient continues to aspirate. - Continue Zosyn Strict aspiration precautions as above Duo nebs and albuterol as needed Supplemental oxygen as needed Palliative care consult (2) Hypothermia: Patient with history of the same. Possibly secondary to sepsis in the setting of elevated lactate and borderline hypotension. Follow cultures Zosyn as above Mirian mauricio (3) Anemia: Patient with recent upper GI bleed resulting in acute blood loss anemia. Found to have 4 non-bleeding duodenal ulcers on EGD during previous hospital stay. Presently with Hgb = 8.3 and HCT = 27.8. Some blood noted on wiping by the ER staff. Continue twice daily PPI Continue to monitor CBC Transfuse for active bleed or hemoglobin less than 7 (4) Hypernatremia: Sodium = 152. Same as previous admission. Per report, patient with poor p.o. intake as well as chronic aspiration and dysphasia. Monitor sodium; consider 1/2 normal saline. (5) Failure to thrive: As above, patient with multiple underlying medical comorbidities and overall poor outcome. Not improving. Palliative care as above (6) Encephalopathy acute: Patient with baseline dementia, suspect some degree of acute metabolic encephalopathy. He became agitated during his prior hospitalization. Was evaluated by palliative care as well as psychiatry. We will continue Zyprexa 2.5 mg twice daily Delirium prevention strategies with frequent orientation Avoid delirium provoking medications such as benzos/anticholinergics Treatment of underlying medical conditions as above (7) Hypotension: Blood pressure presently 100/45. He appears volume contracted on physical exam, possible infectious process contributing as well. Albumin as above (8) CKD (chronic kidney disease): Patient with baseline creatinine of approximately 1.4. BUN currently 17, creatinine currently 1.17 Avoid nephrotoxic agents, provide renal dosing were necessary Stable today at 1.15. (9) Atrial fibrillation: History of atrial fibrillation. Slow ventricular response. Was previously on digoxin, now being held. Telemetry monitoring Continue to hold digoxin secondary to bradycardia, hold anticoagulation secondary to recent GI bleed (10) Hypothyroid: Chronic. TSH = 7.3 during previous admission. Continue Synthroid 50 mcg daily. Subjective Much more alert and talkative today. AAOx0, saying he doesn't think he has a full name. Reports no fevers/chills, chest pain, shortness of breath, abdominal pain, nausea, or vomiting. Review of Systems Review of Systems: Unobtainable due to cognitive status Physical Exam Constitutional: WD/WN, vitals as above Eyes: EOM intact bilaterally; no conjunctival abnormality ENMT: external ear and nose normal, oropharynx normal Neck: trachea midline, no thyromegaly normal visual inspection Respiratory: + labored breathing; no respiratory distress Auscultation: + diminished lung sounds, + rales and + rhonchi; no wheezes Cardiovascular: RRR, no murmur, no edema Gastrointestinal (Abdomen): Inspection/Auscultation: abdomen normal to inspection; abdomen not distended Musculoskeletal: no cyanosis or clubbing, extremities motor strength 5/5 Skin: no rashes, warm and dry Neurologic: moves all extremities and awake Psychiatric: Orientation: alert; + not oriented to person and + uncooperative Results & Data Vital Signs (Past 12 Hours) Vital Signs Temp Pulse Pulse Resp BP Pulse Ox Pulse Ox 02/05/19 11:02 36.2 C L 88 20 112/79 96 02/05/19 07:32 36.3 C L 81 21 131/62 97 02/05/19 02:34 36.1 C L 86 20 112/90 94 02/05/19 01:27 93 02/04/19 23:48 36.5 C 91 H 20 119/84 91 PG Care Time/CCT Total # of Minutes Spent Total Time Spent with Patient: Total time spent is greater than 50% in budget coordinator rdination of care (as documented) at patient's floor/unit and/or counseling patient: (1) Anemia Anemia type: unspecified type Qualified Code(s): D64.9 - Anemia, unspecified (2) Atrial fibrillation Atrial fibrillation type: unspecified Qualified Code(s): I48.91 - Unspecified atrial fibrillation (3) Failure to thrive Failure to thrive age range: in adult Qualified Code(s): R62.7 - Adult failure to thrive (4) Hypothermia Encounter type: initial encounter Qualified Code(s): T68.XXXA - Hypothermia, initial encounter (5) Hypothyroid Hypothyroidism type: unspecified Qualified Code(s): E03.9 - Hypothyroidism, unspecified (6) CKD (chronic kidney disease) Chronic kidney disease stage: unspecified stage Qualified Code(s): N18.9 - Chronic kidney disease, unspecified (7) Aspiration pneumonia Aspiration pneumonia type: unspecified Laterality: bilateral Lung location: lower lobe of lung Qualified Code(s): J69.0 - Pneumonitis due to inhalation of food and vomit (8) Hypotension Hypotension type: unspecified hypotension type Qualified Code(s): I95.9 - Hypotension, unspecified
[2019-02-06] MEDS: PIPERACILLIN/TAZOBACTAM 3.375 GM in DEXTROSE 5% 100 ML IV SCH ×3 (00:15→16:40)
[2019-02-06] MEDS: LEVOTHYROXINE SODIUM 50 MCG TABLET PO SCH (06:08)
[2019-02-06 06:59] LABS: Hematocrit (blood only) 26.6 % (42-52); Hemoglobin 8.1 g/dL (14.0-18.0); Mean Corpuscular Hgb Conc 30.5 g/dL (32-36); Mean Corpuscular Volume 101.9 fL (80-100); Mean Platelet Volume 10.1 fL (7.4-10.4); Platelet Count 161 K/uL (130-400); RDW Coefficient of Variation 21.9 % (11.5-14.5); RDW Standard Deviation 80.3 fL (36.4-46.3); Red Blood Count 2.61 M/uL (4.7-6.1); White Blood Count 4.26 K/uL (4.8-10.8)
[2019-02-06 07:38] LABS: BUN Creatinine Ratio 13.2 (10-20); Calcium 8.8 mg/dl (8.5-10.1); Creatinine Clr Calc Pharmacy 43.7 ml/min; Est GFR (African American) 64.6; Est GFR (Non-African American) 55.7; Magnesium 1.9 mg/dl (1.8-2.4); Phosphorus 2.6 mg/dl (2.5-4.9); Potassium 3.8 mmol/L (3.5-5.1)
[2019-02-06] MEDS: PANTOprazole 40 MG TAB PO SCH ×2 (09:21→20:07)
[2019-02-06] MEDS: TAMSULOSIN HCL 0.4 MG CAP PO SCH (09:21)
[2019-02-06] MEDS: DOCUSATE SODIUM/SENNA 50/8.6MG TAB PO SCH (09:21)
--- NOTE | 2019-02-06 14:45 | Hospitalist Progress Note ---
Date of Service February 06, 2019 Assessment & Plan (1) Aspiration pneumonia: Patient with chronic aspiration. He was evaluated by speech therapy during his last hospital stay. Recommendations for thick nectar for comfort solids and liquids, crushed medications, supervised meals, patient to be fully alert and upright during mealtime, medications to be given in a carrier, single bites with small sips and slow rate and no straws. - Continue Zosyn - Follow cultures Strict aspiration precautions as above Duo nebs and albuterol as needed Palliative care consulted - On 02/06, he has improved, but obviously continues to aspirate when he drinks even thickened liquids. Unclear what our long-term plan with him will be as he will continually aspirate. (2) Hypothermia: Patient with history of the same. Possibly secondary to sepsis in the s etting of elevated lactate and borderline hypotension. Mirian huarsenioer - By 02/06, he is largely back to normal. (3) Anemia: Patient with recent upper GI bleed resulting in acute blood loss anemia. Found to have 4 non-bleeding duodenal ulcers on EGD during previous hospital stay. Presently with Hgb = 8.3 and HCT = 27.8. Some blood noted on wiping by the ER staff. Continue twice daily PPI Continue to monitor CBC Transfuse for active bleed or hemoglobin less than 7 - None noted today on 02/06. (4) Hypernatremia: Sodium = 152. Same as previous admission. Per report, patient with poor p.o. intake as well as chronic aspiration and dysphasia. Monitor sodium; consider 1/2 normal saline bolus. - Drinking more today, so will refrain. Na down a bit to 151. (5) Failure to thrive: As above, patient with multiple underlying medical comorbidities and overall poor outcome. Not improving. Palliative care as above (6) Encephalopathy acute: Patient with baseline dementia, suspect some degree of acute metabolic encephalopathy. He became agitated during his prior hospitalization. Was evaluated by palliative care as well as psychiatry. Delirium prevention strategies with frequent orientation Avoid delirium provoking medications such as benzos/anticholinergics Treatment of underlying medical conditions as above (7) Hypotension: Blood pressure presently 100/45. He appears volume contracted on physical exam, possible infectious process contributing as well. Stable over the last few days. (8) CKD (chronic kidney disease): Patient with baseline creatinine of approximately 1.4. Avoid nephrotoxic agents, provide renal dosing were necessary Stable today at 1.17. (9) Atrial fibrillation: History of atrial fibrillation. Slow ventricular response. Was previously on digoxin, now being held. Continue to hold digoxin secondary to bradycardia, hold anticoagulation secondary to recent GI bleed. Stop telemetry monitoring as his HR has been stable for several days. (10) Hypothyroid: Chronic. TSH = 7.3 during previous admission. Continue Synthroid 50 mcg daily. Subjective Significantly improved today. Overall is more responsive and can answer his own name (AAOx1). Reports no fevers/chills, chest pain, shortness of breath, abdominal pain, nausea, or vomiting. Physical Exam Constitutional: WD/WN, vitals as above Eyes: EOM intact bilaterally; no conjunctival abnormality ENMT: external ear and nose normal, oropharynx normal Neck: trachea midline, no thyromegaly normal visual inspection Respiratory: + labored breathing; no respiratory distress Auscultation: + diminished lung sounds, + rales and + rhonchi; no wheezes Cardiovascular: RRR, no murmur, no edema Gastrointestinal (Abdomen): Inspection/Auscultation: abdomen normal to inspection; abdomen not distended Musculoskeletal: no cyanosis or clubbing, extremities motor strength 5/5 Skin: no rashes, warm and dry Neurologic: moves all extremities and awake Psychiatric: Orientation: alert and oriented to person; + uncooperative Results & Data Vital Signs (Past 12 Hours) Vital Signs Temp Pulse Resp BP Pulse Ox 02/06/19 11:25 36.3 C L 79 24 98/61 L 91 02/06/19 07:37 36.3 C L 57 L 20 114/36 L 100 02/06/19 03:15 36.2 C L 73 20 112/69 95 PG Care Time/CCT Total # of Minutes Spent Total Time Spent with Patient: Total time spent is greater than 50% in coordination of care (as documented) at patient's floor/unit and/or counseling patient: (1) Aspiration pneumonia Aspiration pneumonia type: unspecified Laterality: bilateral Lung location: lower lobe of lung Qualified Code(s): J69.0 - Pneumonitis due to inhalation of food and vomit (2) Hypothermia Encounter type: initial encounter Qualified Code(s): T68.XXXA - Hypothermia, initial encounter (3) Anemia Anemia type: unspecified type Qualified Code(s): D64.9 - Anemia, unspecified (4) Failure to thrive Failure to thrive age range: in adult Qualified Code(s): R62.7 - Adult failure to thrive (5) Hypotension Hypotension type: unspecified hypotension type Qualified Code(s): I95.9 - Hypotension, unspecified (6) CKD (chronic kidney disease) Chronic kidney disease stage: unspecified stage Qualified Code(s): N18.9 - Chronic kidney disease, unspecified (7) Atrial fibrillation Atrial fibrillation type: unspecified Qualified Code(s): I48.91 - Unspecified atrial fibrillation (8) Hypothyroid Hypothyroidism type: unspecified Qualified Code(s): E03.9 - Hypothyroidism, unspecified
[2019-02-06] MEDS: ATORVASTATIN 40 MG TAB PO SCH (20:07)
[2019-02-07] MEDS: PIPERACILLIN/TAZOBACTAM 3.375 GM in DEXTROSE 5% 100 ML IV SCH ×2 (00:43→09:48)
[2019-02-07 06:15] LABS: Hematocrit (blood only) 27.4 % (42-52); Hemoglobin 8.4 g/dL (14.0-18.0); Mean Corpuscular Hemoglobin 30.8 pg (25-34); Mean Corpuscular Hgb Conc 30.7 g/dL (32-36); Mean Corpuscular Volume 100.4 fL (80-100); Mean Platelet Volume 10.3 fL (7.4-10.4); Platelet Count 181 K/uL (130-400); RDW Coefficient of Variation 22.2 % (11.5-14.5); RDW Standard Deviation 79.9 fL (36.4-46.3); Red Blood Count 2.73 M/uL (4.7-6.1); White Blood Count 4.39 K/uL (4.8-10.8)
[2019-02-07] MEDS: LEVOTHYROXINE SODIUM 50 MCG TABLET PO SCH (06:38)
[2019-02-07 06:51] LABS: BUN Creatinine Ratio 13.1 (10-20); Calcium 8.4 mg/dl (8.5-10.1); Creatinine Clr Calc Pharmacy 41.9 ml/min; Est GFR (African American) 61.4; Potassium 3.6 mmol/L (3.5-5.1)
[2019-02-07] MEDS: PANTOprazole 40 MG TAB PO SCH ×2 (08:44→20:19)
[2019-02-07] MEDS: TAMSULOSIN HCL 0.4 MG CAP PO SCH (08:44)
[2019-02-07] MEDS: DOCUSATE SODIUM/SENNA 50/8.6MG TAB PO SCH (08:45)
--- NOTE | 2019-02-07 11:16 | Hospitalist Progress Note ---
Date of Service February 07, 2019 Assessment & Plan (1) Aspiration pneumonia: Patient with chronic aspiration. He was evaluated by speech therapy during his last hospital stay. Recommendations for thick nectar for comfort solids and liquids, crushed medications, supervised meals, patient to be fully alert and upright during mealtime, medications to be given in a carrier, single bites with small sips and slow rate and no straws. Strict aspiration precautions as above Duo nebs and albuterol as needed Palliative care consulted - He has improved, but obviously continues to aspirate when he drinks even thickened liquids. Unclear what our long-term plan with him will be as he will c ontinually aspirate. - On 02/07, switched from Zosyn to Augmentin as he has improved. (2) Hypothermia: Patient with history of the same. Secondary to sepsis in the setting of elevated lactate and borderline hypotension. - By 02/07, he is normothermic. (3) Anemia: Patient with recent upper GI bleed resulting in acute blood loss anemia. Found to have 4 non-bleeding duodenal ulcers on EGD during previous hospital stay. Presently with Hgb = 8.3 and HCT = 27.8. Some blood noted on wiping by the ER staff. Continue twice daily PPI Continue to monitor CBC Transfuse for active bleed or hemoglobin less than 7 - None noted today on 02/07. (4) Hypernatremia: Sodium = 152 on admission. Same as previous admission. Due to poor PO intake at [facility]. - Drinking more today, so will refrain. Na stable at 151. (5) Failure to thrive: As above, patient with multiple underlying medical comorbidities and overall poor outcome. Palliative care as above (6) Encephalopathy acute: Patient with baseline dementia, suspect some degree of acute metabolic encephalopathy. He became agitated during his prior hospitalization. Was evaluated by palliative care as well as psychiatry. Delirium prevention strategies with frequent orientation Avoid delirium provoking medications such as benzos/anticholinergics Treatment of underlying medical conditions as above (7) Hypotension: Blood pressure presently 120/75. He appears volume contracted on physical exam, possible infectious process contributing as well. Stable over the last few days. (8) CKD (chronic kidney disease): Patient with baseline creatinine of approximately 1.4. Avoid nephrotoxic agents, provide renal dosing were necessary Stable today at 1.22. (9) Atrial fibrillation: History of atrial fibrillation. Slow ventricular response. Was previously on digoxin, now being held. Continue to hold digoxin secondary to bradycardia, hold anticoagulation secondary to recent GI bleed. Stop telemetry monitoring as his HR has been stable for several days. (10) Hypothyroid: Chronic. TSH = 7.3 during previous admission. Continue Synthroid 50 mcg daily. Subjective Doing better today. In a chair, asking to get to a chair and move around. He denies any symptoms. Reports no fevers/chills, chest pain, shortness of breath, abdominal pain, nausea, or vomiting. Physical Exam Constitutional: WD/WN, vitals as above Eyes: EOM intact bilaterally; no conjunctival abnormality ENMT: external ear and nose normal, oropharynx normal Neck: trachea midline, no thyromegaly normal visual inspection Respiratory: no respiratory distress and no labored breathing Auscultation: + diminished lung sounds and + rales; no rhonchi and no wheezes Cardiovascular: RRR, no murmur, no edema Gastrointestinal (Abdomen): Inspection/Auscultation: abdomen normal to inspection; abdomen not distended Musculoskeletal: no cyanosis or clubbing, extremities motor strength 5/5 Skin: no rashes, warm and dry Neurologic: moves all extremities and awake Psychiatric: Orientation: alert, oriented to person and cooperative Results & Data Vital Signs (Past 12 Hours) Vital Signs Temp Pulse Resp BP Pulse Ox 02/07/19 07:24 36.4 C L 75 20 122/76 92 PG Care Time/CCT Total # of Minutes Spent Total Time Spent with Patient: Total time spent is greater than 50% in coordination of care (as documented) at patient's floor/unit and/or counseling patient: (1) Aspiration pneumonia Aspiration pneumonia type: unspecified Laterality: bilateral Lung location: lower lobe of lung Qualified Code(s): J69.0 - Pneumonitis due to inhalation of food and vomit (2) Hypothermia Encounter type: initial encounter Qualified Code(s): T68.XXXA - Hypothermia, initial encounter (3) Anemia Anemia type: unspecified type Qualified Code(s): D64.9 - Anemia, unspecified (4) Failure to thrive Failure to thrive age range: in adult Qualified Code(s): R62.7 - Adult failure to thrive (5) Hypotension Hypotension type: unspecified hypotension type Qualified Code(s): I95.9 - Hypotension, unspecified (6) CKD (chronic kidney disease) Chronic kidney disease stage: unspecified stage Qualified Code(s): N18.9 - Chronic kidney disease, unspecified (7) Atrial fibrillation Atrial fibrillation type: unspecified Qualified Code(s): I48.91 - Unspecified atrial fibrillation (8) Hypothyroid Hypothyroidism type: unspecified Qualified Code(s): E03.9 - Hypothyroidism, unspecified
[2019-02-07] MEDS: AMOXICILLIN/CLAVULANATE 875 MG TAB PO SCH (20:18)
[2019-02-07] MEDS: ATORVASTATIN 40 MG TAB PO SCH (20:19)
[2019-02-08] MEDS: LEVOTHYROXINE SODIUM 50 MCG TABLET PO SCH (05:49)
[2019-02-08] MEDS: AMOXICILLIN/CLAVULANATE 875 MG TAB PO SCH ×2 (08:36→17:21)
[2019-02-08] MEDS: TAMSULOSIN HCL 0.4 MG CAP PO SCH (08:37)
[2019-02-08] MEDS: PANTOprazole 40 MG TAB PO SCH ×3 (08:42→20:26)
[2019-02-08] MEDS: DOCUSATE SODIUM/SENNA 50/8.6MG TAB PO SCH (08:47)
--- NOTE | 2019-02-08 13:52 | Hospitalist Progress Note ---
Date of Service February 08, 2019 Assessment & Plan (1) Aspiration pneumonia: Patient with chronic aspiration. He was evaluated by speech therapy during his last hospital stay. Recommendations for thick nectar for comfort solids and liquids, crushed medications, supervised meals, patient to be fully alert and upright during mealtime, medications to be given in a carrier, single bites with small sips and slow rate and no straws. Strict aspiration precautions as above Duo nebs and albuterol as needed Palliative care consulted - He has improved, but obviously continues to aspirate when he drinks even thickened liquids. - On 02/08, his temp is a bit lower, but otherwise doing well. (2) Hypothermia: Patient with history of the same. Secondary to sepsis in the setting of elevated lactate and borderline hypotension. - By 02/07, he was normothermic. Another episode on 02/08. - Will get AM coritsol (3) Anemia: Patient with recent upper GI bleed resulting in acute blood loss anemia. Found to have 4 non-bleeding duodenal ulcers on EGD during previous hospital stay. Presently with Hgb = 8.3 and HCT = 27.8. Some blood noted on wiping by the ER staff. Continue twice daily PPI Continue to monitor CBC Transfuse for active bleed or hemoglobin less than 7 - None noted today on 02/08. (4) Hypernatremia: Sodium = 152 on admission. Same as previous admission. Due to poor PO intake at [facility]. - Drinking more today, so will refrain. Na stable at 151. (5) Failure to thrive: As above, patient with multiple underlying medical comorbidities and overall poor outcome. Palliative care as above (6) Encephalopathy acute: Patient with baseline dementia, suspect some degree of acute metabolic encephalopathy. He became agitated during his prior hospitalization. Was evaluated by palliative care as well as psychiatry. Delirium prevention strategies with frequent orientation Avoid delirium provoking medications such as benzos/anticholinergics Treatment of underlying medical conditions as above (7) Hypotension: Blood pressure presently 110/75. He appears volume contracted on physical exam, possible infectious process contributing as well. Stable over the last few days. (8) CKD (chronic kidney disease): Patient with baseline creatinine of approximately 1.4. Avoid nephrotoxic agents, provide renal dosing were necessary Stable on 02/07 at 1.22. (9) Atrial fibrillation: History of atrial fibrillation. Slow ventricular response. Was previously on digoxin, now being held. Continue to hold digoxin secondary to bradycardia, hold anticoagulation secondary to recent GI bleed. Stop telemetry monitoring as his HR has been stable for several days. (10) Hypothyroid: Chronic. TSH = 7.3 during previous admission. Continue Synthroid 50 mcg daily. Subjective Doing well today. Denies any shortness of breath today. No pain. Wants a blanket. Reports no fevers/chills, chest pain, shortness of breath, abdominal pain, nausea, or vomiting. Physical Exam Constitutional: WD/WN, vitals as above Eyes: EOM intact bilaterally; no conjunctival abnormality ENMT: external ear and nose normal, oropharynx normal Neck: trachea midline, no thyromegaly normal visual inspection Respiratory: no respiratory distress and no labored breathing Auscultation: + diminished lung sounds and + rales; no rhonchi and no wheezes Cardiovascular: RRR, no murmur, no edema Gastrointestinal (Abdomen): Inspection/Auscultation: abdomen normal to inspection; abdomen not distended Musculoskeletal: no cyanosis or clubbing, extremities motor strength 5/5 Skin: no rashes, warm and dry Neurologic: moves all extremities and awake Psychiatric: Orientation: alert, oriented to person and cooperative Results & Data Vital Signs (Past 12 Hours) Vital Signs Temp Pulse Resp BP Pulse Ox 02/08/19 11:15 36.9 C 02/08/19 07:07 36.4 C L 83 20 110/70 90 02/08/19 05:52 36.6 C 02/08/19 03:00 36.8 C PG Care Time/CCT Total # of Minutes Spent Total Time Spent with Patient: Total time spent is greater than 50% in coordination of care (as documented) at patient's floor/unit and/or counseling patient: (1) Aspiration pneumonia Aspiration pneumonia type: unspecified Laterality: bilateral Lung location: lower lobe of lung Qualified Code(s): J69.0 - Pneumonitis due to inhalation of food and vomit (2) Hypothermia Encounter type: initial encounter Qualified Code(s): T68.XXXA - Hypothermia, initial encounter (3) Anemia Anemia type: unspecified type Qualified Code(s): D64.9 - Anemia, unspecified (4) Failure to thrive Failure to thrive age range: in adult Qualified Code(s): R62.7 - Adult dhruv lure to thrive (5) Hypotension Hypotension type: unspecified hypotension type Qualified Code(s): I95.9 - Hypotension, unspecified (6) CKD (chronic kidney disease) Chronic kidney disease stage: unspecified stage Qualified Code(s): N18.9 - Chronic kidney disease, unspecified (7) Atrial fibrillation Atrial fibrillation type: unspecified Qualified Code(s): I48.91 - Unspecified atrial fibrillation (8) Hypothyroid Hypothyroidism type: unspecified Qualified Code(s): E03.9 - Hypothyroidism, unspecified
[2019-02-08] MEDS: ATORVASTATIN 40 MG TAB PO SCH ×2 (20:25→20:26)
[2019-02-09] MEDS: LEVOTHYROXINE SODIUM 50 MCG TABLET PO SCH ×2 (06:08→08:53)
[2019-02-09] MEDS: AMOXICILLIN/CLAVULANATE 875 MG TAB PO SCH (08:53)
[2019-02-09] MEDS: PANTOprazole 40 MG TAB PO SCH (08:53)
[2019-02-09] MEDS: TAMSULOSIN HCL 0.4 MG CAP PO SCH (08:53)
[2019-02-09] MEDS: DOCUSATE SODIUM/SENNA 50/8.6MG TAB PO SCH (08:57)
--- NOTE | 2019-02-09 16:21 | Discharge Summary ---
Date of Service February 09, 2019 Admission HPI Per Admitting Provider Katy Castanon is an 89-year-old male with multiple medical problems. He was recently admitted to [facility] from 01/23/2019 through 01/25/2019 for treatment of GI bleed secondary to peptic ulcers. He returned to [facility] on 01/27/2019 and was admitted for altered mental status with cough. He was admitted for aspiration pneumonia and metabolic encephalopathy. He was treated with antibiotics and IV fluids and ultimately discharged home to [facility] on 02/01/2019. Patient returns today with abnormal vital signs, hypothermia and difficulty breathing. Patient with underlying dementia and is unable to provide any details. No caregivers or family at bedside. When asked, patient denies pain or shortness of breath. He does think he may have a bladder infection. He then told me to get out of his room. ER course: Christy mauricio, albuterol neb x1 Principal Diagnosis Aspiration pneumonia Discharge Exam Constitutional WD/WN, vitals as above Eyes EOM intact bilaterally; no conjunctival abnormality ENMT external ear and nose normal, oropharynx normal Neck trachea midline, no thyromegaly normal visual inspection Respiratory no respiratory distress and no labored breathing Auscultation: + diminished lung sounds and + rales; no rhonchi and no wheezes Cardiovascular RRR, no murmur, no edema Gastrointestinal (Abdomen) Inspection/Auscultation: abdomen normal to inspection; abdomen not distended Musculoskeletal no cyanosis or clubbing, extremities motor strength 5/5 Skin no rashes, warm and dry Neurologic moves all extremities and awake Psychiatric Orientation: alert, oriented to person and cooperative Discharge Data Allergies Allergy/AdvReac Type Severity Reaction Status Date / Time No Known Allergies Allergy Unknown Verified 01/23/19 12:29 Consultations 02/03/19 23:19 ED Decision to Admit Stat 02/04/19 01:27 Consult Case Management - Discharge Planning Routine Hospital Course (1) Aspiration pneumonia: Patient with chronic aspiration. He was evaluated by speech therapy during his last hospital stay. Recommendations for thick nectar for comfort solids and liquids, crushed medications, supervised meals, patient to be fully alert and upright during mealtime, medications to be given in a carrier, single bites with small sips and slow rate and no straws. Strict aspiration precautions as above - Finish Augmentin in 2 days (End date: 02/10) - He has improved, but obviously continues to aspirate when he drinks even thickened liquids. Discussed with [facility]. They will do conservative measures, but he is now DNR/DNI. (2) Hypothermia: Patient with history of the same. Secondary to sepsis in the setting of elevated lactate and borderline hypotension. - By 02/07, he was normothermic. Another episode on 02/08. - Refused AM cortisol - Given his overall status, allowed him to refuse. (3) Anemia: Patient with recent upper GI bleed resulting in acute blood loss anemia. Found to have 4 non-bleeding duodenal ulcers on EGD during previous hospital stay. Continue twice daily PPI - No bleeding while inpatient. (4) Hypernatremia: Sodium = 152 on admission. Same as previous admission. Due to poor PO intake. - Drinking more today, so refrained from IV fluids. Na stable at 151. (5) Failure to thrive: As above, patient with multiple underlying medical comorbidities and overall poor outcome. Palliative care as above (6) Encephalopathy acute: Patient with baseline dementia, suspect some degree of acute metabolic encephalopathy. He became agitated during his prior hospitalization. Was ev aluated by palliative care as well as psychiatry. Back to baseline on discharge. (7) Hypotension: Blood pressure presently 110/75. He appears volume contracted on physical exam, possible infectious process contributing as well. Stable over the last few days. (8) CKD (chronic kidney disease): Patient with baseline creatinine of approximately 1.4. Avoid nephrotoxic agents, provide renal dosing were necessary Stable on 02/07 at 1.22. (9) Atrial fibrillation: History of atrial fibrillation. Slow ventricular response. Was previously on digoxin, now being held. Continue to hold digoxin secondary to bradycardia, hold anticoagulation secondary to recent GI bleed. Stop telemetry monitoring as his HR has been stable for several days. (10) Hypothyroid: Chronic. TSH = 7.3 during previous admission. Continue Synthroid 50 mcg daily. Total Time Total Time Spent Total Time Spent (In Minutes): 45 Discharge Plan Discharge Items Patient Disposition: Transfer Care Home Fac Reason For Visit: HYPOXIA Discharge Diagnosis: Aspiration Activity: Resume your previous activity Non-emergency contact: Primary Care Provider Call non-emergency contact if: your temperature is above 101 Follow-up/Referrals: [facility] [Primary Care Provider] - Diet Texture: Pureed (blended smooth) Liquid Consistency: [place] thick Addtl Attending Provider Instructions: Speech recommendations: 1) Puree diet with NECTAR thick liquids - NO STRAWS 2) Fully upright for all meals 3) NO FEEDING IF HE IS FATIGUED OR TIRED 4) Small bites, small sips, slow rate, alternate solids/liquids, crush meds He needs Augmentin BID for 2 more days. (End date: Evening dose on 02/10/2019.) Pending Studies at Discharge: No Stand-Alone Forms: My [facility] Skilled Items Patient informed of condition?: Yes DNR: Yes Discharge Level of Care: Skilled Communicable Disease: No Discharge Prognosis: Stable Lines: None Urinary Catheter: No Medications and DC Order Prescriptions: Continued multivitamin Tablet 1 tab PO DAILY RF: 0 atorvastatin [Lipitor] 40 mg tablet 40 mg PO HS RF: 0 levothyroxine [Synthroid] 50 mcg tablet 50 mcg PO DAILY RF: 0 cholecalciferol (vitamin D3) [Vitamin D3] 2,000 unit Tablet 2,000 unit PO DAILY RF: 0 acetaminophen 325 mg Tablet 650 mg PO Q6H PRN (Reason: Fever Or Pain) RF: 0 ipratropium-albuterol 0.5 mg-3 mg(2.5 mg base)/3 mL solution for nebulization 0 ml INHALATION Q4 PRN (Reason: Shortness Of Breath Or Wheezing) RF: 0 amoxicillin-pot clavulanate [Augmentin] 250-62.5 mg/5 mL suspension for reconstitution 10 ml PO Q8 RF: 0 sennosides-docusate sodium [Senokot-S] 8.6-50 mg Tablet 1 tab-cap PO DAILY RF: 0 magnesium hydroxide [Milk of Magnesia] 400 mg/5 mL Suspension 30 ml PO UD PRN (Reason: Constipation) RF: 0 tamsulosin [Flomax] 0.4 mg capsule 0.4 mg PO DAILY RF: 0 bisacodyl [Dulcolax (bisacodyl)] 10 mg Suppository 10 mg [place] DAILY PRN (Reason: Constipation) RF: 0 pantoprazole [Protonix] 40 mg Tablet,Delayed Release (Dr/Ec) 40 mg PO BID RF: 0 vitamin B ttrzex-H-FS-zinc cit 0.8-15 mg Tablet 1 tab PO DAILY RF: 0 Discontinued potassium chloride [Klor-Con M20] 20 mEq tablet,ER particles/crystals 20 meq PO DAILY RF: 0 Discharge Orders: Discharge Order (Routine); Ordered 02/09/19 Ordered By: Christian Herrera Admission Data Admit Date/Time: 02/05/19 16:45 Attending Provider: Christian Herrera Admit Provider: Jennifer Parra Primary Care Provider: [facility] Other Providers: Jennifer Parra Other Interventions: Discharge Summary Assessment (RN) Last Done: 02/09/19 10:49 DC Date/Time DO NOT enter until pt leaves facility: 02/09/19 12:49
== END 2019-02-09 12:49 | DRG 871 ==
LOC: ED 22:11 → 2E 22:11 → SUATTDRO 02-04 00:23 → 2E 02-04 00:53 → 4W 02-06 14:38